=== PATIENT | female | born 1950 | race Caucasian/White ===

== ENCOUNTER 2023-10-16 12:35 | Outpatient (RCR) | payer MEDICARE, OTHER, SELFPAY | END 2024-01-13 15:00 | disposition home or self-care (01) | LOC: HO.WCC 12:35 | PROVIDERS: PCP Internal Medicine; Referring Provider Internal Medicine; Visit Provider Surgery | DX: E10.621 Type 1 diabetes mellitus with foot ulcer (principal); L97.522 Non-pressure chronic ulcer of other part of left foot with fat layer exposed; E10.69 Type 1 diabetes mellitus with other specified complication; M86.472 Chronic osteomyelitis with draining sinus, left ankle and foot; E10.40 Type 1 diabetes mellitus with diabetic neuropathy, unspecified; L84 Corns and callosities; M20.42 Other hammer toe(s) (acquired), left foot; Z89.422 Acquired absence of other left toe(s) | CPT/HCPCS: 11042; 11043; 11044; 87070; 87073; 87205; 99212 ==

== ENCOUNTER 2023-12-13 15:27 | Outpatient (REF) | payer MEDICARE, OTHER, SELFPAY ==
--- NOTE | ~2023-12-13 | MR_ITS ---
EXAMINATION: MR FOOT WITHOUT AND WITH CONTRAST, LEFT CLINICAL INFORMATION: Nonhealing wound of left third toe, evaluate for osteomyelitis. COMPARISON: None available. TECHNIQUE: MRI of the left foot was performed before and after the intravenous administration of 10 mL Gadavist on a high-field scanner. FINDINGS: The exam is partially limited by image degrading motion artifact on multiple series. Third Digit: There is prominent plantarflexion at the PIP joint. Possible superficial defect/ulceration along the dorsal aspect of the joint extending over 7 mm craniocaudal and 8 mm transverse. There is abnormal decreased T1, increased T2 signal in the subcutaneous soft tissues surrounding the joint with concomitant enhancement compatible with cellulitis. There is is abnormal decreased T1, increased T2 signal with concomitant enhancement crossing the joint involving at least the proximal half of the middle phalanx in the distal half of the proximal phalanx. There also appears to be irregularity and possible attenuation related to erosive change of the distal aspect of the proximal phalanx. The margins of the proximal portion of the middle phalanx is not well-defined due to the artifact. There is a joint effusion. The distal phalanx is likely intact. At the third MTP joint there is prominent dorsiflexion. A probable dorsal subluxation of the proximal phalanx. No definite effusion. Marrow signal normal. There is attenuation of the overlying subcutaneous soft tissues without a clear ulceration. There is low T1/low T2 signal compatible with fibrotic change. The third tarsometatarsal joint is intact. ADDITIONAL FINDINGS: There is [id number] osteoarthritis of the first, second, fourth and fifth tarsometatarsal joints manifested by cartilage loss and/or heterogeneity and subchondral cystic change. There is also arthrosis of the naviculocuneiform joints manifested by subchondral cystic change and edema. There is fluid signal throughout the dorsal subcutaneous soft tissues without enhancement compatible with edema. There is an oval-shaped mass noted along the plantar aspect of the foot overlying the proximal first metatarsal. This appears within or overlying the distal end of the plantar fascia. This measures 10 mm transverse, 7 mm dorsal to plantar, and 16 mm proximal to distal. MUSCLES/TENDONS: Unremarkable. MR/MR foot LT wo/w con IMPRESSION: 1. Abnormality of the third digit with an appearance most compatible with septic arthritis of the PIP joint and osteomyelitis of the middle and proximal phalanges. 2. Additional abnormality of the third MTP joint compatible with dorsiflexion and subluxation. 3. Osteoarthritis of the midfoot. 4. Soft tissue abnormality along the plantar aspect of the foot overlying the proximal first metatarsal. This could reflect a plantar fibroma or other soft tissue mass. 5. Generalized edema in the dorsal subcutaneous soft tissues.
[2023-12-13] MEDS: gadobutroL 10 ML VIAL IVPUSH (16:40)
== END 2023-12-13 15:28 | disposition home or self-care (01) ==
LOC: HO.MRI 15:27
PROVIDERS: PCP Internal Medicine; Visit Provider Physician Assistant
DX: E11.622 Type 2 diabetes mellitus with other skin ulcer (principal); L97.316 Non-pressure chronic ulcer of right ankle with bone involvement without evidence of necrosis; E11.65 Type 2 diabetes mellitus with hyperglycemia
CPT/HCPCS: 73720; A9585

== ENCOUNTER 2024-01-01 13:29 | Outpatient (AMB) | payer MEDICARE, OTHER, SELFPAY ==
--- NOTE | 2024-01-01 14:14 | MHC.OFFVIS ---
Intake Vital Signs 01/01/24 14:21 Height 5 ft 9 in Weight 240 lb BMI 35.4 Pulse 74 Pulse Source Pulse Oximeter Pulse Oximetry (%) 98 Intake Visit Reasons: reff wound care toe wound Allergies latex Allergy (Unknown, Verified 01/01/24 14:33) Unknown penicillin G Allergy (Unknown, Verified 01/01/24 14:22) Unknown HPI reff wound care toe wound HPI Details She is her for evaluation left third toe osteomyelitis. She has toe burning on walking and next day looked poorly. She had 10 years ago left second toe infection after blister and toe was removed and healed well. She has DM and says no vascular disease. She has seen Wound Clinic. She has no fever or chills. [facility] Medical History (Updated 01/05/24 @ 22:24 by Dalila Larsen MD) Osteomyelitis Rheumatoid arthritis Diabetes mellitus Asthma Surgical History H/O total hysterectomy H/O colectomy H/O gastric bypass Review of Systems [facility] [place] Details[place] toe discomfort left third Physical Exam Vital Signs: Last Vital Signs Pulse 74 01/01/24 14:21 Pulse Ox 98 01/01/24 14:21 BMI result Body Mass Index 35.4 Const Other: General: cooperative Orientation/consciousness: patient oriented x3 HEENT Head: Yes normal to inspection Mouth: Normal oral and palatal mucosa present Eyes General: appearance normal, both eyes and all related structures Pupils: Equal, round and reactive pupils present Resp Effort & Inspection: normal respiratory effort Cardio Rate: regular rate Rhythm: regular rhythm GI Palpation (GI): Soft to palpation and nontender General: Yes no CVA tenderness Back/Spine/Pelvis Back: no CVA tenderness Skin General skin exam: no rashes or lesions noted Neuro General: patient oriented x3 Cranial nerves: Yes CN's II-XII intact bilaterally and Yes Equal, round and reactive pupils present Extrem Other: toe mild swelling ,no cellulitis neuropathy Psych Appearance: grossly normal Assessment & Plan Assessment & Plan (1) Osteomyelitis: Code(s): M86.9 - Osteomyelitis, unspecified Plan: She has no necrosis area. She has likely chronic infection toe possibly even back to time other toe was infected. Do not think custodial IV antibiotics would add much in semichronic at least toe infection (at least September) and no ulcer of size indicating antibiotics would help healing. Would recommend no IV antibiotics at this time and follow Podiatry (maybe selective bone removal third toe since bothering patient). Coding Level of Care Code New Pt Level 4 (99874) Diagnoses Osteomyelitis M86.9
[2024-01-01 14:21] VITALS: PULSE 74; O2SAT 98; BMI 35.4
== END 2024-01-01 14:49 | disposition home or self-care (01) ==
LOC: HO.HID 13:29
PROVIDERS: PCP Internal Medicine; Visit Provider Internal Medicine
DX: M86.9 Osteomyelitis, unspecified (principal)
CPT/HCPCS: 99204

== ENCOUNTER → 2024-01-01 13:29 | Outpatient (BNVA) | payer MEDICARE, OTHER, SELFPAY | PROVIDERS: PCP Internal Medicine; Visit Provider Internal Medicine | DX: M86.9 Osteomyelitis, unspecified (principal) | CPT/HCPCS: 99202 ==

== ENCOUNTER 2024-12-31 10:40 | Outpatient (AMB) | payer MEDICARE, OTHER, SELFPAY ==
--- NOTE | 2024-12-31 10:55 | MHC.PC.OV ---
Vital Signs 12/31/24 11:10 Height 5 ft 9 in Weight 246 lb BMI 36.3 BP 98/80 Blood Pressure Location Rt brachial Position Sitting Respiration 14 Pulse 90 Pulse Source Pulse Oximeter Pulse Oximetry (%) 98 Oxygen Delivery Method Room Air Intake Visit Reasons: Est. Care dm-Asthma Intake Note: New patient visit Tool Technician Required: No Allergies latex Allergy (Unknown, Verified 12/31/24 10:55) Unknown penicillin G Allergy (Unknown, Verified 12/31/24 10:55) Unknown Medication List - Last Reconciled 12/31/24 by Nancy Thomas PA-C aspirin 81 mg PO DAILY cholecalciferol (vitamin D3) 25 mcg PO DAILY krill oil mg PO levothyroxine 112 mcg PO DAILY lisinopril 2.5 mg PO DAILY mecobalamin (vitamin B12) 1,000 mcg PO DAILY methotrexate (PF) 20 mg subcut QWEEK vitamin E mixed units PO Tobacco use date assessed: 12/31/24 Fall risk assessment: 1 Fall in past year Last assessed Fall Risk: 12/31/24 Dental Screening Dental Screen Date: 12/31/24 Did you have a dental visit in the last 12 months?: Yes Did you have a dental problem in the last 6 months where you did not have access to dental care?: No Was dental information given to patient?: Patient has dentist HPI Est. Care dm-Asthma HPI Details Pt is a 74 y/o female who presents today to establish care.. She has a hx of type 1 dm, pump controlled, RA, hypothyroid, vit d def, asthma. She is transferring practices because her PCP is now in [facility]. Endo: has a hx of t1dm. She is managed by Jovan marino. Her last A1c was 5.8. -recent left foot infection and is s/p 4th toe amputation 3 weeks ago. She has already lost toes 2-4 toes. Currently on keflex. -Last eye exam follows with retina specialist q 6 months Hypothyroid-on levothyroxine 112 mcg daily. States that this is always a managed by her PCP. Rheum: Dr. Lr. She is managed with methotrexate. Pulm: has a hx of asthma. Uses albuterol prn. She is on breo for maintenance. She denies needing any refills today. States that her asthma flares up seasonally but has overall been well-controlled. GI: s/p right coloectomy approximately 15 years ago. She intestinal torsion. Mammo: UTD- contreras Pap: s/p total hysterectomy bone density: UTD- follows with endo at [facility] colonoscopy: refuses [facility] Medical History (Updated 12/31/24 @ 11:45 by Nancy Thomas PA-C) Osteomyelitis Rheumatoid arthritis Diabetes mellitus Asthma Surgical History H/O total hysterectomy H/O colectomy H/O gastric bypass Family History (Updated 12/31/24 @ 11:19 by Betsy Martinez CMA) Mother High cholesterol Father Cardiovascular disease Other Thyroid disorder Social History (Updated 12/31/24 @ 11:17 by Betsy Martinez CMA) Housing: House Alcohol intake: current Comment: One glass of wine Patient Tobacco Use Status: Never used Tobacco e-Cigarette/Vaping Use: Never Used Second Hand Smoke Exposure: No service: No Current occupational status: retired Cognitive needs: No Hearing needs: Yes (hearing aids) Vision needs: Yes (glasses) Questionnaire PHQ-9 Over the last 2 weeks, how often have you been bothered by any of the following problems? 1. Little interest or pleasure in doing things: not at all 2. Feeling down, depressed, or hopeless: not at all 3. Trouble falling or staying asleep, or sleeping too much: not at all 4. Feeling tired or having little energy: not at all 5. Poor appetite or overeating: not at all 6. Feeling bad about yourself - or that you are a failure or have let yourself or your family down: not at all 7. Trouble concentrating on things, such as reading the newspaper or watching television: not at all 8. Moving or speaking so slowly that other people could have noticed. Or the opposite - being so fidgety or restless that you have been moving around a lot more than usual: not at all 9. Thoughts that you would be better off or of hurting yourself in some way: not at all Total score: 0 Depression Screening Interpretation: Negative Depression Screening Done: Yes 52964 - PHQ-9 Billing: Yes Source: Developed by Drs. Christopher Palacios, Juana Melton, Louis Moralez and colleagues, with an educational kena from [employer]. Thrive Questionnaire Date Thrive assessed: 12/31/24 I am a: Patient What is your living situation today?: I have a steady place to live Within the past 12 months, did the food you bought not last and you didn't have the money to get more?: Never true Within the past 12 months, did you worry whether your food would run out before you got money to buy more?: Never true Do you have trouble paying for medicines?: No Do you have trouble getting transportation to medical appointments?: No Do you have trouble paying your heating and electricity bill?: No Do you have trouble taking care of your child, family member or friend?: No Do you have trouble with day-to-day activities such as bathing, preparing meals, shopping, managing finances, etc.?: No Are you currently unemployed and looking for a job?: No Are you interested in more education?: No Please select the resources that you would like help with: None Currently or been in a relationship where the following occur: No concerns reported THRIVE Score: 0 AUDIT C Alcohol Use Questionnaire (AUDIT-C) 1. How often do you have a drink containing alcohol?: Monthly or less 2. How many drinks containing alcohol do you have on a typical day when you are drinking?: 1 or 2 3. How often do you have six or more drinks on one occasion?: Never Total Score: 1 Score Reviewed/Action Taken: Yes ZAINAB-7 AMB Questionnaire ZAINAB-7 Date ZAINAB - 7 assessed: 12/31/24 Feeling nervous, anxious, or on edge: 0 = Not at all Not being able to stop or control worryin = Not at all Worrying too much about different things: 0 = Not at all Trouble relaxin = Not at all Being so restless that it is hard to sit still: 0 = Not at all Becoming easily annoyed or irritable: 0 = Not at all Feeling afraid as if something awful might happen: 0 = Not at all Total ZAINAB-7 score (0-4 normal; 5-9 mild; 10-14 moderate; 15-21 severe): 0 Source: Developed by Drs. Christopher Palacios, Louis Saldaña and colleagues, with an educational kena from [employer] ZAINAB-7 Assessment Billing ZAINAB-7 Assessment Tool: ZAINAB-7 Assessment 61438 Physical exam (Primary Care) Vital Signs: Last Vital Signs Pulse 90 12/31/24 11:10 Resp 14 12/31/24 11:10 BP 98/80 12/31/24 11:10 Pulse Ox 98 12/31/24 11:10 Oxygen Delivery Method Room Air 12/31/24 11:10 BMI result Body Mass Index 36.3 Tobacco/Smoking Status: Tobacco use Status Tobacco use date assessed 12/31/24 12/31/24 11:20 Patient Tobacco Use Status Never used Tobacco 12/31/24 11:20 e-Cigarette/Vaping Use Never Used 12/31/24 11:20 PHQ-9: PHQ-9 Score PHQ-9: Total score 0 12/31/24 11:28 Depression Screening Interpretation: Negative Thrive Assessment: Date of Thrive Assessment Date Thrive assessed 12/31/24 12/31/24 11:20 Currently or been in a relationship where the following occur: No concerns reported Const Orientation/consciousness: patient oriented x3 HENMT Ears: hearing grossly normal bilaterally Neck Thyroid: Thyroid normal Lymphatic: no lymphadenopathy noted Resp Auscultation: clear to auscultation bilaterally Cardio Rate: regular rate Rhythm: regular rhythm Heart sounds: S1 normal heart sound present and S2 normal heart sound present GI Inspection: Yes normal to inspection Palpation (GI): Soft to palpation and Other GI palpation findings present (nontender, no cva tenderness) Auscultation: normoactive bowel sounds Rectal Exam - Female: deferred Skin General skin exam: no rashes or lesions noted Neuro General: patient oriented x3, gait normal and no focal motor deficits Coding Level of Care Code New Pt Level 4 (69540) Complex EM visit Add On G2211 Diagnoses Asthma J45.909 Rheumatoid arthritis M06.9 Hypothyroid E03.9 Diabetes mellitus type 1, with complication, on residential insulin pump E10.8; Z96.41 Dyslipidemia E78.5 Additional Codes ZAINAB-7 Assessment Billing - ZAINAB-7 Assessment Tool: ZAINAB-7 Assessment 07749 ([id number]) PHQ-9 - 32529 - PHQ-9 Billing: Yes ([id number]) Assessment & Plan Assessment & Plan (1) Asthma: Code(s): J45.909 - Unspecified asthma, uncomplicated Category: Medical Plan: Uncomplicated. Continue with current regimen (2) Rheumatoid arthritis: Code(s): M06.9 - Rheumatoid arthritis, unspecified Category: Medical Plan: Being managed by Rheumatology. On methotrexate but currently on hold due to recent left toe amputation and antibiotic use (3) Hypothyroid: Code(s): E03.9 - Hypothyroidism, unspecified Category: Medical Plan: TSH ordered (4) Diabetes mellitus type 1, with complication, on residential insulin pump: Code(s): E10.8 - Type 1 diabetes mellitus with unspecified complications; Z96.41 - Presence of insulin pump (external) (internal) Category: Medical Plan: Following up with [facility]. Currently well managed. Going to talk with them about starting Mounjaro to see if that will help her with weight loss. (5) Dyslipidemia: Code(s): E78.5 - Hyperlipidemia, unspecified Category: Medical Plan: Lipids ordered. We will monitor. Orders: Orders Complete Blood Count Auto Diff Today E03.9 - Hypothyroidism, unspecified, E10.8 - Type 1 diabetes mellitus with unspecified complications, E78.5 - Hyperlipidemia, unspecified, J45.909 - Unspecified asthma, uncomplicated, M06.9 - Rheumatoid arthritis, unspecified, Z96.41 - Presence of insulin pump (external) (internal) Comprehensive Met. Panel Today E03.9 - Hypothyroidism, unspecified, E10.8 - Type 1 diabetes mellitus with unspecified complications, E78.5 - Hyperlipidemia, unspecified, J45.909 - Unspecified asthma, uncomplicated, M06.9 - Rheumatoid arthritis, unspecified, Z96.41 - Presence of insulin pump (external) (internal) TSH reflex Free T4 Today E03.9 - Hypothyroidism, unspecified, E10.8 - Type 1 diabetes mellitus with unspecified complications, E78.5 - Hyperlipidemia, unspecified, J45.909 - Unspecified asthma, uncomplicated, M06.9 - Rheumatoid arthritis, unspecified, Z96.41 - Presence of insulin pump (external) (internal) Microalbumin, Random (w Creat) Today E03.9 - Hypothyroidism, unspecified, E10.8 - Type 1 diabetes mellitus with unspecified complications, E78.5 - Hyperlipidemia, unspecified, J45.909 - Unspecified asthma, uncomplicated, M06.9 - Rheumatoid arthritis, unspecified, Z96.41 - Presence of insulin pump (external) (internal) Medications: New levothyroxine 112 mcg PO DAILY 90 tabs 2RF
[2024-12-31 11:10] VITALS: BP 98/80; PULSE 90; RESP 14; O2SAT 98; BMI 36.3
== END 2024-12-31 11:58 | disposition home or self-care (01) ==
LOC: HO.HMCFM 10:40
PROVIDERS: PCP Physician Assistant; Visit Provider Physician Assistant
DX: J45.909 Unspecified asthma, uncomplicated (principal); M06.9 Rheumatoid arthritis, unspecified; E03.9 Hypothyroidism, unspecified; E10.8 Type 1 diabetes mellitus with unspecified complications; Z96.41 Presence of insulin pump (external) (internal); E78.5 Hyperlipidemia, unspecified

== ENCOUNTER → 2024-12-31 10:40 | Outpatient (BNVA) | payer MEDICARE, OTHER, SELFPAY | PROVIDERS: PCP Physician Assistant; Visit Provider Physician Assistant | DX: J45.909 Unspecified asthma, uncomplicated (principal); M06.9 Rheumatoid arthritis, unspecified; E03.9 Hypothyroidism, unspecified; E78.5 Hyperlipidemia, unspecified; E10.8 Type 1 diabetes mellitus with unspecified complications; Z96.41 Presence of insulin pump (external) (internal) | CPT/HCPCS: 96127; 99202 ==

== ENCOUNTER 2025-07-14 12:28 | Outpatient (AMB) | payer MEDICARE, OTHER, SELFPAY ==
--- OUTSIDE RECORDS SUMMARY | 2022-01-04 09:23 | XMS_ITS | Encounter Summary ---
Author Organization [facility] Address [address] [place] [address] Phone Care Team Providers Care Sound Technician Supervisor Name Role Phone Julieth Quiroz Unavailable [phone] Justin Stephens MD Unavailable [email or web address] Mariza Helm MD Unavailable [phone] Latanya Blackman MD Primary Care Provider Encounter Details Date Type Department Care Team (Late st Contact Info) Description 01/04/2022 9:23 AM EDT Hospital Encounter [facility] [address] [place] [id number] Carlos Chavez PA [address] [place] [id number] [email or web address] Social History Tobacco Use Types Packs/Day Years Used Date Smoking Tobacco: Never Passive Smoke Exposure: Never Smokeless Tobacco: Never Alcohol Use Standard Drinks/Week Comments Yes 1 (1 standard drink = 0.6 oz pur e alcohol) 1 or 2 times a year Education Answer Date Recorded Are you interested in more education? Not on lori e 01/25/2023 Are you concerned about learning? Not on file 01/25/2023 No 01/25/2023 No 01/25/2023 Food Answer Date Recorded Within the past 6 months we worried whether our food would run out before we got money to buy more. Never True 08/13/2024 Within the past 6 months the food we bought just didn't last and we didn't have enough money to get more. Never True Residential Stability Answer Date Recor ded What is your housing situation today? I have nabor murillo 08/13/2024 How many times have you move d in the past 12 months? Zero (I did not move) 08/13/2024 Paying for Meds Answer Date Recorded Do you have trouble paying for medicines? No 08/13/2024 Paying Utility Bills Answer Date Record ed Do you have trouble paying your heating or elect ricity bill? No 08/13/2024 Transportation Answer Date Recorded Has the lack of transportati on kept you from medical appointments or from getting medications? No 08/13/2024 Digital Access Answer Date Recorded Yes 08/13/2024 Yes 08/13/2024 Do you have reliable internet access at home? No 08/13/2024 Do you have a device (e.g., phone, tablet, computer) with a working camera? Yes 08/13/2024 Intimate Partner Violence Answer Date R ecorded Are you denied basic needs s uch as food, clothing, or medical care? No 12/08/2024 In the past 12 months have y ou been in a relationship with a person who hurts, threatens, or tries to control you? No 12/08/2024 Are you denied basic needs s uch as food, clothing, or medical care? No 12/08/2024 In the past 12 months have y ou been in a relationship with a person who hurts, threatens, or tries to control you? No 12/08/2024 Comments No Sex and Gender Information Value Date Recorded Sex Assigned at Female 10/07/2023 4:10 AM EST Legal Sex Female 9:59 PM EDT Gender Identity Female 10/07/2023 4:10 AM EST Sexual Orientation Straight 12/08/2024 3: 48 AM EDT documented as of this encounter Functional Status * Calculated C-SSRS Risk Score (Lifetime/Recent) Answer Date of Assessment Author No Risk Indicated 12/08/2024 3:33 AM EDT Kathy Gannon RN * [place] Suicide Severity Rating Scale (Screener/Recent Self-Report) Question Answer Date of Assessment Author 1. Wish to be (Past 1 Month) No 025 3:33 AM EDT Kathy Gannon RN 2. Non-Specific Active Suici keven Thoughts (Past 1 Month) No 12/08/2024 3:33 AM EDT Cristo Gannon RN 6. Suicidal Behavior (Lifetime) No 3:33 AM EDT Kathy Gannon RN documented as of this encounter Plan of Treatment Upcoming Encounters Date Type Department Care Team (Late st Contact Info) Description 07/19/2025 1:15 PM EDT Appointment [facility] [address] [place] [address] Julieth Quiroz PA [address] [place] [address] [email or web address] Acquisition 08/16/2025 10:20 AM EST Office Visit [facility] [address] [place] [address] [place] [address] Mariza Helm MD [address] [place] [address], [address] [place] [id number] 09/08/2025 9:30 AM EST Office Visit [facility] [address] [place] [address] [place] [address] Portia Kiser MD [address] [place] [address], [address] [place] [address] 11/16/2025 11:00 AM EST Nutrition [facility] [address] [place] [address] [place] [address] Scarlet Soares LDN [address] [place] [address], [address] [place] [id number] documented as of this encounter Procedures Procedure Name Priority Date/Time Associated Diagnosis Comments XR CHEST PA AND LATERAL 2 VIEWS Urgent/patient waiting 01/04/2022 9:30 AM EDT Acute bronchitis, unspecified organism documented in this encounter Results * XR CHEST PA AND LATERAL 2 VIEWS (01/04/2022 9:30 AM EDT) Anatomical Region Laterality Modality Chest Computed Radiogr aphy 01/04/2022 10:0 6 AM EDT Impressions 01/04/2022 10:11 AM EDT No acute cardiopulmonary process. Narrative 01/04/2022 10:11 AM EDT XR CHEST PA AND LATERAL 2 VIEWS COMPARISON: 10/26/19 chest radiographs. FINDINGS: Devices/Tubes/Lines: None. Lungs: No focal consolidation or pulmonary edema. Pleura: No pleural effusion or pneumothorax. Heart/Mediastinum: Normal heart and mediastinum. Bones/Soft Tissues: Mild degenerative changes of the thoracic spine. Procedure Note Zulay Mccarthy MD - 01/04/2022 XR CHEST PA AND LATERAL 2 VIEWS COMPARISON: 10/26/19 chest radiographs. FINDINGS: Devices/Tubes/Lines: None. Lungs: No focal consolidation or pulmonary edema. Pleura: No pleural effusion or pneumothorax. Heart/Mediastinum: Normal heart and mediastinum. Bones/Soft Tissues: Mild degenerative changes of the thoracic spine. IMPRESSION: No acute cardiopulmonary process. Carlos GARCIA IMG XR CHEST Final Resul t documented in this encounter Visit Diagnoses Not on filedocumented in this encounter Additional Health Concerns Infection Onset Date Last Indicated Resolved Time CoV-Risk 01/04/2022 01/04/2022 01/15/2022 1:2 1 AM EDT CoV-Risk 12/27/2023 12/27/2023 01/07/2024 1:22 AM EDT documented as of this encounter Care Teams Sound Technician Supervisor Relationship Specialty Start Date End Date Latanya Blackman MD [address] [place] [address] [email or web address] PCP - General Internal Medicine 08/15/20 01/05/25 Julieth Quiroz PA [address] [place] [address] [email or web address] Acquisition Historical LMR Provider 07/15/1706/01 Justin Stephens MD [email or web address] Historical LMR Provider 07/15/17 Mariza Helm MD [address] [place] [address], [address] [place] [id number] [email or web address] Historical LMR Provider 07/15/17 documented as of this encounter Additional Source Comments The information contained in this document represents components of the legal health record. It is not the complete legal health record.[facility]
--- NOTE | 2025-07-14 12:49 | MHC.PC.OV ---
Vital Signs 07/14/25 12:52 Pulse Oximetry (%) 98 Oxygen Delivery Method Room Air Intake Visit Reasons: med review Intake Note: Medication follow up Cement Finisher Apprentice Required: No Allergies latex Allergy (Unknown, Verified 07/14/25 12:49) Unknown penicillin G Allergy (Unknown, Verified 07/14/25 12:49) Unknown Medication List - Last Reconciled 07/14/25 by Nancy Thomas PA-C ascorbic acid (vitamin C) 250 mg PO DAILY aspirin 81 mg PO DAILY blood sugar diagnostic (OneTouch Ultra Test) cephalexin 500 mg PO QID cholecalciferol (vitamin D3) 25 mcg PO DAILY denosumab 60 mg subcut [id number] ergocalciferol (vitamin D2) 1,250 mcg PO QWEEK fluticasone furoate-vilanterol 200-25 mcg/dose 1 inh inhalation DAILY glucagon 3 mg/actuation (Baqsimi) mg intranasal insulin aspart U-100 (Novolog U-100 Insulin aspart) 1 - 40 units subcut DAILY krill oil mg PO leucovorin calcium 5 mg PO DAILY levothyroxine 112 mcg PO DAILY lisinopril 5 mg PO DAILY mecobalamin (vitamin B12) 1,000 mcg PO DAILY methotrexate (PF) 20 mg subcut QWEEK montelukast (Singulair) 10 mg PO BEDTIME montelukast 10 mg PO DAILY multivitamin 1 tab PO DAILY omeprazole 20 mg PO DAILY tramadol 50 mg PO Q6H PRN vitamin E mixed units PO Tobacco use date assessed: 07/14/25 Dental Screening Dental Screen Date: 12/31/24 HPI med review HPI Details Pt is a 74 y/o female who presents today to establish care.. She has a hx of type 1 dm, pump controlled, RA, hypothyroid, vit d def, asthma. She is transferring practices because [facility] Endo: has a hx of t1dm. She is managed by Diane marino. Her last A1c was 6. -foot healed from osteomyelitis. states the two remaining toes are intact. -Last eye exam follows with retina specialist q 6 months Hypothyroid-on levothyroxine 112 mcg daily. States that this is always a managed by her PCP. Rheum: Dr. Lr. She is managed with methotrexate. Pulm: has a hx of asthma. Uses albuterol prn. She is on breo for maintenance. She denies needing any refills today. States that her asthma flares up seasonally but has overall been well-controlled. GI: s/p right coloectomy approximately 15 years ago. She intestinal torsion. Pysch: does not sleep and does not want any medication for it. Mammo: UTD- [facility], needs more imaging on recent 06/29/25 scan- booked 10.20 Pap: s/p total hysterectomy bone density: UTD- follows with endo at [facility] colonoscopy: refuses [facility] Medical History (Updated 12/31/24 @ 11:45 by Nancy Thomas PA-C) Osteomyelitis Rheumatoid arthritis Diabetes mellitus Asthma Surgical History H/O total hysterectomy H/O colectomy H/O gastric bypass Family History (Updated 12/31/24 @ 11:19 by Betsy Martinez CMA) Mother High cholesterol Father Cardiovascular disease Other Thyroid disorder Social History (Updated 12/31/24 @ 11:17 by Betsy Martinez CMA) Housing: House Alcohol intake: current Comment: One glass of wine Patient Tobacco Use Status: Never used Tobacco e-Cigarette/Vaping Use: Never Used Second Hand Smoke Exposure: No service: No Current occupational status: retired Cognitive needs: No Hearing needs: Yes (hearing aids) Vision needs: Yes (glasses) Questionnaire Thrive Questionnaire Date Thrive assessed: 12/31/24 I am a: Patient What is your living situation today?: I have a steady place to live Within the past 12 months, did the food you bought not last and you didn't have the money to get more?: Never true Within the past 12 months, did you worry whether your food would run out before you got money to buy more?: Never true Do you have trouble paying for medicines?: No Do you have trouble getting transportation to medical appointments?: No Do you have trouble paying your heating and electricity bill?: No Do you have trouble taking care of your child, family member or friend?: No Do you have trouble with day-to-day activities such as bathing, preparing meals, shopping, managing finances, etc.?: No Are you currently unemployed and looking for a job?: No Are you interested in more education?: No Please select the resources that you would like help with: None Currently or been in a relationship where the following occur: No concerns reported THRIVE Score: 0 ZAINAB-7 AMB Questionnaire ZAINAB-7 Date ZAINAB - 7 assessed: 12/31/24 Source: Developed by Drs. Christopher Palacios, Juana Melton, Louis Moralez and colleagues, with an educational kena from [employer]. Physical exam (Primary Care) Vital Signs: Last Vital Signs Pulse Ox 98 07/14/25 12:52 Oxygen Delivery Method Room Air 07/14/25 12:52 Tobacco/Smoking Status: Tobacco use Status Tobacco use date assessed 07/14/25 07/14/25 12:55 Patient Tobacco Use Status Never used Tobacco 07/14/25 12:55 e-Cigarette/Vaping Use Never Used 07/14/25 12:55 Thrive Assessment: Date of Thrive Assessment Date Thrive assessed 12/31/24 07/14/25 12:55 Currently or been in a relationship where the following occur: No concerns reported Const Orientation/consciousness: patient oriented x3 HENMT Ears: hearing grossly normal bilaterally Neck Thyroid: Thyroid normal Lymphatic: no lymphadenopathy noted Resp Auscultation: clear to auscultation bilaterally Cardio Rate: regular rate Rhythm: regular rhythm Heart sounds: S1 normal heart sound present and S2 normal heart sound present GI Inspection: Yes normal to inspection Palpation (GI): Soft to palpation and Other GI palpation findings present (nontender, no cva tenderness) Auscultation: normoactive bowel sounds Rectal Exam - Female: deferred Skin General skin exam: no rashes or lesions noted Neuro General: patient oriented x3, gait normal and no focal motor deficits Coding Level of Care Code Est Pt Level 4 (39757) Complex EM visit Add On G2211 Diagnoses Diabetes mellitus type 1, with complication, on scale technician insulin pump E10.8; Z96.41 Hypothyroid E03.9 Rheumatoid arthritis M06.9 Asthma J45.909 Assessment & Plan Assessment & Plan (1) Diabetes mellitus type 1, with complication, on scale technician insulin pump: Code(s): E10.8 - Type 1 diabetes mellitus with unspecified complications; Z96.41 - Presence of insulin pump (external) (internal) Category: Medical Plan: very well managed by diane (2) Hypothyroid: Code(s): E03.9 - Hypothyroidism, unspecified Category: Medical Plan: Currently well-controlled. Continue current regimen. We will monitor (3) Rheumatoid arthritis: Code(s): M06.9 - Rheumatoid arthritis, unspecified Category: Medical Plan: Overall uses Tylenol Arthritis strength and rarely takes a tramadol if absolutely needed. Managed by Rheumatology (4) Asthma: Code(s): J45.909 - Unspecified asthma, uncomplicated Category: Medical Plan: Refilled inhalers today Medications: New montelukast (Singulair) 10 mg PO BEDTIME 90 tabs 3RF montelukast (Singulair) 10 mg PO BEDTIME 90 tabs 3RF omeprazole 20 mg PO DAILY 90 caps 3RF lisinopril 2.5 mg PO DAILY albuterol sulfate 90 mcg/actuation (Ventolin HFA) 2 puffs inhalation Q6H PRN 8.5 grams 5RF shortness of breath or wheezing Breo Ellipta 200-25 mcg/dose (fluticasone furoate-vilanterol) 1 inh inhalation DAILY 60 ea 5RF NS Refilled levothyroxine 112 mcg PO DAILY 90 tabs 2RF
[2025-07-14 12:52] VITALS: O2SAT 98
--- OUTSIDE RECORDS SUMMARY | 2025-07-14 15:43 | XMS_ITS | Encounter Summary ---
Author Organization [facility] Address [address] [place] [address] Phone Care Team Providers Care Implementation Services Analyst Name Role Phone Julieth Quiroz Unavailable [phone] Justin Stephens MD Unavailable [email or web address] Mariza Helm MD Unavailable [phone] Latanya Blackman MD Primary Care Provider Nancy Thomas Primary Care Provider [phone] Encounter Details Date Type Department Care Team (Latest Contact Info) Description 07/09/2022 Transcribe Orders Virtual Department [address] [place] [address] Julieth Quiroz PA [address] [place] [address] [email or web address] Breast screening (Primary Dx) Social History Tobacco Use Types Packs/Day Years Used Date Smoking Tobacco: Never Smokeless Tobacco: Never Alcohol Use Standard Drinks/Week Comments Yes 1 (1 standard drink = 0.6 oz pur e alcohol) 1 or 2 times a year Comments No Sex and Gender Information Value Date Recorded Sex Assigned at Female 10/07/2023 4:10 AM EST Legal Sex Female 9:59 PM EDT Gender Identity Female 10/07/2023 4:10 AM EST Sexual Orientation Straight 12/08/2024 3: 48 AM EDT documented as of this encounter Plan of Treatment Upcoming Encounters Date Type Department Care Team (Late st Contact Info) Description 07/19/2025 1:15 PM EDT Appointment [facility] [address] [place] [address] Julieth Quiroz PA [address] [place] [address] [email or web address] 08/16/2025 10:20 AM EST Office Visit [facility] [address] [place] [address] [place] [address] Mariza Helm MD [address] [place] [address], 1[address] [place] [address] 09/08/2025 9:30 AM EST Office Visit [facility] [address] [place] [address] [place] [address] Portia Kiser MD [address] [place] [address], [address] [place] [address] 11/16/2025 11:00 AM EST Nutrition [facility] [address] [place] [address] Scarlet Soares LDN [address] [place] [address], [address] [place] [address] documented as of this encounter Results * BI MAMMOGRAM SCREENING WITH TOMOSYNTHESIS WITH CAD (BILATERAL) (07/27/2022 12:34 PM EDT) Anatomical Region Laterality Modality Breast Left, Breast Right, Breast Bilateral Bila teral Mammography 07/31/2022 2:03 PM EDT Impressions 07/31/2022 2:09 PM EDT No mammographic signs of malignancy. Annual screening is recommended. BI-RADS CATEGORY: 2 - Benign finding. DENSITY: There are scattered fibroglandular densities. Narrative 07/31/2022 2:09 PM EDT Bilateral mammography is performed in conjunction with computed aided detection. 3-D tomography along with 2-D C view imaging was also performed. Comparison made to previous dated as far back as 10/19/2003 and as recent as 10/31/2020. No suspicious masses, areas of architectural distortion or suspicious microcalcifications. A few diffuse bilateral calcifications are stable. Procedure Note Torsten Reilly MD - 07/31/2022 Bilateral mammography is performed in conjunction with computed aideddetection. 3-D tomography along with 2-D C view imaging was alsoperformed. Comparison made to previous dated as far back as 10/19/2003 andas recent as 10/31/2020. No suspicious masses, areas of architectural distortion or suspiciousmicrocalcifications. A few diffuse bilateral calcifications are stable. IMPRESSION: No mammographic signs of malignancy. Annual screening is recommended. BI-RADS CATEGORY: 2 - Benign finding. DENSITY: There are scattered fibroglandular densities. Julieth GARCIA IMG MG EXAMS Final Result documented in this encounter Visit Diagnoses Diagnosis Breast screening- Primary Breast screening, unspecified Breast screening Breast screening, unspecified documented in this encounter Additional Health Concerns Infection Onset Date Last Indicated Resolved Time CoV-Risk 12/27/2023 12/27/2023 01/07/2024 1:22 AM EDT documented as of this encounter Care Teams Implementation Services Analyst Relationship Specialty Start Date End Date Latanya Blackman MD [address] [place] [address] PCP - General Internal Medicine 08/15/20 01/05/25 Nancy Thomas PA [address] [place] [address] PCP - General Physician Supervisor Reclamation 01/06/25 Julieth Quiroz PA [address] [facility] [place] [address] [email or web address] Historical LMR Provider 07/15/1706/01 Justin Stephens MD [email or web address] Historical LMR Provider 07/15/17 Mariza Helm MD [address] [place] [address], 1[address] [place] [address] [email or web address] Historical LMR Provider 07/15/17 documented as of this encounter Additional Source Comments The information contained in this document represents components of the legal health record. It is not the complete legal health record.[facility]
--- OUTSIDE RECORDS SUMMARY | 2025-07-14 15:43 | XMS_ITS | Encounter Summary ---
Author Organization [facility] Address [address] [place] [address] Phone Care Team Providers Care Sanitation Director Name Role Phone Julieth Quiroz Unavailable [phone] Justin Stephens MD Unavailable [email or web address] Mariza Helm MD Unavailable [phone] Latanya Blackman MD Primary Care Provider Nancy Thomas Primary Care Provider [phone] Encounter Details Date Type Department Care Team (Late st Contact Info) Description 08/14/2024 Procedure Pass OR Admitting Dept - Virtual Department [address] [place] [address] Social History Tobacco Use Types Packs/Day Years [...] as food, clothing, or medical care? No 08/13/2024 In the past 12 months have y ou been in a relationship with a person who hurts, threatens, or tries to control you? No 08/13/2024 Are you denied basic needs s uch as food, clothing, or medical care? No 08/13/2024 In the past 12 months have y ou been in a relationship with a person who hurts, threatens, or tries to control you? No 08/13/2024 Comments No Sex and Gender Information Value Date Recorded Sex Assigned at Female 10/07/2023 4:10 AM EST Legal Sex Female 9:59 PM EDT Gender Identity Female 10/07/2023 4:10 AM EST Sexual Orientation Straight 12/08/2024 3: 48 AM EDT documented as of this encounter Plan of Treatment Upcoming Encounters Date Type Department Care Team (Late st Contact Info) Description 07/19/2025 1:15 PM EDT Appointment [address] [address] Julieth Quiroz PA [address] [place] [place] [address] [email or web address] 08/16/2025 10:20 AM EST Office Visit [facility] [address] [place] [address] Mariza Helm MD [address] [facility], [address] [place] [address] 09/08/2025 9:30 AM EST Office Visit [facility] [address] [place] [address] Portia Kiser MD [address], [address] [place] [address] 11/16/2025 11:00 AM EST Nutrition [facility] [address] [place] [address] [place] [address] Scarlet Soares LDN [address] [place] [address], [address] [place] [address] documented as of this encounter Visit Diagnoses Not on filedocumented in this encounter Care Teams Sanitation Director Relationship Specialty Start Date End Date Latanya Blackman MD [address] [place] [address] PCP - General Internal Medicine 08/15/20 01/05/25 Nancy Thomas PA [address] [place] [address] PCP - General Physician Cookie Mixer Helper 01/06/25 Julieth Quiroz PA [address] [place] [address] [email or web address] Historical LMR Provider 07/15/1706/01 Justin Stephens MD [email or web address] Historical LMR Provider 07/15/17 Mariza Helm MD [address] [place] [address], [address] [place] [address] [email or web address] Historical LMR Provider 07/15/17 documented as of this encounter Additional Source Comments The information contained in this document represents components of the legal health record. It is not the complete legal health record.[facility]
--- OUTSIDE RECORDS SUMMARY | 2025-07-14 15:43 | XMS_ITS | Encounter Summary ---
Author Organization [facility] Address [address] [place] [address] Phone Care Team Providers Care Terminal Gauger Supervisor Name Role Phone Julieth Quiroz Unavailable [phone] Justin Stephens MD Unavailable [email or web address] Mariza Helm MD Unavailable [phone] Latanya Blackman MD Primary Care Provider [phone] Nancy Thomas Primary Care Provider [phone] Encounter Details Date Type Department Care Team (Late st Contact Info) Description 07/09/2022 Procedure Pass [address] [address] Social History Tobacco Use Types Packs/Day Years [...] Info) Description 07/19/2025 1:15 PM EDT Appointment [address] [address] Julieth Quiroz PA [address] [place] [address] [email or web address] 08/16/2025 10:20 AM EST Office Visit [facility] [address] [place] [address] Mariza Helm MD [address] [place] [address], [address] [place] [address] 09/08/2025 9:30 AM EST Office Visit [facility] [address] [place] [address] Portia Kiser MD [address] [place] [address], [address] [place] [address] 11/16/2025 11:00 AM EST Nutrition [facility] [address] [place] [address] Scarlet Soares LDN [address] [place] [address], [address] [place] [address] documented as of this encounter Visit Diagnoses Not on filedocumented in this encounter Additional Health Concerns Infection Onset Date Last Indicated Resolved Time CoV-Risk 12/27/2023 12/27/2023 01/07/2024 1:22 AM EDT documented as of this encounter Care Teams Terminal Gauger Supervisor Relationship Specialty Start Date End Date Latanya Blackman MD [address] [place] [address] PCP - General Internal Medicine 08/15/20 01/05/25 Nancy Thomas PA [address] [place] [address] PCP - General Physician Manager Lighting 01/06/25 Julieth Quiroz PA [address] [place] [address] Historical LMR Provider 07/15/1706/01 Justin Stephens MD [email or web address] Historical LMR Provider 07/15/17 Mariza Helm MD [address] [place] [address], [address] [place] [address] [email or web address] Historical LMR Provider 07/15/17 documented as of this encounter Additional Source Comments The information contained in this document represents components of the legal health record. It is not the complete legal health record.[facility]
--- OUTSIDE RECORDS SUMMARY | 2025-07-14 15:43 | XMS_ITS | Encounter Summary ---
Author Organization [facility] Address [address] [place] [address] Phone Care Team Providers Care Felt Strip Finisher Name Role Phone Julieth Quiroz Unavailable [phone] Justin Stephens MD Unavailable [email or web address] Mariza Helm MD Unavailable [phone] Latanya Blackman MD Primary Care Provider Nancy Thomas Primary Care Provider [phone] Encounter Details Date Type Department Care Team (Late st Contact Info) Description 08/13/2024 Procedure Pass [facility], [address] [address] Social History Tobacco Use Types Packs/Day Years [...] your housing situation today? I have nabor mruillo 08/13/2024 How many times have you move [...] Date of Assessment Author No Risk Indicated 08/13/2024 9:21 AM Judy Norwood RN * [place] Suicide Severity Rating Scale (Screener/Recent Self-Report) Question Answer Date of Assessment Author 1. Wish to be (Past 1 Month) No 024 9:21 AM EST Rashid, Judy, RN 2. Non-Specific Active Suici keven Thoughts (Past 1 Month) No 08/13/2024 9:21 AM Ron Norwood RN 6. Suicidal Behavior (Lifetime) No 9:21 AM Judy Norwood RN documented as of this encounter Plan of Treatment Upcoming Encounters Date Type Department Care Team (Late st Contact Info) Description 07/19/2025 1:15 PM EDT Appointment [facility] [address] [place] [address] [place] [address] [email or web address] 08/16/2025 10:20 AM EST Office Visit [facility] [address] [place] [address] Mariza Helm MD [address] [place] [address], [address] [place] [address] 09/08/2025 9:30 AM EST Office Visit [facility] Rheumatology [address] [place] [address] Portia Kiser MD [address] [place] [address], [address] [place] [address] 11/16/2025 11:00 AM EST Nutrition [facility] [address] [place] [address] Scarlet Soares LDN [address] [place] [address], [address] [place] [address] documented as of this encounter Visit Diagnoses Not on filedocumented in this encounter Care Teams Felt Strip Finisher Relationship Specialty Start Date End Date Latanya Blackman MD [address] [place] [address] PCP - General Internal Medicine 08/15/20 01/05/25 Nancy Thomas PA [address] [place] [address] PCP - General Physician Marketing Traffic Coordinator 01/06/25 Julieth Quiroz PA [address] [place] [address] [email or web address] Historical LMR Provider 07/15/1706/01 Justin Stephens MD [email or web address] Historical LMR Provider 07/15/17 Mariza Helm MD [address] [place] [address], [address] [place] [address] [email or web address] Historical LMR Provider 07/15/17 documented as of this encounter Additional Source Comments The information contained in this document represents components of the legal health record. It is not the complete legal health record.[facility]
--- OUTSIDE RECORDS SUMMARY | 2025-07-14 15:43 | XMS_ITS | Encounter Summary ---
Author Organization [facility] Address [address] [facility] [address] [place] [address] Phone Care Team Providers Care Cat Operator Name Role Phone Julieth Quiroz Unavailable [phone] Justin Stephens MD Unavailable [email or web address] Mariza Helm MD Unavailable [phone] Latanya Blackman MD Primary Care Provider Nancy Thomas Primary Care Provider [phone] Encounter Details Date Type Department Care Team (Late st Contact Info) Description 08/12/2024 Ancillary Orders [facility], X-Ray - [address] [address] Julieth Quiroz PA [address] [place] [address] [email or web address] Nodule of finger of left hand (Primary Dx) Social History Tobacco Use Types [...] your housing situation today? I have nabor sing 08/13/2024 How many times have you move [...] 08/13/2024 9:21 AM Judy [place] RN * [place] Suicide Severity Rating Scale (Screener/Recent Self-Report) Question Answer Date of Assessment Author 1. Wish to be (Past 1 Month) No 024 9:21 AM Judy Norwood RN 2. Non-Specific Active Suici keven Thoughts (Past 1 Month) No 08/13/2024 9:21 AM Ron [place] RN 6. Suicidal Behavior (Lifetime) No 9:21 AM Judy [place] RN documented as of this encounter Plan of Treatment Upcoming Encounters Date Type Department Care Team (Late st Contact Info) Description 07/19/2025 1:15 PM EDT Appointment [address] [address] Julieth Quiroz PA [address] [place] [address] [email or web address] 08/16/2025 10:20 AM EST Office Visit [facility] [address] [place] [address] [place] [address] Mariza Helm MD [address] [place] [address] 09/08/2025 9:30 AM EST Office Visit [facility] Rheumatology [address] [place] [address] [place] [address] Portia Kiser MD [address] [place] [address], [address] [place] [address] 11/16/2025 11:00 AM EST Nutrition [facility] [address] [place] [address] [place] [address] Scarlet Soares LDN [address] [place] [address], [address] [place] [address] documented as of this encounter Results * XR HAND 3 OR MORE VIEWS (LEFT) (08/12/2024 9:20 AM EST) Anatomical Region Laterality Modality Hand Left Computed Radiogr aphy 08/12/2024 3:07 PM EST Impressions 08/12/2024 3:08 PM EST No visualized acute fracture or dislocation within the fifth finger or elsewhere within the left hand. There is a BB marker placed adjacent to the mid fifth metacarpal without visualized acute fracture or other soft tissue abnormality. 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 There may be mild marginal erosive change involving several MCP and PIP joints, correlate with rheumatologic history. Narrative 08/12/2024 3:08 PM EST XR HAND 3 OR MORE VIEWS (LEFT) Referring clinician's provided indication for this examination in Epic: Pain; 5th finger COMPARISON: XR HAND 3 OR MORE VIEWS (LEFT) 2022- Procedure Note Jesus Manuel Strong MD - 08/12/2024 XR HAND 3 OR MORE VIEWS (LEFT) Referring clinician's provided indication for this examination in Epic:Pain; 5th finger COMPARISON: XR HAND 3 OR MORE VIEWS (LEFT) IMPRESSION: No visualized acute fracture or dislocation within the fifth finger orelsewhere within the left hand. There is a BB marker placed adjacent tothe mid fifth metacarpal without visualized acute fracture or other softtissue abnormality. Moderately severe osteoarthritis throughout the lefthand and wrist with joint space narrowing involving most joints of allfingers and joint space narrowing within the wrist particularly theradiocarpal joint. There may be mild marginal erosive change involvingseveral MCP and PIP joints, correlate with rheumatologic history. Julieth GARCIA IMG XR UPPER EXTREMITY Final Re sult documented in this encounter Visit Diagnoses Diagnosis Nodule of finger of left hand- Primary Nodule of finger of left hand documented in this encounter Care Teams Cat Operator Relationship Specialty Start Date End Date Latanya Blackman MD [address] [place] [address] [email or web address] PCP - General Internal Medicine 08/15/20 01/05/25 Nancy Thomas PA [address] [place] [address] PCP - General Physician Straightener And Aligner 01/06/25 Julieth Quiroz PA 15 [place] [address] [email or web address] Historical LMR Provider 07/15/1706/01 Justin Stephens MD [email or web address] Historical LMR Provider 07/15/17 Mariza Helm MD 22 [facility], [address] [place] [address] [email or web address] Historical LMR Provider 07/15/17 documented as of this encounter Additional Source Comments The information contained in this document represents components of the legal health record. It is not the complete legal health record.[facility]
--- OUTSIDE RECORDS SUMMARY | 2025-07-14 15:44 | XMS_ITS | Encounter Summary ---
Author Organization [facility] Address [address] [facility] [address] [place] [address] Phone Care Team Providers Care Health Spa Manager Name Role Phone Julieth Quiroz Unavailable [phone] Justin Stephens MD Unavailable [email or web address] Mariza Helm MD Unavailable [phone] Latanya Blackman MD Primary Care Provider [phone] Nancy Thomas Primary Care Provider [phone] Encounter Details Date Type Department Care Team (Late st Contact Info) Description 06/12/2022 Transcribe Orders [facility] [address] [place] [address] Julieth Quiroz PA [address] [place] [address] [email or web address] Social History Tobacco Use Types Packs/Day Years [...] Info) Description 07/19/2025 1:15 PM EDT Appointment [facility] [address] [place] [address] Julieth Quiroz PA [address] [place] [address] [email or web address] 08/16/2025 10:20 AM EST Office Visit [facility] [address] [place] [address] Mariza Helm MD [address] [place] [address], 1[address] [place] [address] 09/08/2025 9:30 AM EST Office Visit [facility] Rheumatology [address] [place] [address] Portia Kiser MD [address] [place] [address], [address] [place] [address] 11/16/2025 11:00 AM EST Nutrition [facility] [address] [place] [address] Scarlet Soares LDN [address] [place] [address], [address] [place] [address] documented as of this encounter Visit Diagnoses Not on filedocumented in this encounter Additional Health Concerns Infection Onset Date Last Indicated Resolved Time CoV-Risk 12/27/2023 12/27/2023 01/07/2024 1:22 AM EDT documented as of this encounter Care Teams Health Spa Manager Relationship Specialty Start Date End Date Latanya Blackman MD 15 [place] [address] PCP - General Internal Medicine 08/15/20 01/05/25 Nancy Thomas PA [address] [place] [address] PCP - General Physician Shoe Worker 01/06/25 Julieth Quiroz PA 15 [facility] [email or web address] [place] [address] [email or web address] Historical LMR Provider 07/15/1706/01 Justin Stephens MD [email or web address] Historical LMR Provider 07/15/17 Mariza Helm MD 22 [facility], [address] [place] [address] [email or web address] Historical LMR Provider 07/15/17 documented as of this encounter Additional Source Comments The information contained in this document represents components of the legal health record. It is not the complete legal health record.[facility]
--- OUTSIDE RECORDS SUMMARY | 2025-07-14 15:44 | XMS_ITS | Encounter Summary ---
Author Organization [facility] Address [address] [facility] [address] [place] [address] Phone Care Team Providers Care Television Operator Name Role Phone Julieth Quiroz Unavailable [phone] Scarlet Rhoades LINE INSTALLATION SUPERVISOR Unavailable Unavailable Justin Stephens MD Unavailable [email or web address] Shana Borges MD Unavailable [address] LINE INSTALLATION SUPERVISOR Unavailable Roselyn Crespo MD Unavailable [phone] Mariza Helm MD Unavailable [phone] Faisal Solomon MD Unavailable Latanya Blackman MD Primary Care Provider [phone] Latanya Blackman MD Primary Care Provider [phone] Nancy Thomas Primary Care Provider [phone] Encounter Details Date Type Department Care Team (Late st Contact Info) Description 04/08/2019 Procedure Pass [address] [place] [address] Social History Tobacco Use Types Packs/Day Years [...] AM EDT documented as of this encounter Last Filed Vital Signs Vital Sign Reading Time Taken Comments Blood Pressure - - Pulse - - Temperature - - Respiratory Rate - - Oxygen Saturation - - Inhaled Oxygen Concentration - - Weight 113.4 kg (250 lb) 04/11/2019 8:11 AM EDT Height 175.3 cm (5' 9 ) 04/11/2019 8:11 AM EDT Body Mass Index 36.92 04/11/2019 8:11 AM EDT documented in this encounter Plan of Treatment Upcoming Encounters Date Type Department Care Team (Late st Contact Info) Description 07/19/2025 1:15 PM EDT Appointment [address] [address] Julieth Quiroz PA [address] [place] [address] [email or web address] 08/16/2025 10:20 AM EST Office Visit [facility] [address] [place] [address] [place] [address] Mariza Helm MD [address] [place] [address], 1[address] [place] [address] 09/08/2025 9:30 AM EST Office Visit [facility] Rheumatology [address] [place] [address] [place] [address] Portia Kiser MD [address] [place] [address], [address] [place] [address] 11/16/2025 11:00 AM EST Nutrition [facility] [address] [place] [address] [place] [address] Scarlet Soares LDN [address] [place] [address], 1[address] [place] [address] [email or web address] documented as of this encounter Visit Diagnoses Not on filedocumented in this encounter Additional Health Concerns Infection Onset Date Last Indicated Resolved Time MRSA Comment:Import to add expiration date of 12/16/2021 per Infection Control as part of historical infection status reconciliation 10/03/2010 10/03/2010 12/17/19 1:36 AM EDT CoV-Risk 01/04/2022 01/04/2022 01/15/2022 1:21 AM EDT CoV-Risk 12/27/2023 12/27/2023 01/07/2024 1:22 AM EDT documented as of this encounter Care Teams Television Operator Relationship Specialty Start Date End Date Latanya Blackman MD 15 [place] [address] [email or web address] PCP - General Internal Medicine 08/15/17 08/14/20 Latanya Blackman MD [address] [place] [address] [email or web address] PCP - General Internal Medicine 08/15/20 01/05/25 Nancy Thomas PA [address] [place] [address] PCP - General Physician Professional System Administrator 01/06/25 Julieth Quiroz PA [address] [place] [address] [email or web address] Historical LMR Provider 07/15/1706/01 Scarlet Rhoades NP [address] [place] [address] Historical LMR Provider 07/15/1710/07 Justin Stephens MD [email or web address] Historical LMR Provider 07/15/17 Shana Borges MD [address] [place] [address] Historical LMR Provider 07/15/[address] NP 22 [place] [address] Historical LMR Provider 07/15/17 Roselyn Crespo MD [address] [address] [email or web address] Historical LMR Provider 07/15/17 Mariza Helm MD [address] [place] [address] Historical LMR Provider 07/15/17 Faisal Solomon MD [address] [place] [id number] Historical LMR Provider 07/15/17 2 documented as of this encounter Additional Source Comments The information contained in this document represents components of the legal health record. It is not the complete legal health record.[facility]
--- OUTSIDE RECORDS SUMMARY | 2025-07-14 15:44 | XMS_ITS | Encounter Summary ---
Author Organization [facility] Address [address] [facility] [address] [place] [address] Phone Care Team Providers Care Tub Mender Name Role Phone Justin Stephens MD Unavailable [email or web address] Mariza Helm MD Unavailable [phone] Nancy Thomas Primary Care Provider [phone] Encounter Details Date Type Department Care Team (Late st Contact Info) Description 07/01/2025 Ancillary Orders [facility], [address] [address] Julieth Quiroz PA [address] [place] [address] [email or web address] Abnormal mammogram (Primary Dx) Social History Tobacco Use Types [...] Info) Description 07/19/2025 1:15 PM EDT Appointment [address] [address] Julieth Quiroz PA [address] [place] [id number] [email or web address] 08/16/2025 10:20 AM EST Office Visit [facility] [address] [place] [address] Mariza Helm MD 22 [facility], [address] [place] [address] 09/08/2025 9:30 AM EST Office Visit [facility] Rheumatology [address] [place] [address] Portia Kiser MD [address] [facility], [address] [place] [address] 11/16/2025 11:00 AM EST Nutrition [facility] [address] [place] [address] Scarlet Soares LDN [address] [facility], [address] [place] [address] [email or web address] Scheduled Orders Name Type Priority Associated Diagnoses Orde r Schedule US Axilla - Breast Imaging (Right) Imaging Routine Abnormal mammogram Expected: 07/01/2025, Expires: 07/01/2026 documented as of this encounter Visit Diagnoses Diagnosis Abnormal mammogram- Primary Abnormal mammogram, unspecified documented in this encounter Care Teams Tub Mender Relationship Specialty Start Date End Date Nancy Thomas PA [address] [place] [address] PCP - General Physician Cloth Trimmer Hand 01/06/25 Justin Stephens MD [email or web address] Historical LMR Provider 07/15/17 Mariza Helm MD 22 [facility], [address] [place] [address] [email or web address] Historical LMR Provider 07/15/17 documented as of this encounter Additional Source Comments The information contained in this document represents components of the legal health record. It is not the complete legal health record.[facility]
--- OUTSIDE RECORDS SUMMARY | 2025-07-14 15:44 | XMS_ITS | Clinical Summary ---
Author Organization [facility] Address [address] [place] [address] Phone Care Team Providers Care Paper Wrapping Machine Operator Name Role Phone Justin Stephens MD Unavailable [email or web address] Mariza Helm MD Unavailable [phone] Nancy Thomas Primary Care Provider [phone] Allergies Active Allergy Reactions Criticality Noted Date Comments Belladonna Alkaloids Unknown 08/09/2017 Latex Rash Low 05/21/2019 Trouble breathing Penicillins Unknown 08/09/2017 Pt was 11 yrs old Tolerated cefazolin test dose [facility] 08/17 Simvastatin Unknown 08/09/2017 Pain head to toe, crippling pain Tetracyclines Hives 08/09/2017 Medications aspirin 81 MG EC tablet Take 81 mg by mouth daily. Active KRILL OIL ORAL Take by mouth daily. Active omeprazole (PRILOSEC) 20 MG capsule 1 cap daily Active infusion set for insulin pump ISet 13mm silouette Activ e cyanocobalamin, vitamin B-12, 1,000 mcg/mL Kit Inject as directed every 30 (thirty) days. Use as directed Active denosumab (PROLIA) 60 mg/mL Syrg subcutaneous syringe Inject 1 mL (60 mg total) under the skin every 6 (six) months. Please deliver to md office 1 Syringe 1 019 Active albuterol 90 mcg/actuation inhaler Inhale 2 puffs into the lungs every 6 (six) hours as needed for wheezing. Active ONETOUCH ULTRA TEST Strp stripsIndication s:Type 1 diabetes mellitus with diabetic neuropathy,Insul in pump in place 1 each by Miscellaneous route 4 (four) times a day before meals and nightly. 400 strip 3 021 Active montelukast (SINGULAIR) 10 mg tablet Take 10 mg by mouth daily. Active syringe with needle (BD TUBERCULIN SYRINGE) 1 mL 27 x 1/2 SyrgIndications: Insulin pump in place,Encounter for methotrexate monitoring,Rheum atoid arthritis involving multiple sites with positive rheumatoid factor 1 ML 27 X 1/2 DIRECTED WEEKLY 50 each 1 021 Active fluticasone furoate-vilanter oL (BREO ELLIPTA) 200-25 mcg/dose inhaler Inhale 1 puff into the lungs daily. Active multivitamin/iro n/folic acid (CENTRUM WOMEN ORAL) Take by mouth daily. Active ascorbic acid (VITAMIN C ORAL) Take 250 mg by mouth daily. Active leucovorin (WELLCOVORIN) 5 mg tabletIndication s:Rheumatoid arthritis involving multiple sites with positive rheumatoid factor,Encounter for methotrexate monitoring,Insul in pump in place TAKE 1 TABLET BY MOUTH EVERY 24 HOURS AFTER MTX 12 tablet 5 024 Active GVOKE HYPOPEN 2-PACK 1 mg/0.2 mL subcutaneous auto-injectorInd ications:Type 1 diabetes mellitus with diabetic neuropathy,Insul in pump in place Inject 0.2 mL (1 mg total) under the skin as needed (in case of severe hypoglycemia requiring assistance or assocated with LOC). E11.40 Z96.41 0.4 mL 4 024 Active ergocalciferol (DRISDOL) 50,000 unit capsuleIndicatio ns:Rheumatoid arthritis involving multiple sites with positive rheumatoid factor,Age-relat ed osteoporosis without current pathological fracture,Vitamin D deficiency TAKE ONE CAPSULE BY MOUTH ONE TIME PER WEEK 12 capsule 1 024 Active methotrexate sodium, PF, 25 mg/mL injectionIndicat ions:Rheumatoid arthritis involving multiple sites with positive rheumatoid factor,Encounter for monitoring denosumab therapy INJECT 0.6MLS (15 MG) SUBCUTANESOUSLY ONCE EVERY WEEK 4 mL 2 024 Active levothyroxine (SYNTHROID, LEVOTHROID) 112 MCG tabletIndication s:Acquired hypothyroidism Take 1 tablet (112 mcg total) by mouth every morning. 6 days a week 90 tablet 1 025 Active acetaminophen (TYLENOL) 325 mg tablet TAKE 3 TABLETS BY MOUTH EVERY 6 HOURS NEEDED FOR MODERATE PAIN 025 Active cefadroxil (DURICEF) 1 gram tablet Take 1 tablet by mouth 2 (two) times a day. 025 Active cholecalciferol (VITAMIN D3) 25 MCG (1,000 unit) tablet Take 1,000 Units by mouth daily. 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 90 tablet 1 025 2024 Discontinued Active Problems Problem Noted Date Diagnosed Date Diabetic foot ulcer 12/08/2024 S/P amputation of lesser toe, left 11/17/2024 History of penicillin allergy 08/14/2024 Assessment & Plan (08/16/2024 11:24 AM EST): The patient reports penicillin allergy as a child when she was hospitalized for pneumonia, and has not taken it since Plan as above She should also be counseled to have penicillin testing with an web press operator apprentice. Assessment & Plan (08/15/2024 10:55 AM EST): The patient reports penicillin allergy as a child. This certainly possible and likely that she would tolerate cephalosporins. We should consider a test dose of a cephalosporin if that becomes an appropriate antibiotic for her to use. She should also be counseled to have penicillin testing with an web press operator apprentice. Assessment & Plan (08/14/2024 1:45 PM EST): The patient reports penicillin allergy as a child. This certainly possible and likely that she would tolerate cephalosporins. We should consider a test dose of a cephalosporin if that becomes an appropriate antibiotic for her to use. She should also be counseled to have penicillin testing with an web press operator apprentice. I will see the patient over the weekend No associated orders from this encounter found during lookback period of 72 hours. Osteomyelitis of toe of left foot 08/13/2024 Assessment & Plan (12/10/2024 2:13 PM EDT): S/p ray amputation of 3rd toe and metatarsal head. Cultures from OR growing MSSA only. Await path re whether osteo present at margins, but Dr Crespo thought remaining metatarsal bone was healthy-appearing. D/c current abts, rx cefazolin. Case discussed in detail with patient and Dr Isaias Eduardo to see tomw Assessment & Plan (12/10/2024 2:58 PM EDT): Osteomyelitis now involving the third toe, third metatarsal head and question of the fourth metatarsal head which could be postsurgical change. started on broad- spectrum antibiotics prior to OR. She has a penicillin allergy but does tolerate cephalosporins. She is doing well. The wound culture from the fourth toe is growing Staph aureus, last time MSSA. this is from the fourth toe. Awaiting tissue cultures right now to determine margins but surgery believes clinically no osteo. Changed to cefazolin for now. Planning oral abx based on path, hopeful to determine tomorrow. Discussed extensively with ID. Assessment & Plan (12/09/2024 1:34 PM EDT): Osteomyelitis now involving the third toe, third metatarsal head and question of the fourth metatarsal head which could be postsurgical change. The patient was started on broad-spectrum antibiotics pending surgery. She has a penicillin allergy but does tolerate cephalosporins. She is doing well. The wound culture from the fourth toe is growing Staph aureus. During her last surgery would be MSSA. This is from the fourth toe. On the Gram stain from the third toe culture and tissue culture and smear there are no white blood cells or organisms seen. Will need to touch base with ID when results are available. Assessment & Plan (12/08/2024 2:14 PM EDT): Obvious swelling and redness of the left third toe, with probable osteomyelitis in the toe. Abnormalities are also present in the third and fourth metatarsal heads which could be either osteomyelitis or postoperative changes. IV vancomycin is a reasonable treatment at this time pending further information. Levofloxacin and metronidazole are likely broader than she needs, but I would not object to continuing them for 1 to 2 days pending further information . There is a plan to take her to the OR this afternoon for a transmetatarsal amputation. Hopefully intraoperative cultures will be taken. On her previous trip to the OR, MSSA was found, and she tolerated cefazolin treatment. Assessment & Plan (12/08/2024 12:11 PM EDT): Osteomyelitis now involving the third toe, third metatarsal head and question of the fourth metatarsal head which could be postsurgical change. The patient will be started on broad-spectrum antibiotics pending surgery. She has a penicillin allergy but does tolerate cephalosporins. Last admission she tolerated Levaquin and vancomycin. Will add Flagyl to that regimen. She is NPO. Dr. Crespo is aware and plans to take her to the operating room later today for likely transmetatarsal amputation. Assessment & Plan (08/18/2024 5:46 PM EST): -Left 4th toe osteomyelitis -MRI foot osteomyelitis 4th toe and septic arthritis 4th pip Also 3rd metatarsal head change - can't r/o osteomyelitis - Dr. Baron 08/14 4th toe amputation - f/u OR culture - MSSA -blood cx NGTD -mrsa screen positive -crp improving - discussed with surgery, felt the acute infected bone was removed and that more proximal 3rd toe changes are chronic, per my review of pathology, negative margin - surgery recommending 7 days antibiotics after surgery for soft tissue infection - reports on dressing change surrounding erythema resolved - will confirm plan with ID - messaged today - she tolerated cefazolin test dose but then had severe itching hours later, no rash - 08/18 continued cefazolin with close monitoring, she says she has tolerated keflex in the past - cont oxycodone for pain control in addition to acetaminophen Assessment & Plan (08/17/2024 5:21 PM EST): -Left 4th toe osteomyelitis -MRI foot osteomyelitis 4th toe and septic arthritis 4th pip Also 3rd metatarsal head change - can't r/o osteomyelitis - Dr. Baron 08/14 4th toe amputation - f/u OR culture - MSSA -blood cx NGTD -mrsa screen positive -crp improving - discussed with surgery, felt the acute infected bone was removed and that more proximal 3rd toe changes are chronic, pathology pending - surgery recommending 7 days antibiotics after surgery for soft tissue infection - reports on dressing change surrounding erythema resolved - will confirm plan with ID - tolerated cefazolin test dose - cont oxycodone for pain control in addition to acetaminophen Assessment & Plan (08/16/2024 4:23 PM EST): -Left 4th toe osteomyelitis -MRI foot osteomyelitis 4th toe and septic arthritis 4th pip Also 3rd metatarsal head change - can't r/o osteomyelitis - Dr. Baron 08/14 4th toe amputation - f/u OR culture - staph aureus awaiting sensitivities -cont on IV vanco and levaquin given pcn allergy ID following - may need cephalosporin test dose - ID following -blood cx NGTD -mrsa screen positive -crp improving - cont oxycodone for pain control in addition to acetaminophen Assessment & Plan (08/16/2024 11:24 AM EST): Tissue spec growing Staph aureus, lab working on distinguishing MSSA from MRSA. Vancomycin and Levaquin is reasonable for the moment. If MSSA, would plan for test dose of cefazolin then, if tolerated, change rx to IV cefazolin and stop vanco /levaquin. Dr Bliss to see Saturday. Will need to look at foot and see status of cellulits. Assessment & Plan (08/15/2024 4:43 PM EST): -Left 4th toe osteomyelitis -MRI foot osteomyelitis 4th toe and septic arthritis 4th pip Also 3rd metatarsal head change - can't r/o osteomyelitis - Dr. Baron 08/14 4th toe amputation - f/u OR culture - no growth so far -cont on IV vanco and levaquin given pcn allergy ID following - may need cephalosporin test dose - ID following -blood cx NGTD -mrsa screen positive -crp improving - cont oxycodone and morphine for pain control in addition to acetaminophen Assessment & Plan (08/15/2024 10:55 AM EST): Await culture data from OR. So far few WBC and NGSF. Vancomycin and Levaquin is reasonable for the moment. May need cephalosporin test dose on Saturday or , depending on what we find on cultures and choice of oral abt Assessment & Plan (08/14/2024 5:47 PM EST): -Left 4th toe osteomyelitis -MRI foot osteomyelitis 4th toe and septic arthritis 4th pip Also 3rd metatarsal head change - can't r/o osteomyelitis - Dr. Baron 08/14 4th toe amputation - f/u OR culture -cont on IV vanco and levaquin given pcn allergy ID following - may need cephalosporin test dose -blood cx NGTD -mrsa screen positive -Trend inflammatory markers - added oxycodone and morphine for pain control in addition to acetaminophen Assessment & Plan (08/14/2024 1:45 PM EST): The patient is having an amputation by Dr. Guido as we speak. We will see how wide the amputation will be. Will want to be sure that the margins are clean and no osteomyelitis was left behind. If that is true she will need only a relatively short course of antibiotics to treat the soft tissue infection. If there are areas of osteomyelitis left behind we would need to discuss a repeat procedure or consider prolonged antibiotics. Vancomycin and Levaquin is reasonable for the moment. I have asked Dr. Guido to take some cultures from the deep tissues. She does have a positive MRSA screen No associated orders from this encounter found during lookback period of 72 hours. Assessment & Plan (08/13/2024 8:58 PM EST): Physical exam and x-ray findings concerning for left fourth toe osteomyelitis. MRI has been performed and interpretation is pending. Patient will ultimately require amputation of the left fourth toe. Pending MRI interpretation we will determine if additional/further amputation is necessary. Appreciate internal medicine's care of the patient and agree with continuing antibiotics and awaiting culture data. Dr. Guido will evaluate the patient tomorrow. She should remain n.p.o. over night for plans for or tomorrow. The diagnosis and plan were discussed with the patiet. Assessment & Plan (08/13/2024 5:04 PM EST): -Left 4th toe is swollen with an open wound, xray shows osteomyelitis -Follow up MRI foot -Follow up surgery consult -Empirically NPO after midnight for possible amputation -Started on IV vanco and levaquin given pcn allergy -Follow up blood cx -Follow up mrsa screen -Trend inflammatory markers Class 2 obesity 02/05/2024 Assessment & Plan (07/31/2024 1:36 PM EDT): BMI 34-35 over past 6 months Latanya continues to put effort into healthy eating and staying active, she is concentrating more on strength training, she is unable to walk comfortably due to foot issues She has been trying to focus on efforts that will help with weight loss, we discussed adding in light intensity aerobic exercise such as stationary bike/recumbent bike We discussed GLP1ra therapy in light of Latanya's past bariatric surgery, potential side effects, she will think about this Assessment & Plan (05/07/2024 11:40 AM EDT): Continue diligent portion control. Limit concentrated sugars, saturated fats and calories in the diet. Keep well-hydrated. If unable to achieve expected goal consider formal dietary/nutritional support. Assessment & Plan (02/08/2024 10:00 PM EDT): Congratulations on 2 pounds weight loss from 238 in September 2023 down to 236 today. Continue diligent portion control. Limit concentrated sugars, saturated fats and calories in the diet. Keep well-hydrated. If unable to achieve expected goal consider formal dietary/nutritional support. Skin ulcer of toe of left foot with fat layer ex posed 10/11/2023 Assessment & Plan (10/14/2023 12:02 PM EST): Continue antibiotics exactly as prescribed in addition to changing dressings twice daily and follow-up with [facility] as scheduled early next week. I reminded her to call our office and schedule postponed Prolia injection as soon as wound is healed with the nurse. Medial epicondylitis of left elbow 03/21/2023 Assessment & Plan (05/07/2024 11:10 AM EDT): Avoid repetitive arm pulling, pushing, heavy lifting especially on outstretched arms. Use warm packs for 10-15 minutes followed by topical Arnica versus Biofreeze versus Voltaren gel. Examples of appropriate exercises with pictures and detailed instructions printed for home use today. Use medial elbow pad for extended activities. If symptoms do not improve or progress despite above measures may need to consider formal PT versus local steroid injection. Assessment & Plan (03/21/2023 3:04 PM EDT): Avoid repetitive arm pulling, pushing, heavy lifting especially on outstretched arms. Use warm packs for 10-15 minutes followed by topical Arnica versus Biofreeze versus Voltaren gel. Examples of appropriate exercises with pictures and detailed instructions printed for home use today. Use medial elbow pad for extended activities. If symptoms do not improve or progress despite above measures may need to consider formal PT versus local steroid injection. Onychomycosis 12/28/2022 Rheumatoid arthritis involvi ng multiple sites with positive rheumatoid factor 01/31/2022 Assessment & Plan (12/10/2024 9:31 AM EDT): methotrexate 15 mg on Sundays. She has leukovorin rx. Assessment & Plan (12/09/2024 1:34 PM EDT): Latanya has been taking her methotrexate 15 mg on Sundays. I will have to question her about her leucovorin rescue which is marked is not taking for clarification. Assessment & Plan (12/08/2024 12:11 PM EDT): Latanya has been taking her methotrexate 15 mg on Sundays. I will have to question her about her leucovorin rescue which is marked is not taking for clarification. Assessment & Plan (08/18/2024 5:46 PM EST): -Methotrexate on hold while treating infection Assessment & Plan (08/17/2024 5:21 PM EST): -Methotrexate on hold while treating infection Assessment & Plan (08/16/2024 4:23 PM EST): -Methotrexate on hold while treating infection Assessment & Plan (08/15/2024 4:43 PM EST): -Methotrexate on hold while treating infection Assessment & Plan (08/14/2024 5:47 PM EST): -Methotrexate on hold while treating infection Assessment & Plan (08/13/2024 5:04 PM EST): -Methotrexate on hold while treating infection Assessment & Plan (08/10/2024 12:16 PM EST): Clinically and laboratory barahona appears stable-carefully continue weekly subcutaneous methotrexate 15 mg every Saturday along with leucovorin 5 mg within 24 hours of weekly methotrexate injection. Joint protection, energy conservation. Avoid falls, injuries, overuse. Gentle, regular ROM, stretching and muscle strengthening exercises preceded by warm pack application. Get monitoring labs prior to next visit in 4 months-standing orders in the medical center. Call if problems or questions. Assessment & Plan (05/07/2024 11:10 AM EDT): Clinically and laboratory barahona appears stable-carefully continue weekly subcutaneous methotrexate 15 mg every Saturday along with leucovorin 5 mg within 24 hours of weekly methotrexate injection. Joint protection, energy conservation. Avoid falls, injuries, overuse. Gentle, regular ROM, stretching and muscle strengthening exercises preceded by warm pack application. Get monitoring labs today and prior to next visit in 3 months-standing orders in the medical center. Call if problems or questions. Assessment & Plan (02/08/2024 9:57 PM EDT): Clinically and laboratory barahona appears stable-carefully continue weekly subcutaneous methotrexate 15 mg every Saturday along with leucovorin 5 mg within 24 hours of weekly methotrexate injection. Joint protection, energy conservation. Avoid falls, injuries, overuse. Gentle, regular ROM, stretching and muscle strengthening exercises preceded by warm pack application. Get monitoring labs today and prior to next visit in 3 months-standing orders in the medical center. Call if problems or questions. Assessment & Plan (10/14/2023 11:59 AM EST): Hold weekly methotrexate until L 3rd toe infection healed. Then carefully continue weekly subcutaneous methotrexate 15 mg every Saturday along with leucovorin 5 mg within 24 hours of weekly methotrexate injection. Joint protection, energy conservation. Avoid falls, injuries, overuse. Gentle, regular ROM, stretching and muscle strengthening exercises preceded by warm pack application. Get monitoring labs today and prior to next visit in 2 months-standing orders in the medical center. Call if problems or questions. Assessment & Plan (03/21/2023 3:05 PM EDT): Carefully continue current weekly subcutaneous methotrexate 15 mg every Saturday along with leucovorin 5 mg within 24 hours of weekly methotrexate injection. Joint protection, energy conservation. Avoid falls, injuries, overuse. Gentle, regular ROM, stretching and muscle strengthening exercises preceded by warm pack application. Get monitoring labs today and prior to next visit in 5 months-standing orders in the medical center. Call if problems or questions. Assessment & Plan (05/11/2022 10:40 AM EDT): Carefully continue current weekly subcutaneous methotrexate 15 mg every Saturday along with leucovorin 5 mg within 24 hours of weekly methotrexate injection. Joint protection, energy conservation. Avoid falls, injuries, overuse. Gentle, regular ROM, stretching and muscle strengthening exercises preceded by warm pack application. Get monitoring labs prior to next visit in 3 months-standing orders in the medical center. Call if problems or questions. Assessment & Plan (02/13/2022 9:53 PM EDT): Carefully continue current weekly subcutaneous methotrexate 15 mg every Saturday along with leucovorin 5 mg within 24 hours of weekly methotrexate injection. Joint protection, energy conservation. Avoid falls, injuries, overuse. Gentle, regular ROM, stretching and muscle strengthening exercises preceded by warm pack application. Get monitoring labs prior to next visit in 3 months-standing orders in the medical center. Call if problems or questions. 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 Principles of sleep hygiene reviewed and strongly encouraged. Listen to relaxation tapes nightly and every time she wakes up. Alternatively she may listen to CALM or Sleep with me naseem from [employer] Class 1 obesity 01/31/2022 Assessment & Plan (01/24/2024 1:16 PM EDT): BMI 34-35 over past 6 months Latanya continues to put effort into healthy eating and staying active She has been trying to focus on efforts that will help with weight loss Encouraged to continue her efforts Assessment & Plan (10/14/2023 12:01 PM EST): Continue diligent portion control. Limit concentrated sugars, saturated fats and calories in the diet. Keep well-hydrated. If unable to achieve expected goal consider formal dietary/nutritional support. Assessment & Plan (03/21/2023 2:01 PM EDT): Continue diligent portion control. Limit concentrated sugars, saturated fats and calories in the diet. Keep well-hydrated. If unable to achieve expected goal consider formal dietary/nutritional support. Assessment & Plan (05/29/2022 11:14 AM EDT): Continue diligent portion control. Limit concentrated sugars, saturated fats and calories in the diet. Keep well-hydrated. If unable to achieve expected goal consider formal dietary/nutritional support. Assessment & Plan (01/31/2022 4:12 PM EDT): Portion control. Limit concentrated sugars, saturated fats and calories in the diet. Keep well-hydrated. If unable to achieve expected goal consider formal dietary/nutritional support. Tendinitis of left rotator cuff 01/31/2022 Assessment & Plan (02/13/2022 9:54 PM EDT): Use warm pack versus warm shower prior to gentle, regular exercise routine- examples of exercises with pictures and detailed instructions printed for home use. Avoid heavy lifting, repetitive pulling or pushing with shoulders. If not better or worse may need to consider formal PT and local steroid injection. Advice given about COVID-19 virus infection 12/2021 Assessment & Plan (02/13/2022 9:58 PM EDT): I reviewed with Latanya need for getting COVID-19 Pfizer booster vaccine dose by 02/15/2022. In case she would contract COVID-19 infection I educated her to call within the first 24-48 hours and request treatment with oral Paxlovid or monoclonal antibody infusion if not able to tolerate oral treatment. Bilateral hearing loss 09/14/2021 Assessment & Plan (10/01/2021 12:46 PM EST): Since she reports for performance of her hearing aids of 3 years I have advised her to consider checkup with senior cobol developer and ENT to consider upgrade Vitamin D deficiency 09/14/2021 Assessment & Plan (08/10/2024 12:15 PM EST): Continue proper supplementation as prescribed to keep serum level within optimal range: 40-45 ng/ml. Assessment & Plan (02/05/2024 12:05 PM EDT): Continue proper supplementation as prescribed to keep serum level within optimal range: 40-45 ng/ml. Assessment & Plan (10/14/2023 12:00 PM EST): Continue proper supplementation as prescribed to keep serum level within optimal range: 40-45 ng/ml. Assessment & Plan (07/21/2023 4:08 PM EDT): Most recent vit D level reviewed, this is in good range Continues on vit D supplementation Assessment & Plan (03/21/2023 3:07 PM EDT): Continue proper supplementation as prescribed to keep serum level within optimal range: 40-45 ng/ml. Assessment & Plan (05/11/2022 10:47 AM EDT): Continue proper supplementation as prescribed to keep 0 level within optimal range: 40-45 ng/ml. Assessment & Plan (01/31/2022 4:14 PM EDT): Continue proper supplementation as prescribed to keep 0 level within optimal range: 40-45 ng/ml. Assessment & Plan (10/01/2021 12:40 PM EST): Continue proper supplementation as prescribed to keep 0 level within optimal range: 40-45 ng/ml. Aspirin long-term use 09/14/2021 Assessment & Plan (08/10/2024 11:44 AM EST): Avoid falls, injuries and cuts. Monitor for excessive bruising and bleeding. Assessment & Plan (05/07/2024 11:13 AM EDT): Avoid falls, injuries and cuts. Monitor for excessive bruising and bleeding. Assessment & Plan (02/05/2024 12:05 PM EDT): Avoid falls, injuries and cuts. Monitor for excessive bruising and bleeding. Assessment & Plan (10/14/2023 12:00 PM EST): Avoid falls, injuries and cuts. Monitor for excessive bruising and bleeding. Assessment & Plan (05/11/2022 10:46 AM EDT): Avoid falls, injuries and cuts. Monitor for excessive bruising and bleeding. Assessment & Plan (01/31/2022 4:11 PM EDT): Avoid falls, injuries and cuts. Monitor for excessive bruising and bleeding. Assessment & Plan (10/01/2021 12:49 PM EST): Avoid falls, injuries and cuts. Monitor for excessive bruising and bleeding. Encounter for methotrexate monitoring 09/14/2021 Assessment & Plan (08/10/2024 11:42 AM EST): Continue weekly subcutaneous injections as prescribed. Monitor for mucosal ulcerations, breathing difficulty, chest pain, coughing, abdominal pain, diarrhea, skin rashes etc. Return for monitoring labs at least every 3 months. Hold methotrexate whenever running fever, feeling sick or taking antibiotics. Complete entire course of antibiotic and wait at least 48 hours after the last dose of antibiotic before restarting its usual weekly schedule. Refrain from drinking alcohol while taking methotrexate. Inform any new JOSE GALE DIGITAL ACCOUNT DIRECTOR about chronic immunosuppression with methotrexate particularly in emergency situations. Assessment & Plan (05/07/2024 11:13 AM EDT): Continue weekly subcutaneous injections as prescribed. Monitor for mucosal ulcerations, breathing difficulty, chest pain, coughing, abdominal pain, diarrhea, skin rashes etc. Return for monitoring labs at least every 3 months. Hold methotrexate whenever running fever, feeling sick or taking antibiotics. Complete entire course of antibiotic and wait at least 48 hours after the last dose of antibiotic before restarting its usual weekly schedule. Refrain from drinking alcohol while taking methotrexate. Inform any new JOSE GALE DIGITAL ACCOUNT DIRECTOR about chronic immunosuppression with methotrexate particularly in emergency situations. Assessment & Plan (02/05/2024 12:05 PM EDT): Continue weekly subcutaneous injections as prescribed. Monitor for mucosal ulcerations, breathing difficulty, chest pain, coughing, abdominal pain, diarrhea, skin rashes etc. Return for monitoring labs at least every 3 months. Hold methotrexate whenever running fever, feeling sick or taking antibiotics. Complete entire course of antibiotic and wait at least 48 hours after the last dose of antibiotic before restarting its usual weekly schedule. Refrain from drinking alcohol while taking methotrexate. Inform any new JOSE GALE DIGITAL ACCOUNT DIRECTOR about chronic immunosuppression with methotrexate particularly in emergency situations. Assessment & Plan (03/21/2023 3:08 PM EDT): Continue weekly subcutaneous injections as prescribed. Monitor for mucosal ulcerations, breathing difficulty, chest pain, coughing, abdominal pain, diarrhea, skin rashes etc. Return for monitoring labs at least every 3 months. Hold methotrexate whenever running fever, feeling sick or taking antibiotics. Complete entire course of antibiotic and wait at least 48 hours after the last dose of antibiotic before restarting its usual weekly schedule. Refrain from drinking alcohol while taking methotrexate. Inform any new JOSE GALE DIGITAL ACCOUNT DIRECTOR about chronic immunosuppression with methotrexate particularly in emergency situations. Assessment & Plan (05/29/2022 11:18 AM EDT): Continue weekly subcutaneous injections as prescribed. Monitor for mucosal ulcerations, breathing difficulty, chest pain, coughing, abdominal pain, diarrhea, skin rashes etc. Return for monitoring labs at least every 3 months. Hold methotrexate whenever running fever, feeling sick or taking antibiotics. Complete entire course of antibiotic and wait at least 48 hours after the last dose of antibiotic before restarting its usual weekly schedule. Refrain from drinking alcohol while taking methotrexate. Inform any new JOSE GALE, DIGITAL ACCOUNT DIRECTOR about chronic immunosuppression with methotrexate particularly in emergency situations. Assessment & Plan (01/31/2022 4:13 PM EDT): Continue weekly subcutaneous injections as prescribed. Return for monitoring labs at least every 3 months. Hold methotrexate whenever running fever, feeling sick or taking antibiotics. Complete entire course of antibiotic and wait at least 48 hours after the last dose of antibiotic before restarting its usual weekly schedule. Refrain from drinking alcohol while taking methotrexate. Inform any new JOSE GALE, DIGITAL ACCOUNT DIRECTOR about chronic immunosuppression with methotrexate particularly in emergency situations. Assessment & Plan (10/01/2021 12:50 PM EST): Continue weekly subcutaneous injections as prescribed. Return for monitoring labs at least every 3 months. Hold methotrexate whenever running fever, feeling sick or taking antibiotics. Complete entire course of antibiotic and wait at least 48 hours after the last dose of antibiotic before restarting its usual weekly schedule. Refrain from drinking alcohol while taking methotrexate. Inform any new JOSE GALE, DIGITAL ACCOUNT DIRECTOR about chronic immunosuppression with methotrexate particularly in emergency situations. Encounter for monitoring denosumab therapy 09/14 Assessment & Plan (08/10/2024 11:43 AM EST): I reminded Latanya need for monitoring lab work within 30 days of each subcutaneous Prolia administration-standing orders in the medical center. She is encouraged to keep well-hydrated especially within the 48 hours from every 6 months subcutaneous Prolia administration. Assessment & Plan (05/07/2024 11:13 AM EDT): I reminded Latanya need for monitoring lab work within 30 days of each subcutaneous Prolia administration-standing orders in the medical center. She is encouraged to keep well-hydrated especially within the 48 hours from every 6 months subcutaneous Prolia administration. Assessment & Plan (02/05/2024 12:06 PM EDT): I reminded Latanya need for monitoring lab work within 30 days of each subcutaneous Prolia administration-standing orders in the medical center. She is encouraged to keep well-hydrated especially within the 48 hours from every 6 months subcutaneous Prolia administration. Assessment & Plan (03/21/2023 2:01 PM EDT): I reminded Latanya need for monitoring lab work within 30 days of each subcutaneous Prolia administration-standing orders in the medical center. She is encouraged to keep well-hydrated especially within the 48 hours from every 6 months subcutaneous Prolia administration. Assessment & Plan (05/11/2022 10:46 AM EDT): I reminded Latanya need for monitoring lab work within 30 days of each subcutaneous Prolia administration-standing orders in the medical center. She is encouraged to keep well-hydrated especially within the 48 hours from every 6 months subcutaneous Prolia administration. Assessment & Plan (01/31/2022 4:13 PM EDT): I reminded Latanya need for monitoring lab work within 30 days of each subcutaneous Prolia administration-standing orders in the medical center. She is encouraged to keep well-hydrated especially within the 48 hours from every 6 months subcutaneous Prolia administration. Assessment & Plan (10/01/2021 12:51 PM EST): I reminded Latanya need for monitoring lab work within 30 days of each subcutaneous Prolia administration-standing orders in the medical center. She is encouraged to keep well-hydrated especially within the 48 hours from every 6 months subcutaneous Prolia administration. Age-related osteoporosis wit hout current pathological fracture 11/14/2020 Assessment & Plan (08/10/2024 12:09 PM EST): She had interval BMD on 11/08/2023 at [facility] that revealed: An interval increase in bone mineral density of 5% in the lumbar spine and 3.8% in the left forearm with decrease in density of 5.5% in the right total hip relative to previous study from 09/26/2020. She continues proper calcium vitamin D supplementation, daily weightbearing exercises, fall and fracture prevention strategies in addition to every 6 months subcutaneous Prolia-next dose due on 08/10/2024 Procedure: After an informed oral consent, under sterile conditions I have injected 60 mg Prolia subcutaneously into Left arm uneventfully. Details of post-procedure care were explained to the patient in the office and given in writing. PATIENT SUPPLIED Provider: Portia Kiser MD Patient: Latanya Arthur : 1950 Date: 08/10/2024 Assessment & Plan (05/07/2024 11:40 AM EDT): She had interval BMD on 11/08/2023 at [facility] that revealed: An interval increase in bone mineral density of 5% in the lumbar spine and 3.8% in the left forearm with decrease in density of 5.5% in the right total hip relative to previous study from 09/26/2020. She continues proper calcium vitamin D supplementation, daily weightbearing exercises, fall and fracture prevention strategies in addition to every 6 months subcutaneous Prolia-next dose due on 08/10/2024 Assessment & Plan (02/05/2024 12:05 PM EDT): Most recent bone density from September 26, 2020 revealed ongoing left forearm osteoporosis with mild interval decrease comparing to study from 2018 therefore she is getting subcutaneous Prolia injection every 6 months afterwards in addition to proper calcium and vitamin D supplementation, daily weightbearing exercises and fall and fracture prevention strategies. She is scheduled for interval BMD on 11/08/2023. She is due for every 6 months subcutaneous Prolia today but it has to be postponed until L 3rd toe infection is healed. I have instructed her to call the office and request appointment with the nurse as soon as L 3rd toe infection is healed. Documentation to prescribe Prolia for postmenopausal osteoporosis at high risk for fracture should include but is not limited to the following: Are supplemental Calcium & Vitamin D prescribed?: (Required) Y Patient's Age and Sex: 73 F Menopausal Status: postmenopausal Is there documentation supporting the diagnosis of Osteoporosis?: Y Previous treatment of Osteoporosis: N Agents used: Outcomes: Adverse reactions (if any): History of previous fracture(s): N Type of fracture: Cause: Time since occurrence: Risk factors for future fracture, including preventive measures: severe GERD REQUIREING DAILY OMEPRAZOLE Injected 60 mg Prolia s.c into Left arm OFFICE SUPPLY Assessment & Plan (10/14/2023 12:07 PM EST): Most recent bone density from September 26, 2020 revealed ongoing left forearm osteoporosis with mild interval decrease comparing to study from 2018 therefore she is getting subcutaneous Prolia injection every 6 months afterwards in addition to proper calcium and vitamin D supplementation, daily weightbearing exercises and fall and fracture prevention strategies. She is scheduled for interval BMD on 11/08/2023. She is due for every 6 months subcutaneous Prolia today but it has to be postponed until L 3rd toe infection is healed. I have instructed her to call the office and request appointment with the nurse as soon as L 3rd toe infection is healed. Assessment & Plan (03/21/2023 3:07 PM EDT): Most recent bone density from September 26, 2020 revealed ongoing left forearm osteoporosis with mild interval decrease comparing to study from 2018 therefore she is getting subcutaneous Prolia injection every 6 months afterwards in addition to proper calcium and vitamin D supplementation, daily weightbearing exercises and fall and fracture prevention strategies. She is due for every 6 months subcutaneous Prolia on 04/05/2023. Assessment & Plan (05/29/2022 11:17 AM EDT): Most recent bone density from September 26, 2020 revealed ongoing left forearm osteoporosis with mild interval decrease comparing to study from 2018 therefore she is getting subcutaneous Prolia injection today and every 6 months afterwards in addition to proper calcium and vitamin D supplementation, daily weightbearing exercises and fall and fracture prevention strategies. She is due for every 6 months subcutaneous Prolia after 09/28/2022 Assessment & Plan (02/13/2022 9:50 PM EDT): Most recent bone density from September 26, 2020 revealed ongoing left forearm osteoporosis with mild interval decrease comparing to study from 2018 therefore she is getting subcutaneous Prolia injection today and every 6 months afterwards in addition to proper calcium and vitamin D supplementation, daily weightbearing exercises and fall and fracture prevention strategies. She is due for every 6 months subcutaneous Prolia after 03/15/2022 Assessment & Plan (10/01/2021 12:45 PM EST): Most recent bone density from September 26, 2020 revealed ongoing left forearm osteoporosis with mild interval decrease comparing to study from 2018 therefore she is getting subcutaneous Prolia injection today and every 6 months afterwards in addition to proper calcium and vitamin D supplementation, daily weightbearing exercises and fall and fracture prevention strategies. Procedure: After an informed oral consent, under sterile conditions I have injected 60 mg Prolia subcutaneously into her left arm uneventfully. OFFICE SUPPLY Assessment & Plan (06/07/2021 4:53 PM EDT): Recent bone densitometry reviewed. As patient is on methotrexate has rheumatoid arthritis and it is an increased risk for fall and fracture, we will restart her Prolia giving the first injection with her next rheumatology appointment in August. Results for orders placed or performed during the hospital encounter of 09/26/20 (from the past 38802 hour(s)) DXA Monitoring Narrative COMPARISON: 08/01/2018. BONE DENSITY FINDINGS: History: This is a 69-year-old postmenopausal female. Evaluation of the lumbar spine, left forearm and hips was performed and felt to be technically adequate. Total bone mineral density in the L1-L4 vertebral bodies was calculated at 0.985 gm/cm2 with a T-score of -0.6 falling within the WHO classification of normal. Z-score of 1.4.6.2% increase in bone density which is statistically significant. Total bone mineral density in the right hip was calculated at 0.894 gm/cm2 with a T-score of -0.4 falling within the WHO classification of normal. Z-score of 1.0. Total bone mineral density in the left hip was calculated at 0.918 gm/cm2 with a T-score of -0.2 falling within the WHO classification of normal. Z-score of 1.2. 3.5% increase in bone density which is statistically significant. Total bone mineral density in the left forearm was calculated at 0.379 gm/cm2 with a T-score of -3.6 falling within the WHO classification of osteoporosis. Z-score of -1.7. 3.4 % decrease in bone density which is statistically significant. Impression 1.Normal lumbar spine and bilateral hip bone density with mild increase in bone density in the lumbar spine and left hip since 2018. 2.Continued left forearm osteoporosis with mild interval decrease in bone density. Results for orders placed or performed during the hospital encounter of 08/01/18 (from the past 65133 hour(s)) DXA Screening Narrative This is a 67-year-old postmenopausal patient with 1 inch of height loss reported.. Evaluation of the lumbar spine and both hips is obtained and appears appropriate. The lumbar spine from L1 through L4 discloses a total bone mineral density of 0.928 g/cm2 with a T-score of -1.1. This is in the osteopenia range. The right hip has a total bone mineral density of 0.894 g/cm2 with a T-score of -0.4 this is in the normal range. The left hip has a total bone mineral density of 0.887 g/cm2 for a T-score of - 0.4. This is in the normal range. The left forearm has a total bone mineral density of 0.392 g/cm2 for a T-score of -3.4. This is in the osteoporosis range. Impression Osteoporosis evident in the left forearm. S/S: Estrogen deficiency, bone density screening, height loss, osteoporosis POS - [id number] Assessment & Plan (11/14/2020 10:26 AM EST): Reviewed bone densitometry indicating worsening osteoporosis in the forearm. Stabilization in the hips. No change in the spine though falsely elevated due to osteophytosis. Full discussion today concerning risks and benefits of continued use of Prolia versus risk of hip fracture and [address] hip fracture[address] D[address] correct way to exercise daily with a low i.e. 2 to 5 pound hand weights to increase strength in the distal forearm. Fall and fracture prevention strategies and continuance of vitamin D3 every day. Next Prolia in January. Results for orders placed or performed during the hospital encounter of 09/26/20 (from the past 38033 hour(s)) DXA Monitoring Narrative COMPARISON: 08/01/2018. BONE DENSITY FINDINGS: History: This is a 69-year-old postmenopausal female. Evaluation of the lumbar spine, left forearm and hips was performed and felt to be technically adequate. Total bone mineral density in the L1-L4 vertebral bodies was calculated at 0.985 gm/cm2 with a T-score of -0.6 falling within the WHO classification of normal. Z-score of 1.4.6.2% increase in bone density which is statistically significant. Total bone mineral density in the right hip was calculated at 0.894 gm/cm2 with a T-score of -0.4 falling within the WHO classification of normal. Z-score of 1.0. Total bone mineral density in the left hip was calculated at 0.918 gm/cm2 with a T-score of -0.2 falling within the WHO classification of normal. Z-score of 1.2. 3.5% increase in bone density which is statistically significant. Total bone mineral density in the left forearm was calculated at 0.379 gm/cm2 with a T-score of -3.6 falling within the WHO classification of osteoporosis. Z-score of -1.7. 3.4 % decrease in bone density which is statistically significant. Impression 1.Normal lumbar spine and bilateral hip bone density with mild increase in bone density in the lumbar spine and left hip since 2018. 2.Continued left forearm osteoporosis with mild interval decrease in bone density. Results for orders placed or performed during the hospital encounter of 08/01/18 (from the past 74049 hour(s)) DXA Screening Narrative This is a 67-year-old postmenopausal patient with 1 inch of height loss reported.. Evaluation of the lumbar spine and both hips is obtained and appears appropriate. The lumbar spine from L1 through L4 discloses a total bone mineral density of 0.928 g/cm2 with a T-score of -1.1. This is in the osteopenia range. The right hip has a total bone mineral density of 0.894 g/cm2 with a T-score of -0.4 this is in the normal range. The left hip has a total bone mineral density of 0.887 g/cm2 for a T-score of - 0.4. This is in the normal range. The left forearm has a total bone mineral density of 0.392 g/cm2 for a T-score of -3.4. This is in the osteoporosis range. Impression Osteoporosis evident in the left forearm. S/S: Estrogen deficiency, bone density screening, height loss, osteoporosis POS - [id number] Metatarsal fracture, pathologic, right, sequela 01/07/2019 Assessment & Plan (06/07/2021 4:54 PM EDT): Another reason to continue pharmacologic intervention with Prolia for this patient who has low bone mass and a fracture and a history of severe GERD which is currently active and really contradicts her taking oral bisphosphonates because of the higher risk of potential esophageal erosions. Assessment & Plan (03/06/2021 4:42 PM EDT): Patient has severe osteoporosis with low bone mass on bone density and a metatarsal stress fracture. We will remeasure her 25 hydroxy vitamin D level though it has been therapeutic in the past. We discussed fall and fracture prevention strategies and she will receive another Prolia injection today. Results for orders placed or performed during the hospital encounter of 09/26/20 (from the past 80033 hour(s)) DXA Monitoring Narrative COMPARISON: 08/01/2018. BONE DENSITY FINDINGS: History: This is a 69-year-old postmenopausal female. Evaluation of the lumbar spine, left forearm and hips was performed and felt to be technically adequate. Total bone mineral density in the L1-L4 vertebral bodies was calculated at 0.985 gm/cm2 with a T-score of -0.6 falling within the WHO classification of normal. Z-score of 1.4.6.2% increase in bone density which is statistically significant. Total bone mineral density in the right hip was calculated at 0.894 gm/cm2 with a T-score of -0.4 falling within the WHO classification of normal. Z-score of 1.0. Total bone mineral density in the left hip was calculated at 0.918 gm/cm2 with a T-score of -0.2 falling within the WHO classification of normal. Z-score of 1.2. 3.5% increase in bone density which is statistically significant. Total bone mineral density in the left forearm was calculated at 0.379 gm/cm2 with a T-score of -3.6 falling within the WHO classification of osteoporosis. Z-score of -1.7. 3.4 % decrease in bone density which is statistically significant. Impression 1.Normal lumbar spine and bilateral hip bone density with mild increase in bone density in the lumbar spine and left hip since 2018. 2.Continued left forearm osteoporosis with mild interval decrease in bone density. Results for orders placed or performed during the hospital encounter of 08/01/18 (from the past 75718 hour(s)) DXA Screening Narrative This is a 67-year-old postmenopausal patient with 1 inch of height loss reported.. Evaluation of the lumbar spine and both hips is obtained and appears appropriate. The lumbar spine from L1 through L4 discloses a total bone mineral density of 0.928 g/cm2 with a T-score of -1.1. This is in the osteopenia range. The right hip has a total bone mineral density of 0.894 g/cm2 with a T-score of -0.4 this is in the normal range. The left hip has a total bone mineral density of 0.887 g/cm2 for a T-score of - 0.4. This is in the normal range. The left forearm has a total bone mineral density of 0.392 g/cm2 for a T-score of -3.4. This is in the osteoporosis range. Impression Osteoporosis evident in the left forearm. S/S: Estrogen deficiency, bone density screening, height loss, osteoporosis POS - [id number] Assessment & Plan (04/18/2020 11:17 AM EDT): With her osteopenia and metatarsal fractures and her ongoing inflammatory state, she will continue on vitamin D3 to maintain a therapeutic 25-hydroxy vitamin D level and she will continue on Prolia injections until we are able to do her bone density next year and assess its efficacy. She will have another Prolia injection on her next visit in July. All questions were answered. Fall and fracture prevention strategies were discussed. 28 minutes spent in [id number] conversation with this patient coordinating my care with out of her primary care physician. Going over all of her medications and answering all of her questions. Assessment & Plan (08/03/2019 5:58 PM EST): Slowly healing with the help of a bone stimulator which she will continue to use. 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 Reviewed Dr. Marquez's notes. Patient is having pain from the area of fracture. 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 Marquez's plans to treat this conservatively for now. We will hold up in the option of surgical fixation for now. She had her last Prolia injection in December and will have another one in mid June. Fall and fracture prevention strategies were discussed and she will remain on vitamin D3 at 1000 units daily which gives her a therapeutic 25 hydroxy vitamin D level. Assessment & Plan (01/07/2019 1:04 PM EDT): She will continue to be managed by orthopedic surgery. She has had an Unna boot. All and fracture prevention strategies discussed. S/P right colectomy 11/05/2018 GERD (gastroesophageal reflux disease) 9 Assessment & Plan (08/10/2024 12:18 PM EST): Avoid late, large, spicy meals. Keep headboard elevated at 45 angle for nighttime. Carefully continue omeprazole 20 mg daily Assessment & Plan (02/05/2024 11:53 AM EDT): Avoid late, large, spicy meals. Keep headboard elevated at 45 angle for nighttime. Assessment & Plan (10/01/2021 12:48 PM EST): Avoid late, large, spicy meals. Keep headboard elevated at 45 angle for nighttime. History of gastric bypass 10/15/2018 Assessment & Plan (11/10/2020 6:37 PM EST): Receiving Vit B12 injections monthly, no recent Vit B12 levels available for review on file Acute nasopharyngitis 07/14/2018 History of retinal hemorrhage 10/08/2017 Acquired hypothyroidism 08/09/2017 Assessment & Plan (02/05/2025 1:43 PM EDT): Most recent TSH reviewed, this was slightly above target, but fT4 is in target range Continues on LT4 therapy Clinically euthyroid Assessment & Plan (07/31/2024 1:34 PM EDT): Most recent TSH reviewed, this is slightly above target, but fT4 is in target range Continues on LT4 therapy Clinically euthyroid Assessment & Plan (01/24/2024 1:08 PM EDT): Most recent TSH from last August reviewed, this is in target range Continues on LT4 therapy Clinically euthyroid Assessment & Plan (07/21/2023 4:06 PM EDT): Most recent TSH reviewed, this is in target range Continues on LT4 therapy Clinically euthyroid Assessment & Plan (05/28/2022 3:38 PM EDT): Most recent TSH reviewed Continues on LT4 therapy Clinically euthyroid Assessment & Plan (11/09/2021 4:26 PM EST): Most recent TSH reviewed Continues on LT4 therapy Clinically euthyroid Assessment & Plan (05/08/2021 1:07 PM EDT): Most recent TSH reviewed Continues on LT4 therapy Clinically euthyroid Assessment & Plan (11/10/2020 3:45 PM EST): Most recent TSH reviewed Continues on LT4 therapy Clinically euthyroid Assessment & Plan (02/20/2018 12:37 PM EDT): Clinically euthyroid Has routine labs ordered and will get these done soon Assessment & Plan (11/15/2017 12:34 PM EST): Most recent TFTs reviewed from March 2017, normal TSH on current L-thyrox dose Remains clinically euthyroid Assessment & Plan (08/15/2017 1:01 PM EST): Clinically euthyroid Routine labs with TFTs reviewed from March 2017, TSH normal Status post bariatric surgery 08/09/2017 Assessment & Plan (10/01/2021 12:48 PM EST): She bought access to [facility] 8-week program followed by 6 monthly sessions to keep the weight loss at her optimum. 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 Her last vitamin D level which I reviewed with her was only 27. Since that time she has started 50,000 units of vitamin D weekly in addition to her vitamin D3 at 4000 units daily. Another vitamin D level will be done in [address] months[address] Insulin pump in place 08/09/2017 Overview (07/31/2024): Upgraded to [employer] 780G in 2023 Assessment & Plan (02/05/2025 1:49 PM EDT): We did not adjust insulin pump settings today, we did discuss adjusting the lower 9pm basal rate an hour or two earlier to reduce risk for lows overnight, Latanya is encouraged to give this a try to see if this is helpful to reduce need for evening snacks Tasneem continues to do well on mostly basal only delivery via insulin pump, she requires bolus insulin for some meals and manages this appropriately, she has had some variability and is also interested in weight loss both of which could be helped by GLP1ra therapy however she already struggles with a low appetite so this may not be the best therapy for her Latanya has not responded well to injected daily insulin therapy in the past, she continues to have an excellent response to insulin pump therapy Current insulin pump settings: Time Basal Rates? Time ICR Time ISF Time Target IOB 12am 0.50u/hr 12am 20 12am 78 12am 100mg/dl 4 hrs 3am 0.80 6am 0.90 9pm 0.625 Total: 18.55 Assessment & Plan (12/10/2024 9:31 AM EDT): follows with Dr. Helm.last seen in October. continue insulin pump Dexcom. Assessment & Plan (12/09/2024 1:34 PM EDT): Latanya follows with Dr. Helm. She was last seen in October. She should continue her insulin pump throughout the hospital stay. She has a Dexcom scanner that we can use for monitoring control. Assessment & Plan (12/08/2024 12:11 PM EDT): Latanya follows with Dr. Helm. She was last seen in October. She should continue her insulin pump throughout the hospital stay. She has a Dexcom scanner that we can use for monitoring control. Ideally this will remain intact during the operation later today. Assessment & Plan (08/10/2024 12:17 PM EST): Continue close monitoring as instructed by her cable maintainer and diabetic nurse educator. She has a scheduled follow-up on -11/03/2024. Assessment & Plan (07/31/2024 1:39 PM EDT): We adjusted insulin pump settings as noted below today, the modest basal rate adjustment should help stabilize afternoon/evening patterns Tasneem continues to do well on mostly basal only delivery via insulin pump, she requires bolus insulin for some meals and manages this appropriately, she has had much variability which could be helped by GLP1ra therapy which we discussed today Latanya has not responded well to injected daily insulin therapy in the past, she has had an excellent response to insulin pump therapy New insulin pump settings: Time Basal Rates? Time ICR Time ISF Time Target IOB 12am 0.50u/hr 12am 20 12am 78 12am 100mg/dl 4 hrs 3am 0.80 6am 0.90 9pm 0.725 Total: 19.75u/day Assessment & Plan (05/07/2024 11:30 AM EDT): Continue close monitoring as instructed by her cable maintainer and diabetic nurse educator. She has a scheduled follow-up on Saturday-05/11/2024. Assessment & Plan (02/05/2024 11:52 AM EDT): Continue close monitoring as instructed by her cable maintainer and diabetic nurse educator. Assessment & Plan (01/24/2024 1:11 PM EDT): We did not adjust insulin pump settings today Tasneem continues to do well on mostly basal only delivery via insulin pump, she requires bolus insulin for some meals and manages this appropriately, we discussed experimenting with dosing for common meals which produce elevated readings to assess what is needed for these Latanya has not responded well to injected daily insulin therapy in the past, she has had an excellent response to insulin pump therapy Current insulin pump setting Time Basal Rates? Time ICR Time ISF Time Target IOB 12am 0.625u/hr 12am 20 12am 78 12am 100mg/dl 4 hrs 3am 1.00 6am 1.05 9pm 0.725 Assessment & Plan (10/14/2023 11:59 AM EST): Continue close monitoring as instructed by her cable maintainer and diabetic nurse educator. Assessment & Plan (07/21/2023 4:12 PM EDT): No adjustments made to insulin pump settings today Tasneem continues to do well on basal only delivery via insulin pump, she has not responded well to injected daily primarily basal only insulin therapy in the past, Latanya tends only to bolus for very high carb items and based on her patterns she is encouraged to continue this Current insulin pump setting Time Basal Rates? Time ICR Time ISF Time Target IOB 12am 0.700 u/hr 12am 20 12am 78 12am 100mg/dl 4 hrs 6am 1.05 9pm 0.725 Assessment & Plan (12/17/2022 2:26 PM EDT): No adjustments made to her pump today. Tasneem is doing well on a lower basal rate from 12am to 6am. Latanya tends only to bolus for very high carb items such as cake which works well for her at this time. Current insulin pump setting Time Basal Rates? Time ICR Time ISF Time Target IOB 12am 0.700 u/hr 12am 20 12am 78 12am 100mg/dl 4 hrs 6am 1.05 9pm 0.725 Assessment & Plan (05/29/2022 11:13 AM EDT): Continue close monitoring as instructed by her cable maintainer and diabetic nurse educator. Assessment & Plan (05/28/2022 3:45 PM EDT): No adjustments made to her pump today. Decreased basal rate from 9pm to 6am last visit improved frequency of lows to <4% from 9%. Encouraged her to experiment further as needed if her low sugars were to increase in frequency or severity again. Latanya tends only to bolus for very high carb items such as cake which works well for her at this time. Current insulin pump setting Time Basal Rates? Time ICR Time ISF Time Target IOB 12am 0.725 u/hr 12am 20 12am 78 12am 100mg/dl 4 hrs 6am 1.05 9pm 0.725 Assessment & Plan (01/31/2022 4:13 PM EDT): Carefully continue close follow-up with treating cable maintainer-Dr. Mariza Helm as scheduled. Assessment & Plan (11/09/2021 4:26 PM EST): Current insulin pump setting Time Basal Rates? Time ICR Time ISF Time Target IOB 12am 0.775 u/hr 12am 20 12am 78 12am 100mg/dl 4 hrs 6am 1.05 9pp 0.775 No changes made to current insulin pump settings but Latanya is advised to consider reducing her 9pm and 12am basal rates to 0.725u/hr in order to reduce risk of lows and reduce CGM low alerts overnight We discussed the soon to be available Dexcom G7 Assessment & Plan (10/01/2021 12:40 PM EST): Carefully continue close follow-up with treating cable maintainer-Dr. Mariza Helm as scheduled. Assessment & Plan (05/08/2021 1:08 PM EDT): Current insulin pump setting Time Basal Rates? Time ICR Time ISF Time Target IOB 12am 0.775 u/hr 12am 20 12am 78 12am 100mg/dl 4 hrs 6a 1.05 9p 0.775 No changes made to current insulin pump settings We discussed tubeless, waterproof pump option, the Omnipod, given information on this Assessment & Plan (11/10/2020 3:44 PM EST): Current insulin pump setting Time Basal Rates? Time ICR Time ISF Time Target IOB 12am 0.775 u/hr 12am 20 12am 78 12am 100mg/dl 4 hrs 6a 1.05 9p 0.775 No changes made to current insulin pump settings Assessment & Plan (02/01/2020 10:58 AM EDT): We did not adjust insulin pump settings today Basal rate settings are keeping blood sugars in good control Not using bolus wizard for meals Assessment & Plan (07/31/2019 9:50 PM EDT): We did not adjust insulin pump settings today Basal rate settings are keeping blood sugars in good control Not using bolus wizard for meals Assessment & Plan (02/02/2019 9:27 AM EDT): Doing well on current insulin pump settings, we did not make any adjustments to these today Assessment & Plan (08/04/2018 1:11 PM EST): No changes made to basal rates Not using bolus wizard features or meal boluses Assessment & Plan (02/20/2018 12:40 PM EDT): No changes made to current insulin pump settings Assessment & Plan (11/15/2017 12:35 PM EST): No changes made in current insulin pump settings Mild intermittent asthma without complication Assessment & Plan (12/10/2024 9:31 AM EDT): no history of recent asthma exacerbations. only taking Singulair daily. She will use albuterol and Breo both as needed Assessment & Plan (12/09/2024 1:34 PM EDT): Latanya offers no history of recent asthma exacerbations. At this point she is only taking Singulair daily. She will use albuterol and Breo both as needed when she is feeling an exacerbation. Assessment & Plan (12/08/2024 12:11 PM EDT): Latanya offers no history of recent asthma exacerbations. At this point she is only taking Singulair daily. She will use albuterol and Breo both as needed when she is feeling an exacerbation. Assessment & Plan (08/18/2024 5:46 PM EST): -Currently no sob or wheezing -Continue prn albuterol -Breo ellipta nonformulary, switch to advair while hospitalized Assessment & Plan (08/17/2024 5:21 PM EST): -Currently no sob or wheezing -Continue prn albuterol -Breo ellipta nonformulary, switch to advair while hospitalized Assessment & Plan (08/16/2024 4:23 PM EST): -Currently no sob or wheezing -Continue prn albuterol -Breo ellipta nonformulary, switch to advair while hospitalized Assessment & Plan (08/15/2024 4:43 PM EST): -Currently no sob or wheezing -Continue prn albuterol -Breo ellipta nonformulary, switch to advair while hospitalized Assessment & Plan (08/14/2024 5:47 PM EST): -Currently no sob or wheezing -Continue prn albuterol -Breo ellipta nonformulary, switch to advair while hospitalized Assessment & Plan (08/13/2024 5:04 PM EST): -Currently no sob or wheezing -Continue prn albuterol -Breo ellipta nonformulary, switch to advair while hospitalized Assessment & Plan (01/07/2018 2:46 PM EDT): This has been stable on medication. She has had no intercurrent infections or flulike illnesses and did have a flu vaccine this year but did not have a pneumonia vaccine. Primary osteoarthritis of right foot 08/09/2017 Assessment & Plan (05/29/2022 11:16 AM EDT): She is a complex arthritis stemming from underlying rheumatoid arthritis that accelerated secondary to osteoarthritis with tarsonavicular joints, MTP joints complicated by calluses and hammertoes for which she requires custom made shoe wear and regular podiatry checkup due to diabetes related foot neuropathy. Assessment & Plan (06/03/2019 8:56 AM EDT): Patient has painful to arthritis of the right tarsonavicular and secondary osteoarthritis secondary to her rheumatoid disease along the lateral aspect of the right ankle joint. Restarting methotrexate at 15 mg weekly will resolve some of this pain as well obtaining appropriate custom-made shoe wear which I strongly recommended. Assessment & Plan (04/15/2018 4:51 PM EDT): Stable and mildly symptomatic forefoot and tarsonavicular osteoarthritis and she'll be treated with localized warmth as well as well fitting supportive shoes with good shock absorption. Assessment & Plan (10/08/2017 3:12 PM EST): She does have extensive secondary osteoarthritis of the right tarsonavicular and persistent synovitis of the right ankle. Well fitting supportive shoes with good shock absorption and plenty of room in the toe box to accommodate her osteophytes was recommended. Type 1 diabetes mellitus with diabetic neuropath y 08/09/2017 Overview (11/15/2017): DIABETES HISTORY Diagnosis - type 1 diabetes, dx age 39 Treatment - insulin pump therapy since 2006 Assessment & Plan (02/05/2025 1:52 PM EDT): We discussed consideration for a modest adjustment to evening basal rate setting as noted, this would address the lower readings that Latanya experiences overnight at times, she has done well with a lower overall basal rate during the day, Latanya continues on mostly basal infusion with mealtime bolus delivery for higher carb options, this has generally worked very well for her and her control remains excellent Recent health issues have posed some inconsistencies in glucose patterns mostly due to impact on activity, Latanya has managed this well Latanya benefits from diabetic shoes as she keeps active, this allows her to maintain foot comfort and provides appropriate support particularly now as she is post op from another toe amputation Latanya did not tolerate basal insulin by injection in the past and has had excellent and stable control on insulin pump therapy Using CGM consistently Stable DPN and retinopathy symptoms, up to date on routine foot and eye care; continues with foot issues which affect activity and may need foot surgery Encouraged to continue healthy lifestyle Encouraged to contact us with any concerns or question, she will return for follow up in 3 months Assessment & Plan (08/18/2024 5:46 PM EST): -Patient may continue to use her insulin pump -Monitor POCT and record in epic -recent hba1c 5.9 - blood glucose readings controlled Assessment & Plan (08/17/2024 5:21 PM EST): -Patient may continue to use her insulin pump -Monitor POCT and record in epic -recent hba1c 5.9 - blood glucose readings controlled Assessment & Plan (08/16/2024 4:23 PM EST): -Patient may continue to use her insulin pump -Monitor POCT and record in epic -recent hba1c 5.9 - blood glucose readings controlled Assessment & Plan (08/15/2024 4:43 PM EST): -Patient may continue to use her insulin pump -Monitor POCT and record in epic -recent hba1c 5.9 - blood glucose readings controlled Assessment & Plan (08/14/2024 5:47 PM EST): -Patient may continue to use her insulin pump -Monitor POCT and record in epic -recent hba1c 5.9 Assessment & Plan (08/13/2024 5:04 PM EST): -Patient may continue to use her insulin pump -Monitor POC -recent hba1c 5.9 Assessment & Plan (07/31/2024 2:16 PM EDT): We discussed an adjustment to insulin pump settings today, specifically lowering the daytime basal rate which should help reduce risk for hypoglycemia, Latanya continues on mostly basal infusion with mealtime bolus delivery for higher carb options, this has generally worked very well for her and her control remains excellent We discussed some considerations for higher carb meal dosing Recent stressor have posed some inconsistencies in glucose patterns, Latanya has managed this well Latanay benefits from diabetic shoes as she keeps active, this allows her to maintain foot comfort and provides appropriate support She did not tolerate basal insulin by injection in the past and has has excellent and stable control on insulin pump therapy Using CGM consistently Stable DPN and retinopathy symptoms, up to date on routine foot and eye care; continues with foot issues which affect activity and may need foot surgery Encouraged to continue healthy lifestyle Encouraged to contact us with any concerns or question, we will follow up in 3 months Assessment & Plan (01/24/2024 1:14 PM EDT): We did not adjust insulin pump settings today, Latanya continues on mostly basal infusion with mealtime bolus delivery for higher carb options, this has generally worked very well for her and her control remains excellent We discussed some considerations for higher carb meal dosing Recent challenges in health have posed some inconsistencies in glucose patterns, Latanya has managed this well Latanya benefits from diabetic shoes as she keeps active, this allows her to maintain foot comfort and provides appropriate support She did not tolerate basal insulin by injection in the past and has has excellent and stable control on insulin pump therapy Using CGM consistently Stable DPN and retinopathy symptoms, up to date on routine foot and eye care; recent close follow up of foot infection, now healed Encouraged to continue healthy lifestyle Encouraged to contact us with any concerns or question, we will follow up in 3 months Assessment & Plan (07/21/2023 7:15 PM EDT): We did not adjust insulin pump settings today, Latanya continues on mostly basal infusion with mealtime bolus delivery for higher carb options, this has generally worked very well for her and her control remains excellent Recent challenges in schedule and demands on her, there have been some inconsistencies in eating and this has led to occ elevations, Latanya manages this well Latanya benefits from diabetic shoes as she keeps active, this allows her to maintain foot comfort and provides appropriate support She did not tolerate basal insulin by injection in the past and has has excellent and stable control on insulin pump therapy Using CGM consistently Stable DPN and retinopathy symptoms, up to date on routine foot and eye care Encouraged to continue healthy lifestyle Encouraged to contact us with any concerns or question, we will follow up in 3 months Assessment & Plan (12/17/2022 2:23 PM EDT): We did not adjust insulin pump settings today, Latanya continues on basal infusion only. Her overall glycemic control remains excellent with average sugar of 120 and only 3% low. Her evening and nighttime PPGs are occasionally increased, although this is likely due to her recent travel to help her son in [place] with his illness. We discussed possible further reduction if her lows once again become more frequent She did not tolerate basal insulin by injection in the past and has has excellent and stable control on insulin pump therapy Using CGM consistently Stable DPN and retinopathy symptoms Encouraged to continue healthy lifestyle Encouraged to contact us with any concerns or question and follow up in 3 months. Assessment & Plan (05/28/2022 3:51 PM EDT): We did not adjust insulin pump settings today, Latanya continues on basal infusion only. Her frequency of low sugars has diminished from 9 to <4% following a modest reduction in her basal rate over night. We discussed possible further reduction if her lows once again become more frequent. She did not tolerate basal insulin by injection in the past and has has excellent and stable control on insulin pump therapy Using CGM consistently Stable DPN symptoms Encouraged to continue healthy lifestyle Assessment & Plan (11/09/2021 4:28 PM EST): We did not adjust insulin pump settings today, Latanya continues on basal infusion only, we did discuss likely benefits of reducing basal insulin delivery overnight which will likely raise glucose more comfortably into the normal range and reduce CGM low alerts, Mike will consider this but did not want to make these changes during our visit She did not tolerate basal insulin by injection in the past and has has excellent and stable control on insulin pump therapy Using CGM consistently Stable DPN symptoms Encouraged to continue healthy lifestyle Assessment & Plan (05/08/2021 1:10 PM EDT): We did not adjust insulin pump settings today, Latanya continues on basal infusion only She did not tolerate basal insulin in the past and has has excellent and stable control on insulin pump therapy We discussed pump therapy options, particularly in light of Latanya's water activities during the summer Stable DPN symptoms Encouraged to continue healthy lifestyle Assessment & Plan (11/10/2020 6:38 PM EST): Stable DPN symptoms Encouraged to continue healthy lifestyle Assessment & Plan (02/01/2020 11:00 AM EDT): Stable DPN symptoms, now more pain due to RA as a result of no access to weekly MTX Blood sugar control per report remains excellent Encouraged to continue healthy lifestyle Assessment & Plan (07/31/2019 9:52 PM EDT): Stable DPN symptoms Recent toe amputation due to management of thickened callous, followed by ID and continued follow up with rheumatology for RA Blood sugar control remains excellent Encouraged to continue healthy lifestyle Assessment & Plan (06/03/2019 8:57 AM EDT): Diabetic neuropathy causing tingling numbness and pain in both feet is another reason why she needs for custom-made shoes. Continued tight control of her diabetes and appropriate hygiene to prevent infection of both feet was discussed today. Assessment & Plan (02/02/2019 9:29 AM EDT): Overall glucose control is excellent Activity is affected by current foot issues Continues with healthy diet Running insulin pump on basal rate only, we did not adjust these today Assessment & Plan (08/04/2018 1:11 PM EST): Overall glucose control is excellent Running on the low end of normal and advised to monitor for any pattern of defensive eating which may be thwarting her efforts at weight loss We did not make any changes in basal rates Will return to meet with our educator staff in October and to see me in January Assessment & Plan (04/15/2018 4:51 PM EDT): Stable with pins and needles in her feet and hands not too troublesome and well-controlled on current medications. No signs of diabetic amyotrophy Assessment & Plan (02/20/2018 12:39 PM EDT): Very well controlled blood sugars Sporadic blood sugar monitoring but readings are very stable and consistent with A1c results We did not adjust insulin pump settings today Encouraged to continue current lifestyle and diabetes management efforts Assessment & Plan (01/07/2018 2:47 PM EDT): Diabetes has been stable on the insulin pump. She is bothered quite a bit by nighttime cramping. We discussed magnesium deficiency and a small magnesium supplements at bedtime as well as trying apple cider vinegar and or tonic water at bedtime. Assessment & Plan (11/15/2017 12:37 PM EST): Continues to have excellent control on basal predominant insulin delivery via insulin pump No changes made to pump settings today Will return in 3 months to meet with kevin jo Advised to call with any questions or concerns in the interim Assessment & Plan (08/15/2017 1:00 PM EST): Excellent control on current insulin pump settings Using basal insulin primarily, very little bolus wizard usage and none in past two weeks We did not make any adjustments in settings today Type 1 diabetes mellitus wit h stable proliferative retinopathy of both eyes 08/09/2017 Assessment & Plan (02/05/2025 1:54 PM EDT): Routine eye care is up to date Blood pressure is very well controlled historically, borderline today Blood sugar control remains very good Advised to try to get back to some regular activity, this will help support glucose patterns and also help weight management Assessment & Plan (07/31/2024 2:17 PM EDT): Routine eye care is up to date Blood pressure is very well controlled Blood sugar control remains very good though variability is high Assessment & Plan (01/24/2024 1:14 PM EDT): Routine eye care is up to date Blood pressure is very well controlled Blood sugar control remains excellent Assessment & Plan (07/21/2023 7:15 PM EDT): Routine eye care is up to date Blood pressure and blood sugar are very well controlled Blood sugar control remains excellent Assessment & Plan (12/17/2022 2:24 PM EDT): Routine eye care is up to date Blood pressure and blood sugar are very well controlled Assessment & Plan (05/28/2022 3:51 PM EDT): Routine eye care is up to date Blood pressure and blood sugar are very well controlled Assessment & Plan (11/09/2021 4:28 PM EST): Routine eye care is up to date Blood pressure and blood sugar are very well controlled Assessment & Plan (05/08/2021 1:09 PM EDT): Routine eye care is up to date Blood pressure and blood sugar are very well controlled Assessment & Plan (11/10/2020 6:38 PM EST): Routine eye care has been up to date Blood pressure and blood sugar are historically very well controlled Assessment & Plan (02/01/2020 10:59 AM EDT): Routine eye care has been up to date Blood pressure and blood sugar are historically very well controlled Assessment & Plan (07/31/2019 9:52 PM EDT): Routine eye care is up to date Blood pressure and blood sugar are very well controlled Assessment & Plan (02/02/2019 9:31 AM EDT): Routine eye care is up to date Blood pressure remains in good control Assessment & Plan (08/04/2018 1:09 PM EST): Routine eye care is up to date Blood pressure remains in good control Assessment & Plan (02/20/2018 12:39 PM EDT): Routine eye care is up to date Blood pressure control is excellent Assessment & Plan (11/15/2017 12:35 PM EST): Routine care up to date Recent increase in bleeding is being managed Blood pressure control is excellent Assessment & Plan (08/15/2017 1:03 PM EST): Consistent care with ophtho team including retinal specialist, 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 Limit concentrated sugars, saturated fats and calories in the diet. Keep well-hydrated. If unable to achieve expected goal consider formal dietary/nutritional support. Subacute osteomyelitis of left foot 04/23/2019 05/21/2019 Assessment & Plan (05/21/2019 11:02 AM EDT): Osteomyelitis of the left second toe is now cured by amputation. She does not use orthopedic shoes, though she is interested in getting them. I have also recommended that she look carefully at her feet every day, which she says she does do. She should come for care immediately if she sees any erythema or drainage. Not need to make any follow-up appointments with her now, but I am happy to see her in the future as needed Assessment & Plan (04/23/2019 5:41 PM EDT): Patient with documented osteomyelitis of the left second toe documented by bone scan and more recent MRI culture on 628 grew staph species sensitive to Cipro. Culture done on 628 grew staph species sensitive to Cipro. I agree that nonviable tissue needs to be debrided. It may be possible to cure her osteomyelitis with 6 to 12 weeks of high-dose oral antibiotic. Cipro has good penetration into bone, though because she is a very large woman we will increase the dose to 750 twice daily. Unfortunately in the middle of all this she had a normal CRP so we cannot follow inflammatory markers to know if and when she has better [facility] doctor also ordered hyperbaric oxygen, which apparently she cannot take because of history of retinal bleed I have referred her to Dr. Miranda for debridement and wound care. I will be away for 2 weeks and we will see her when I return. I will order monitoring lab work at her next visit. Insulin pump fitting or adjustment 11/25/2018 11/09/2021 Rheumatoid arthritis involvi ng right hand with positive rheumatoid factor 08/09/2017 02/14/20 22 Assessment & Plan (06/07/2021 4:53 PM EDT): She is doing well with methotrexate. She will continue on this and I refilled her today along with 5 mg of leucovorin taken 24 hours after the methotrexate. She was made aware of potential toxicities of methotrexate but she exhibits none and it has kept her rheumatoid arthritis in control. There are no extra-articular manifestations of disease. Request for new labs were ordered. Hospital Outpatient Visit on 03/31/2021 Component Date Value Ref Range Status VITAMIN B12 03/31/2021 502 232 - 1,245 pg/mL Final FOLIC ACID 03/31/2021 >20.0* 4.2 - 19.9 ng/mL Final TSH 03/31/2021 2.20 0.27 - 4.20 uIU/mL Final HDL 03/31/2021 98 mg/dL Final Comment: Interpretation <40 mg/dL: Low HDL cholesterol (major risk factor for CHD) Greater than or equal to 60 mg/dL: High HDL cholesterol ( negative risk factor for CHD) HDL - cholesterol is affected by a number of factors, e.g. smoking, excerise, hormones, sex and age. CHOLESTEROL 03/31/2021 183 0 - 240 mg/dL Final TRIGLYCERIDES 03/31/2021 20* 30 - 160 mg/dL Final LDL 03/31/2021 81 50 - 129 mg/dL Final Comment: LDL levels in terms of risk for coronary heart disease: <100 mg/dL: Optimal 100-129 mg/dL: Near or above optimal 130-159 mg/dL: Borderline high 160-189 mg/dL: High >190 mg/dL: Very High CARDIAC RISK RATIO 03/31/2021 1.9* 3.3 - 4.4 Final C REACTIVE PROTEIN 03/31/2021 <3.0 0.0 - 4.0 mg/L Final WBC 03/31/2021 6.31 4.00 - 11.00 K/uL Final RBC 03/31/2021 4.36 3.72 - 5.30 M/uL Final HGB 03/31/2021 12.0 11.4 - 15.9 g/dL Final HCT 03/31/2021 38.0 34.2 - 46.8 % Final PLT 03/31/2021 233 140 - 430 K/uL Final MCV 03/31/2021 87.2 78.0 - 97.0 fL Final MCH 03/31/2021 27.5 25.0 - 33.0 pg Final MCHC 03/31/2021 31.6* 32.0 - 36.0 g/dL Final RDW 03/31/2021 16.1* 11.0 - 16.0 % Final MPV 03/31/2021 13.0* 8.4 - 12.8 fl Final NRBC 03/31/2021 0.00 0 /100 WBCs Final ABSOLUTE NRBC 03/31/2021 0.00 0 K/uL Final DIFF METHOD 03/31/2021 Auto Final NEUTS 03/31/2021 40.7* 43.0 - 75.0 % Final LYMPHS 03/31/2021 37.4 18.2 - 47.4 % Final MONOS 03/31/2021 11.3* 4.00 - 11.00 % Final EOS 03/31/2021 9.0* 0.0 - 8.0 % Final BASOS 03/31/2021 1.4 0.0 - 2.0 % Final Granulocytes, immature (%) 03/31/2021 0.2 0.0 - 0.9 % Final ABSOLUTE NEUTS 03/31/2021 2.57 1.80 - 7.70 K/uL Final ABSOLUTE LYMPHS 03/31/2021 2.36 1.00 - 3.10 K/uL Final ABSOLUTE MONOS 03/31/2021 0.71 0.20 - 0.80 K/uL Final ABSOLUTE EOS 03/31/2021 0.57 0.00 - 0.80 K/uL Final ABSOLUTE BASOS 03/31/2021 0.09 0.00 - 0.09 K/uL Final Granulocytes, immature 03/31/2021 0.01 0.00 - 0.05 K/uL Final SODIUM 03/31/2021 141 133 - 146 mmol/L Final POTASSIUM 03/31/2021 4.5 3.3 - 5.1 mmol/L Final CHLORIDE 03/31/2021 105 96 - 108 mmol/L Final CO2 03/31/2021 28 21 - 35 mmol/L Final BUN 03/31/2021 16 6 - 19 mg/dL Final CREATININE 03/31/2021 0.70 0.5 - 1.5 mg/dL Final GLUCOSE 03/31/2021 59* 70 - 99 mg/dL Final ALBUMIN 03/31/2021 3.9 3.9 - 4.8 g/dL Final TOTAL PROTEIN 03/31/2021 6.7 6.5 - 8.0 g/dL Final CALCIUM 03/31/2021 9.3 8.4 - 10.3 mg/dL Final ALKALINE PHOSPHATASE 03/31/2021 52 39 - 117 U/L Final TOTAL BILIRUBIN 03/31/2021 0.6 0.0 - 1.2 mg/dL Final AST 03/31/2021 30 0 - 37 U/L Final ALT 03/31/2021 18 0 - 40 U/L Final GLOBULIN 03/31/2021 2.8 1 - 4.8 g/dL Final EGFR 03/31/2021 89 >59 mL/min/1.73m2 Final Estimated glomerular filtration rate calculated using the CKD-EPI equation. ANION GAP 03/31/2021 13 10 - 20 mmol/L Final Assessment & Plan (03/06/2021 4:42 PM EDT): Patient will receive a corticosteroid injection today into the right second MCP joint which is flaring. She will resume her methotrexate at 20 mg weekly parenterally. She will have lab work done today. There is no evidence of methotrexate induced toxicity. We did discuss the potential risk of long-term use of low-dose weekly methotrexate concerning her reduced immunity, potential of interstitial lung disease and hepatotoxicity. She accepts these risks. Nutrition on 02/13/2021 Component Date Value Ref Range Status HEMOGLOBIN A1C 02/13/2021 5.3 4.2 - 5.8 % Final Assessment & Plan (11/14/2020 10:25 AM EST): Severe seropositive polyarticular rheumatoid arthritis in a patient doing reasonably well on injectable methotrexate with leucovorin rescue. Long-term risks of methotrexate including interstitial lung disease, hepatotoxicity, bone thinning, and nausea as well as mucositis were discussed. She has had none of these side effects. No alcohol. Last labs were normal. Repeat liver function test today. Office Visit on 11/10/2020 Component Date Value Ref Range Status HEMOGLOBIN A1C 11/10/2020 5.6 4.2 - 5.8 % Final Hospital Outpatient Visit on 08/29/2020 Component Date Value Ref Range Status 25 OH VIT D (TOTAL) 08/29/2020 45 30 - 60 ng/mL Final C REACTIVE PROTEIN 08/29/2020 3.2 0.0 - 4.0 mg/L Final SODIUM 08/29/2020 140 133 - 146 mmol/L Final POTASSIUM 08/29/2020 4.4 3.3 - 5.1 mmol/L Final CHLORIDE 08/29/2020 105 96 - 108 mmol/L Final CO2 08/29/2020 26 21 - 35 mmol/L Final BUN 08/29/2020 17 6 - 19 mg/dL Final CREATININE 08/29/2020 0.70 0.5 - 1.5 mg/dL Final GLUCOSE 08/29/2020 101* 70 - 99 mg/dL Final ALBUMIN 08/29/2020 3.9 3.9 - 4.8 g/dL Final TOTAL PROTEIN 08/29/2020 6.6 6.5 - 8.0 g/dL Final CALCIUM 08/29/2020 9.0 8.4 - 10.3 mg/dL Final ALKALINE PHOSPHATASE 08/29/2020 56 39 - 117 U/L Final TOTAL BILIRUBIN 08/29/2020 0.4 0.0 - 1.2 mg/dL Final AST 08/29/2020 35 0 - 37 U/L Final ALT 08/29/2020 22 0 - 40 U/L Final GLOBULIN 08/29/2020 2.7 1 - 4.8 g/dL Final EGFR 08/29/2020 90 >59 mL/min/1.73m2 Final Estimated glomerular filtration rate calculated using the CKD-EPI equation. ANION GAP 08/29/2020 13 10 - 20 mmol/L Final WBC 08/29/2020 7.33 4.00 - 11.00 K/uL Final Note Reference Range updates to all CBC and Differential results. RBC 08/29/2020 4.19 3.72 - 5.30 M/uL Final HGB 08/29/2020 11.3* 11.4 - 15.9 g/dL Final Note updated Reference Ranges for all CBC and Differential results. HCT 08/29/2020 37.2 34.2 - 46.8 % Final PLT 08/29/2020 212 140 - 430 K/uL Final MCV 08/29/2020 88.8 78.0 - 97.0 fL Final MCH 08/29/2020 27.0 25.0 - 33.0 pg Final MCHC 08/29/2020 30.4* 32.0 - 36.0 g/dL Final RDW 08/29/2020 15.4 11.0 - 16.0 % Final MPV 08/29/2020 13.5* 8.4 - 12.8 fl Final NRBC 08/29/2020 0.00 0 /100 WBCs Final ABSOLUTE NRBC 08/29/2020 0.00 0 K/uL Final DIFF METHOD 08/29/2020 Auto Final NEUTS 08/29/2020 47.5 43.0 - 75.0 % Final LYMPHS 08/29/2020 33.6 18.2 - 47.4 % Final MONOS 08/29/2020 8.3 4.00 - 11.00 % Final EOS 08/29/2020 9.5* 0.0 - 8.0 % Final BASOS 08/29/2020 1.0 0.0 - 2.0 % Final Granulocytes, immature (%) 08/29/2020 0.1 0.0 - 0.9 % Final ABSOLUTE NEUTS 08/29/2020 3.48 1.80 - 7.70 K/uL Final ABSOLUTE LYMPHS 08/29/2020 2.46 1.00 - 3.10 K/uL Final ABSOLUTE MONOS 08/29/2020 0.61 0.20 - 0.80 K/uL Final ABSOLUTE EOS 08/29/2020 0.70 0.00 - 0.80 K/uL Final ABSOLUTE BASOS 08/29/2020 0.07 0.00 - 0.09 K/uL Final Granulocytes, immature 08/29/2020 0.01 0.00 - 0.05 K/uL Final TSH 08/29/2020 1.83 0.27 - 4.20 uIU/mL Final MAGNESIUM 08/29/2020 1.8 1.6 - 2.6 mg/dL Final Assessment & Plan (08/15/2020 9:13 AM EST): Severe, seropositive erosive polyarticular rheumatoid arthritis in a patient status post metatarsal fractures and osteomyelitis. We will obtain new x-rays of the right ankle and right foot and consider referral to Dr. Benedict. She will continue the [id number] ankle support and well fitting supportive shoes with good shock absorption and plenty of room in the toe box to accommodate her rheumatoid deformities. Oratory work is requested and previous lab work was reviewed. Nutrition on 08/08/2020 Component Date Value Ref Range Status HEMOGLOBIN A1C 08/08/2020 5.3 4.2 - 5.8 % Final Assessment & Plan (04/18/2020 11:16 AM EDT): Patient has polyarticular seropositive rheumatoid arthritis doing well on a combination of methotrexate injectable as well as 5 mg of leucovorin taken 24 hours after the methotrexate to reduce risk for mouth sores. Has worked out quite well for her. There are no extra-articular manifestations of disease. She has good compliance and tolerance of the medication. She had lab work done last month and I reviewed with her indicating normal electrolytes, BUN, creatinine, liver function test, CBC with differential. We will have these done again in July. Assessment & Plan (02/08/2020 10:30 AM EDT): She has not been able to get her prescription filled for the last 3 weeks but I refilled it today at 15 mg subcutaneously methotrexate per week and she is also on 5 mg of leucovorin 24 hours after the methotrexate injection. She will restart this. An order was sent to her house for repeat liver functions. We will call her with these results. No extra-articular manifestations of disease. 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 There were no extra-articular manifestations of disease. Her October 21, 2019 lab work was reviewed indicating an alkaline phosphatase of 48 with an AST of 24 and an ALT of 21. Her chest x-ray was reviewed and was clear. XR Chest [[id number]] 10/26/2019 (Final) Narrative EXAM: XR CHEST PA AND LATERAL 2 VIEWS HISTORY: XR CHEST WHEEZING R/O ASPIRATION PNEUMONIA TECHNIQUE: PA and lateral views chest. COMPARISON: 07/01/2014. FINDINGS: Lines/tubes: None. Cardiomediastinal and hilar silhouettes: Normal. Lungs: The lungs are clear. No acute pulmonary consolidation or pleural effusion. Impression No acute process. No pulmonary consolidation. POS - [id number] Signed by: Jeannine Ventura MD Assessment & Plan (08/03/2019 6:00 PM EST): Patient's polyarticular seropositive erosive rheumatoid arthritis will continue to be managed with methotrexate. She is seeing some effect now that she has restarted medication at 15 mg subcutaneously weekly followed by 5 mg of leucovorin 24 hours after the methotrexate injection. She has seen no side effect and I detect no toxicity. Previous lab work showed no elevation of liver transaminases and this will be repeated today. Nutrition on 05/05/2019 Component Date Value Ref Range Status HEMOGLOBIN A1C 05/05/2019 5.7 4.2 - 5.8 % Final HEMOGLOBIN A1C - EXTERNAL 05/05/2019 5.7 % Final POCT Worsening right thigh and groin pain with diminished internal rotation provoking the pain on exam is suggestive of pain from the right hip capsule which will be investigated by right hip x-ray today. I will get back to her by phone call. Assessment & Plan (06/03/2019 8:58 AM EDT): Patient's polyarticular seropositive erosive rheumatoid arthritis is more active. She needs to be back on her methotrexate. We went over risks and benefits of restarting her subcutaneous methotrexate and will restart at a slightly lower dose for 15 mg weekly and she will stay on 5 mg of leucovorin 24 hours after her methotrexate. Flu vaccine next month. Speak to primary care about status of Prevnar 13 and Pneumovax 23 pneumococcal vaccines. Aside from xerostomia no extra-articular manifestations of disease. Restarting methotrexate will depend on my evaluation of liver function test which was scheduled for today. Previous test from March were reviewed. Nutrition on 05/05/2019 Component Date Value Ref Range Status HEMOGLOBIN A1C 05/05/2019 5.7 4.2 - 5.8 % Final HEMOGLOBIN A1C - EXTERNAL 05/05/2019 5.7 % Final POCT Admission on 05/01/2019, Discharged on 05/01/2019 Component Date Value Ref Range Status WHOLE BLOOD GLUCOSE 05/01/2019 103* 70 - 99 mg/dL Final Assessment & Plan (04/08/2019 10:49 AM EDT): Severe polyarticular rheumatoid arthritis without extra articular manifestations of disease in patient with osteoporosis, insulin-dependent diabetes, hypothyroidism and now a foot infection. She will continue off methotrexate. 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 She is tolerating this well. She can use a occasion such as Culturelle or align for good bowel health while on antibiotics. I did review the bone scan indicating intense uptake in the left second digit. An MRI will be done to confirm or rule out osteomyelitis. Infectious disease consult is considered. Recent lab work was reviewed indicating a low white count of 7700 with a normal differential, hemoglobin 12, hematocrit 37, alkaline phosphatase 52, AST 19, ALT 15. Assessment & Plan (01/07/2019 1:02 PM EDT): Polyarticular seropositive rheumatoid arthritis. Extra articular manifestations of disease. She will continue on 15 mg of subcutaneously . methotrexate weekly. She has tolerated this well. Laboratory tests were reviewed last week indicating an alkaline phosphatase of 70 with an AST of 17 and ALT of 13 a BUN of 20 with a creatinine of 0.7. 10 you on 5 mg of leucovorin to be taken 24 hours after the methotrexate. I strongly suggested that she have the shingles vaccine. She has already had the Prevnar 13 pneumococcal vaccine 6 months ago so she is now a candidate for the next 23. He should get this immediately. Assessment & Plan (10/15/2018 12:49 PM EST): Polyarticular seropositive rheumatoid arthritis doing well on methotrexate. No extra articular manifestations of disease. No toxicity from methotrexate. Reviewed last lab work showing an alkaline phosphatase of 77 with an AST of 19 and an ALT of 16. This was in July. She will have them redrawn today along with a vitamin D level. She is taking 2000 units of vitamin D3 per day. Assessment & Plan (07/14/2018 6:14 PM EDT): Polyarticular seropositive erosive disease which is active but stable and without extra-articular manifestations in this patient with moderate obesity and insulin-dependent diabetes. She will continue methotrexate at this dose as she shows no toxicity. Talked about strategies for weight reduction and low inflammatory Mediterranean style diet which may help her inflammation and diabetes as well. Lab work was reviewed with her showing hemoglobin of 12.7 with a white count of 7500 with a normal differential and a hematocrit of 38.8 with an alkaline phosphatase of 66 and an AST of 17 with an ALT of 13. Her mammography done last month showed no masses or microcalcifications. She will restart methotrexate as her upper respiratory infection has proved significantly and there are no signs of active bacterial infection. Greater than 50% of this 28-minute visit was spent in [id number] conversation with the patient going over strategies to lose weight, proper nutrition, fall and fracture prevention strategies and risks of prolonged use of methotrexate. All of her questions were answered. Assessment & Plan (04/15/2018 4:51 PM EDT): Patient's polyarticular seropositive rheumatoid arthritis continues to show disease activity but is under reasonably good control on monotherapy with methotrexate which she tolerates well and there are no extra-articular manifestations of disease. I reviewed with her her last lab work showing a C-reactive protein at 1.9 with a hemoglobin of 12.7 and hematocrit 38.8 with a white count of 7500 with a normal differential and an ALT of 13 with an AST of 17 and an alkaline phosphatase of 66. Repeat CRP and liver function tests to be done today back to her by phone call. The meantime her dosage of methotrexate will remain unchanged. She understands the need for flu vaccine in June. We spoke about strategies for Mediterranean low inflammatory diet. Assessment & Plan (01/07/2018 2:46 PM EDT): Patient's rheumatoid arthritis is very active polyarticular seropositive and erosive but has stabilized on methotrexate injections now at 15 mg a week. I refilled her leucovorin today. She shows no signs of medication toxicity. She shows no extra-articular manifestations of disease. She had a negative mammogram in September showing no masses or microcalcifications and last week had lab work showing an alkaline phosphatase of 76 with an AST of 18, ALT 16, hemoglobin 12.7, hematocrit 39.3, white count 7300 with a normal differential, and a sedimentation rate of 19. Medications will continue unchanged. Assessment & Plan (10/08/2017 3:11 PM EST): Patient has polyarticular erosive seropositive rheumatoid arthritis well- controlled on 15 mg of methotrexate weekly. Since she has been on 5 mg of leucovorin weekly she has had no mucositis. She also has no extra-articular manifestations of disease. While she does have active disease it is under relatively good control. She shows no signs or symptoms of toxicity from medication. Encounters Date Type Department Care Team Description 07/10/2025 Refill [facility] [address] [place] [address] [place] [address] Mariza Helm MD Medication Refill 07/01/2025 Ancillary Orders [address] [address] Julieth Quiroz PA Abnormal mammogram (Primary Dx) 06/29/2025 10:21 AM EDT - 06/29/2025 11:59 PM EDT Hospital Encounter [address] [address] Julieth Quiroz PA Discharge Disposition: Home or Self Care 05/03/2025 11:00 AM EDT Nutrition [facility] [address] [place] [address] [place] [address] Mariza Helm MD Dawicki, Jessica Jeanne, LDN 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 (Primary Dx); Insulin pump in place 04/15/2025 Telephone [facility] [address] [place] [address] [place] [address] Portia Kiser MD Medication Refill 07/03/2024 Procedure Pass [address] [id number] from Last 3 Months Immunizations Immunization Administration Dates Next Due COVID-19 (Pre-07/22) Antonio Vaccine, [id number], PF 12/10/2020 [id number] FORMULATION 08/19/2009 INFLUENZA, SPLIT VIRUS, TRIVALENT PF 06/07/2020, 06/30/2017,07/12/2016 Influenza High-Dose Trivalen t Preservative Free IM 06/15/2019,06/05/2018 Influenza Quadrivalent Adjuv anted Preservative Free IM 06/16/2021 Influenza, Unspecified Formulation 06/08,07/26/2009,07/18/2007,07/20,08/09/1999 Pneumococcal polysaccharide [id number] 01/12/2019 Zoster recombinant 08/28/2019,06/15/2019 Family History Medical History Relation Comments Diabetes Daughter Cardiovascular disease Father Dementia Maternal Grandfather Alzheimer's disease Mother Cancer Paternal Grandfather Stroke Paternal Grandmother Diabetes Sister Breast cancer Neg Hx Relation Status Comments Daughter type 2 diabetes Father Maternal Grandfather Mother Paternal Grandfather prostate ca ncer Paternal Grandmother Sister type 2 diabetes Social History Tobacco Use Types Packs/Day Years Used Date Smoking Tobacco: Never Passive Smoke Exposure: Never Smokeless Tobacco: Never Tobacco Cessation:Counseling Given: Not Answered Alcohol Use Standard Drinks/Week Comments Yes 1 [...] Orientation Straight 12/08/2024 3: 48 AM EDT Last Filed Vital Signs Vital Sign Reading Time Taken Comments Blood Pressure 112/58 03/08/2025 9:36 AM EDT Pulse 84 02/05/2025 9:52 AM EDT Temperature 36.3 C (97.3 F) 01/06/2025 10:18 AM EDT Respiratory Rate 18 12/11/2024 3:07 PM EDT Oxygen Saturation 99% 02/05/2025 9:52 AM EDT Inhaled Oxygen Concentration - - Weight 103.4 kg (228 lb) 12/08/2024 3:32 AM EDT Height 175.3 cm (5' 9 ) 02/05/2025 9:52 AM EDT Body Mass Index 33.67 12/08/2024 3:32 AM EDT Plan of Treatment Upcoming Encounters Date Type Department Care Team (Late st Contact Info) Description 07/19/2025 1:15 PM EDT Appointment [facility] [address] [place] [address] Julieth Quiroz PA [address] [place] [address] [email or web address] 08/16/2025 10:20 AM EST Office Visit [facility] [address] [place] [address] [place] [address] Mariza Helm MD [address] [place] [address], 1st [place] [address] 09/08/2025 9:30 AM EST Office Visit [facility] [address] [place] [address] [place] [address] Portia Kiser MD [address] [place] [address], [address] [place] [address] 11/16/2025 11:00 AM EST Nutrition [facility] [address] [place] [address] [place] [address] Scarlet Soares LDN [address] [place] [address], [address] [place] [address] Health Maintenance Due Date Last Done Comments DEPRESSION SCREENING 1962 HEPATITIS C SCREENING 1970 COLOGUARD 1997 COLONOSCOPY 1997 COLORECTAL CANCER SCREENING 1997 FIT TEST 1997 FOBT 1997 SIGMOIDOSCOPY 1997 VIRTUAL COLONOSCOPY 1997 DIABETIC EYE EXAM 08/09/2017 PNEUMOCOCCAL VACCINES (50+ years) (2 of 2 - PCV) 01/13/2020 01/12/2019 LIPID PANEL 09/19/2024 09/19/2023, 06/02, 03/31/2021, Additional history exists INFLUENZA VACCINE (#1) 2025 , 05/25/2023, 06/24/2022, Additional history exists COVID-19 VACCINE ( season) 2025 03/19/2025, 07/04/2024, 08/05/2023, Additional history exists TSH LEVEL 07/27/2025 07/27/2024, 05/0 04/2024, 09/19/2023, Additional history exists BLOOD PRESSURE 09/07/2025 03/08/2025 HEMOGLOBIN A1C 11/03/2025 05/03/2025, 05/0 05/2025, 11/03/2024, Additional history exists CREATININE LEVEL 02/17/2026 02/17/2025, , 12/10/2024, Additional history exists POTASSIUM LEVEL 02/17/2026 02/17/2025, 11/28, 12/10/2024, Additional history exists MAMMOGRAM 06/29/2027 06/29/2025, 07/01, 10/31/2020, Additional history exists Adult Td,Tdap Booster 08/19/2033 08/19/2023 ZOSTER VACCINES Completed 08/28/2019, 06/15/2019 RSV VACCINE Completed 08/12/2023 OSTEOPOROSIS SCREENING INITIAL (ONE-TIME) Completed 11/08/2023, 09/26/2020, 08/01/2018 SMOKING STATUS SCREENING (Once After 26 Yrs) Completed 06/29/2025 HEPATITIS A VACCINES Aged Out No long er eligible based on patient's age to complete this topic HIB VACCINES Aged Out No longer eligi ble based on patient's age to complete this topic MENINGOCOCCAL VACCINES (ACWY) Aged Out No longer eligible based on patient's age to complete this topic MENINGOCOCCAL VACCINES (B) Aged Out N o longer eligible based on patient's age to complete this topic Medical Devices Not on file Procedures Procedure Name Priority Date/Time Associated Diagnosis Comments BI MAMMOGRAM SCREENING WITH TOMOSYNTHESIS WITH CAD (BILATERAL) Routine 06/29/2025 10:44 AM EDT Breast screening POCT HEMOGLOBIN A1C Routine 05/03/2025 1 1:31 AM EDT 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 Insulin pump in place COMPREHENSIVE METABOLIC PANEL Routine 02/17/2025 9:06 AM EDT Age-related osteoporosis without current pathological fracture TSH WITH REFLEX Routine 07/27/2024 10:42 AM EDT Acquired hypothyroidism BD DXA AXIAL (SPINE) WITH HIP Routine 11/08/2023 9:00 AM EST Encounter for monitoring denosumab therapy Age-related osteoporosis without current pathological fracture LIPID PANEL Routine 09/19/2023 9:39 AM EST Type 1 diabetes mellitus with diabetic neuropathy Hypothyroidism, unspecified type Hyperlipidemia, unspecified hyperlipidemia type from Last 3 Months or Most Recently Relevant to Health Maintenance Results * (ABNORMAL) BI MAMMOGRAM SCREENING WITH TOMOSYNTHESIS WITH CAD (BILATERAL) (06/29/2025 10:44 AM EDT) Anatomical Region Laterality Modality Breast Left, Breast Right, Breast Bilateral Bila teral Mammography 06/29/2025 5:36 PM EDT Impressions 06/29/2025 5:38 PM EDT 1. Prominent lymph node within the right axilla for which additional imaging with ultrasound is recommended.. 2. No mammographic evidence of malignancy in the left breast. BI-RADS 0 INCOMPLETE Needs additional imaging evaluation The patient will be notified of the results and recommendations. The mammography department will contact the patient to arrange for the additional imaging. Narrative 06/29/2025 5:38 PM EDT BI MAMMOGRAM SCREENING WITH TOMOSYNTHESIS WITH CAD (BILATERAL) Additional patient information: Screening. COMPARISON: Comparison is made with relevant prior imaging. Breast composition: The breasts are almost entirely fatty. FINDINGS: Right There is a prominent lymph node within the right axilla. There are no suspicious calcifications or other abnormalities. Left No abnormal masses, suspicious calcifications, or other significant findings are identified mammographically in the left breast. Procedure Note Marsha Serna MD - 06/29/2025 BI MAMMOGRAM SCREENING WITH TOMOSYNTHESIS WITH CAD (BILATERAL) Additional patient information: Screening. COMPARISON: Comparison is made with relevant prior imaging. Breast composition: The breasts are almost entirely fatty. FINDINGS: Right There is a prominent lymph node within the right axilla. There are nosuspicious calcifications or other abnormalities. Left No abnormal masses, suspicious calcifications, or other significantfindings are identified mammographically in the left breast. IMPRESSION: 1. Prominent lymph node within the right axilla for which additionalimaging with ultrasound is recommended.. 2. No mammographic evidence of malignancy in the left breast. BI-RADS 0 INCOMPLETE Needs additional imaging evaluation The patient will be notified of the results and recommendations. Themammography department will contact the patient to arrange for theadditional imaging. Julieth GARCIA IMG MG EXAMS Final Result * (ABNORMAL) POCT Hemoglobin A1c (05/03/2025 11:31 AM EDT) Hemoglobin A1c 5.6 4.2 - 5.6 % [facility] Other 05/03/2025 11:3 1 AM EDT Jacqueline Young CNP POINT OF CARE TEST ORDERABLES Final Result Performing Organization Address City/State/[facility] Co de Phone Number [facility] [address] [place] [address], [facility] * (ABNORMAL) Comprehensive metabolic panel (02/17/2025 9:06 AM EDT) SODIUM 140 133 - 146 mmol/L [facility] POTASSIUM 4.4 3.3 - 5.1 mmol/L [facility] CHLORIDE 104 96 - 108 mmol/L [facility] CO2 26 21 - 35 mmol/L [facility] BUN 28(H) 6 - 19 mg/dL [facility] CREATININE 0.60 0.5 - 1.5 mg/dL [facility] GLUCOSE 120(H) 70 - 99 mg/dL [facility] ALBUMIN 3.7(L) 3.9 - 4.8 g/dL [facility] TOTAL PROTEIN 6.9 6.5 - 8.0 g/dL [facility] CALCIUM 9.0 8.4 - 10.3 mg/dL [facility] ALKALINE PHOSPHATASE 73 39 - 117 U/L [facility] TOTAL BILIRUBIN 0.3 0.0 - 1.2 mg/dL [facility] AST 21 0 - 37 U/L [facility] ALT 15 0 - 40 U/L [facility] GLOBULIN 3.2 1 - 4.8 g/dL [facility] EGFR 95 >59 mL/min/1.7 3m2 [facility] Comment:Estimated glomerular filtration rate calculated using the CKD-EPI refit equation. ANION GAP 14 10 - 20 mmol/L [facility] Blood 02/17/2025 9:06 AM EDT 02/17/2025 9:08 AM EDT us Portia Kiser MD LAB BLOOD ORDERABLES Fin al Result [address] [address] * (ABNORMAL) TSH with reflex (07/27/2024 10:42 AM EDT) TSH 5.57(H) 0.27 - 4.20 uIU/mL [facility] Blood 07/27/2024 10:4 2 AM EDT 07/27/2024 11:42 AM EDT us Julieth GARCIA LAB BLOOD ORDERABLES Final Resu lt [address] [address] * BD DXA AXIAL (SPINE) WITH HIP (11/08/2023 9:00 AM EST) Anatomical Region Laterality Modality Bone Density Bone Density 11/12/2023 12:4 9 PM EST Impressions 11/12/2023 6:31 PM EST Osteoporosis based upon bone mineral density in the left forearm. There was an increase in bone mineral density of 5.0% in the lumbar spine and 3.8% in the left forearm. There was a decrease in bone mineral density of 5.5% in the right total hip relative to the previous study. ATTESTATION: I, Elver Taylor as teaching physician, have reviewed the images for this case and if necessary edited the report originally created by Akhil Barnett. Narrative 11/12/2023 6:31 PM EST BD DXA AXIAL (SPINE) WITH HIP INDICATION: Screening for osteoporosis. Currently on Denosumab COMPARISON: Previous study 09/26/2020 and baseline study 08/01/2018. Evaluation of the lumbar spine, right hip and left forearm are obtained and appears technically adequate. The lumbar spine from L1 through L4 discloses a total bone mineral density of 1.034 g/cm2 T-score: -0.1 Z-Score: 2.1 WHO Classification: Normal Change from previous study: 5.0% Change from baseline study: 11.5% The right hip (total) has a total bone mineral density of 0.845 g/cm2 T-score: -0.8 Z-Score: 0.8 WHO Classification: Normal Change from previous study: -5.5% Change from baseline study: -5.5% The right hip (neck) has a total bone mineral density of 0.726 g/cm2 T-score: -1.1 Z-Score: 0.7 WHO classification: Osteopenia The left forearm has a total bone mineral density of 0.393 g/cm2 T-score: -3.4 Z-score: -1.1 WHO classification: Osteoporosis Change from previous study: 3.8% Change from baseline study: 0.3% FRAX:10-Year Fracture Risk Major Osteoporotic Fracture: 8.5% Hip Fracture: 0.9% Procedure Note Elver Taylor MD - 11/12/2023 BD DXA AXIAL (SPINE) WITH HIP INDICATION: Screening for osteoporosis. Currently on Denosumab COMPARISON: Previous study 09/26/2020 and baseline study 08/01/2018. Evaluation of the lumbar spine, right hip and left forearm are obtainedand appears technically adequate. The lumbar spine from L1 through L4 discloses a total bone mineral densityof 1.034 g/cm2 T-score: -0.1 Z-Score: 2.1 WHO Classification: Normal Change from previous study: 5.0% Change from baseline study: 11.5% The right hip (total) has a total bone mineral density of 0.845 g/cm2 T-score: -0.8 Z-Score: 0.8 WHO Classification: Normal Change from previous study: -5.5% Change from baseline study: -5.5% The right hip (neck) has a total bone mineral density of 0.726 g/cm2 T-score: -1.1 Z-Score: 0.7 WHO classification: Osteopenia The left forearm has a total bone mineral density of 0.393 g/cm2 T-score: -3.4 Z-score: -1.1 WHO classification: Osteoporosis Change from previous study: 3.8% Change from baseline study: 0.3% FRAX:10-Year Fracture Risk Major Osteoporotic Fracture: 8.5% Hip Fracture: 0.9% IMPRESSION: Osteoporosis based upon bone mineral density in the left forearm. Therewas an increase in bone mineral density of 5.0% in the lumbar spine and3.8% in the left forearm. There was a decrease in bone mineral density of5.5% in the right total hip relative to the previous study. ATTESTATION: I, Elver Taylor as teaching physician, have reviewed theimages for this case and if necessary edited the report originally createdby Akhil Barnett. us Portia BERGERON BD BONE DENSITY DEXA Final Result * (ABNORMAL) Lipid panel (09/19/2023 9:39 AM EST) [facility] HDL 87 mg/dL [facility] Comment: Interpretation <40 mg/dL: Low HDL cholesterol (major risk factor for CHD) Greater than or equal to 60 mg/dL: High HDL cholesterol ( negative risk factor for CHD) HDL - cholesterol is affected by a number of factors, e.g. smoking, excerise, hormones, sex and age. CHOLESTEROL 177 0 - 240 mg/dL [facility] TRIGLYCERIDES 56 30 - 160 mg/dL [facility] LDL 79 50 - 129 mg/dL [facility] Comment: LDL levels in terms of risk for coronary heart disease: <100 mg/dL: Optimal 100-129 mg/dL: Near or above optimal 130-159 mg/dL: Borderline high 160-189 mg/dL: High >190 mg/dL: Very High CARDIAC RISK RATIO 2.0(L) 3.3 - 4.4 C [facility] Blood 09/19/2023 9:39 AM EST 09/19/2023 9:41 AM EST us Julieth GARCIA LAB BLOOD ORDERABLES Final Resu lt [facility] [address] [place] [address] from Last 3 Months or Most Recently Relevant to Health Maintenance Insurance [employer] HMO POS EPO MEDICARE PART A & [address] [place], [place] [id number] POS EPO [facility] A & B [facility] EPO MEDICARE PART A & B O POS EPO MEDICARE PART A & B [address] [place], [place] [id number] POS EPO MEDICARE PART A & B O POS EPO MEDICARE PART A & B [employer] HMO POS EPO MEDICARE PART A & B Advance Directives For more information, please contact: [phone] (9AM - 5PM 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 Building Construction Foreman Expl anation Healthcare Proxy 12/15/2024 2:29 PM * Full Code (Latest Code Status on File) Date Activated Date Inactivated Comments 12/08/2024 6:50 PM Question Answer Comments Code Status Confirmed With: Patient Code Status Communicated To: Inpatient Attending * Full Code Date Activated Date Inactivated Comments 08/13/2024 4:41 PM 12/08/2024 6:50 PM Question Answer Comments Code Status Confirmed With: Patient Care Teams Paper Wrapping Machine Operator Relationship Specialty Start Date End Date Nancy Thomas PA [address] [place] [address] PCP - General Physician Data Entry Supervisor 01/06/25 Justin Stephens MD [email or web address] Historical LMR Provider 07/15/17 Mariza Helm MD [address] [place] [address], [address] [place] [address] [email or web address] Historical LMR Provider 07/15/17 Additional Source Comments The information contained in this document represents components of the legal health record. It is not the complete legal health record.[facility]
--- OUTSIDE RECORDS SUMMARY | 2025-07-14 15:44 | XMS_ITS | Encounter Summary ---
Author Organization [facility] Address [address] [place] [address] Phone Care Team Providers Care Roofer Helper Name Role Phone Julieth Quiroz Unavailable [phone] Scarlet Rhoades [employer] Unavailable Unavailable Justin Stephens MD Unavailable [email or web address] Shana Borges MD Unavailable [address] [employer] Unavailable Roselyn Crespo MD Unavailable [phone] Mariza Helm MD Unavailable [phone] Faisal Solomon MD Unavailable Latanya Blackman MD Primary Care Provider Nancy Thomas Primary Care Provider [phone] Encounter Details Date Type Department Care Team (Late st Contact Info) Description 08/15/2020 Procedure Pass [address] [id number] Social History Tobacco Use Types Packs/Day Years [...] Info) Description 07/19/2025 1:15 PM EDT Appointment [facility] [address] [place] [address] Julieth Quiroz PA [address] [place] [address] [email or web address] 08/16/2025 10:20 AM EST Office Visit [facility] [address] [place] [address] Mariza Helm MD [address] [place] [address], 1st [place] [address] 09/08/2025 9:30 AM EST Office Visit [facility] Rheumatology [address] [place] [address] Portia Kiser MD [address] [place] [address], [address] [place] [address] 11/16/2025 11:00 AM EST Nutrition [facility] [address] [place] [address] [place] [address] Scarlet Soares LDN [address] [place] [address], 1[address] [place] [address] documented as of this encounter Visit Diagnoses Not on filedocumented in this encounter Additional Health Concerns Infection Onset Date Last Indicated Resolved Time MRSA Comment:Import to add expiration date of 12/16/2021 per Infection Control as part of historical infection status reconciliation 10/03/2010 10/03/2010 12/17/19 22 1:36 AM EDT CoV-Risk 01/04/2022 01/04/2022 01/15/2022 1:21 AM EDT CoV-Risk 12/27/2023 12/27/2023 01/07/2024 1:22 AM EDT documented as of this encounter Care Teams Roofer Helper Relationship Specialty Start Date End Date Latanya Blackman MD [address] [place] [address] PCP - General Internal Medicine 08/15/20 01/05/25 Nancy Thomas PA [address] [place] [address] PCP - General Physician Etiquette Teacher 01/06/25 Julieth Quiroz PA [address] [place] [address] [email or web address] Historical LMR Provider 07/15/1706/01 Scarlet Rhoades NP [address] [place] [address] Historical LMR Provider 07/15/1710/07 Justin Stephens MD [email or web address] Historical LMR Provider 07/15/17 Shana Borges MD [address] [place] [address] Historical LMR Provider 07/15/17 Kiersten Luna NP [address] [place] [address] Historical LMR Provider 07/15/17 Roselyn Crespo MD [address] [place] [address], [address] [place] [address] Historical LMR Provider 07/15/17 Mariza Helm MD [address] [facility] [place] [address] Historical LMR Provider 07/15/17 Faisal Solomon MD [address] [place] [id number] Historical LMR Provider 07/15/17 2 documented as of this encounter Additional Source Comments The information contained in this document represents components of the legal health record. It is not the complete legal health record.[facility]
--- OUTSIDE RECORDS SUMMARY | 2025-07-14 15:44 | XMS_ITS | Encounter Summary ---
Author Organization [facility] Address [address] [place] [address] Phone Care Team Providers Care Surgeon Chief Name Role Phone Justin Stephens MD Unavailable [email or web address] Mariza Helm MD Unavailable Nancy Thomas Primary Care Provider [phone] Reason for Visit * Reason Comments Medication Refill Encounter Details Date Type Department Care Team (Late st Contact Info) Description 07/10/2025 Refill [facility] [address] [place] [address] Mraiza Helm MD [address] [facility], 1st [place] [address] [email or web address] Medication Refill Social History Tobacco Use Types Packs/Day Years [...] AM EDT documented as of this encounter Progress Notes * Jany Zacarias MA - 07/13/2025 4:19 PM EDT Rx Care Gap Status - Instructions for Clinical Staff (prescriber discretion applies): > Mismatch review guide > No future appt: Please schedule if appropriate. Visit Info Last visit: 02/05/2025 Mariza Helm MD - Diabetes and Nutrition [facility] > Requested f/u: Not specified Upcoming visit: None ACTIONS TAKEN BY Jany Zacarias MA - Visit needed - Scheduled; sent msg to FD; and/or reminded pt. ACEi / ARBs / Diuretic Rx Protocol (on HTN Registry) - lisinopril Criteria met; renew for up to 12 months. Visit in the past 14 months: Yes Clinical criteria: - BP within last 6 months: 112/58 on 03/08/2025 - BMP within past year: Yes - Cr, GFR and K are normal: Yes Lab Results Component Value Date SODIUM 140 02/17/2025 POTASSIUM 4.4 02/17/2025 CHLORIDE 104 02/17/2025 CO2 26 02/17/2025 BUN 28 (H) 02/17/2025 CREATININE 0.60 02/17/2025 EGFR 95 02/17/2025 documented in this encounter Plan of Treatment Upcoming Encounters Date Type Department Care Team (Late st Contact Info) Description 07/19/2025 1:15 PM EDT Appointment [facility] [address] [place] [address] Julieth Quiroz PA [address] [place] [address] [email or web address] 08/16/2025 10:20 AM EST Office Visit [facility] [address] [place] [address] [place] [address] Mariza Helm MD [address] [place] [address], 1[address] [place] [address] 09/08/2025 9:30 AM EST Office Visit [facility] [address] [place] [address] [place] [address] Portia Kiser MD [address] [place] [address], [address] [place] [address] 11/16/2025 11:00 AM EST Nutrition [facility] [address] [place] [address] Scarlet Soares LDN [address] [facility], [address] [place] [address] documented as of this encounter Visit Diagnoses Diagnosis 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 documented in this encounter Care Teams Surgeon Chief Relationship Specialty Start Date End Date Nancy Thomas PA [address] [place] [address] PCP - General Physician Bean Snipper 01/06/25 Justin Stephens MD [email or web address] Historical LMR Provider 07/15/17 Mariza Helm MD [address] [address] [email or web address] Historical LMR Provider 07/15/17 documented as of this encounter Additional Source Comments The information contained in this document represents components of the legal health record. It is not the complete legal health record.[facility]
--- OUTSIDE RECORDS SUMMARY | 2025-07-14 15:44 | XMS_ITS | Encounter Summary ---
Author Organization [facility] Address [address] [place] [address] Phone Care Team Providers Care Nursing Secretary Name Role Phone Julieth Quiroz Unavailable [phone] Scarlet Rhoades CAD APPLICATION SUPPORT SPECIALIST Unavailable Unavailable Justin Stephens MD Unavailable [email or web address] Shana Borges MD Unavailable Kiersten [address] CAD APPLICATION SUPPORT SPECIALIST Unavailable [phone] Roselyn Crespo MD Unavailable Mariza Helm MD Unavailable [phone] Faisal Solomon MD Unavailable Latanya Blackman MD Primary Care Provider Latanya Blackman MD Primary Care Provider Nancy Thomas Primary Care Provider [phone] Encounter Details Date Type Department Care Team (Late st Contact Info) Description 04/17/2018 Ancillary Orders Virtual Department 30 [place] [address] Julieth Quiroz PA [address] [place] [address] [email or web address] Post-menopausal Social History Tobacco Use Types Packs/Day Years [...] Info) Description 07/19/2025 1:15 PM EDT Appointment [address] [address] Julieth Quiroz PA [address] [place] [address] 08/16/2025 10:20 AM EST Office Visit [facility] [address] [place] [address] Mariza Helm MD [address] [place] [address], [address] [place] [address] 09/08/2025 9:30 AM EST Office Visit [facility] [address] [place] [address] Portia Kiser MD [address] [place] [address], [address] [place] [address] 11/16/2025 11:00 AM EST Nutrition [facility] [address] [place] [address] [place] [address] Scarlet Soares LDN [address] [place] [address], [address] [place] [address] documented as of this encounter Results * BD DXA SPINE AND HIP WITH FOREARM (08/01/2018 2:01 PM EDT) Anatomical Region Laterality Modality Bone Density Bone Density 08/01/2018 3:15 PM EDT Impressions 08/01/2018 3:18 PM EDT Osteoporosis evident in the left forearm. S/S: Estrogen deficiency, bone density screening, height loss, osteoporosis POS - [id number] Narrative 08/01/2018 3:18 PM EDT This is a 67-year-old postmenopausal patient with [...] of 0.887 g/cm2 for a T-score of -0.4. This is in the normal range. The left forearm has a total bone mineral density of 0.392 g/cm2 for a T-score of -3.4. This is in the osteoporosis range. Procedure Note Severino Childs MD - 08/01/2018 This is a 67-year-old postmenopausal patient with 1 inch of height lossreported.. Evaluation of the lumbar spine and both hips is obtained and appearsappropriate. The lumbar spine from L1 through L4 discloses a total bone mineral densityof 0.928 g/cm2 with a T-score of -1.1. This is in the osteopenia range. The right hip has a total bone mineral density of 0.894 g/cm2 with aT-score of - 0.4 this is in the normal range. The left hip has a total bone mineral density of 0.887 g/cm2 for a T-scoreof - 0.4. This is in the normal range. The left forearm has a total bone mineral density of 0.392 g/cm2 for aT-score of -3.4. This is in the osteoporosis range. IMPRESSION: Osteoporosis evident in the left forearm. S/S: Estrogen deficiency, bone density screening, height loss,osteoporosis POS - [id number] Julieth GARCIA IMG BD BONE DENSITY DEXA Final Result documented in this encounter Visit Diagnoses Diagnosis Post-menopausal Asymptomatic postmenopausal status (age-related) (natural) Post-menopausal Asymptomatic postmenopausal status (age-related) (natural) documented in this encounter Additional Health Concerns Infection Onset Date Last Indicated Resolved Time MRSA Comment:Import to add expiration date of 12/16/2021 per Infection Control as part of historical infection status reconciliation 10/03/2010 10/03/2010 12/17/19 1:36 AM EDT CoV-Risk 01/04/2022 01/04/2022 01/15/2022 1:21 AM EDT CoV-Risk 12/27/2023 12/27/2023 01/07/2024 1:22 AM EDT documented as of this encounter Care Teams Nursing Secretary Relationship Specialty Start Date End Date Latanya Blackman MD [address] [place] [address] PCP - General Internal Medicine 08/15/17 08/14/20 Latanya Blackman MD [address] [place] [address] PCP - General Internal Medicine 08/15/20 01/05/25 Nancy Thomas PA [address] [place] [address] PCP - General Physician Drive Man 01/06/25 Julieth Quiroz PA 15 [place] [address] Historical LMR Provider 07/15/1706/01 Scarlet Rhoades NP [address] [place] [address] Historical LMR Provider 07/15/1710/07 Justin Stephens MD [email or web address] Historical LMR Provider 07/15/17 Shana Borges MD [address] [place] [address] Historical LMR Provider 07/15/[address] NP 22 [place] [address] Historical LMR Provider 07/15/17 Roselyn Crespo MD [address] [place] [address] [email or web address] Historical LMR Provider 07/15/17 Mariza Helm MD [address] [address] Historical LMR Provider 07/15/17 Faisal Solomon MD [address] [place] [phone] Historical LMR Provider 07/15/17 2 documented as of this encounter Additional Source Comments The information contained in this document represents components of the legal health record. It is not the complete legal health record.[facility]
--- OUTSIDE RECORDS SUMMARY | 2025-07-14 15:44 | XMS_ITS | Encounter Summary ---
Author Organization [facility] Address [address] [place] [address] Phone Care Team Providers Care Event Decorator And Designer Name Role Phone Julieth Quiroz Unavailable [phone] Scarlet Rhoades MARSHMALLOW MAKER Unavailable Unavailable Justin Stephens MD Unavailable [email or web address] Shana Borges MD Unavailable Kiersten [address] MARSHMALLOW MAKER Unavailable Roselyn Crespo MD Unavailable Mariza Helm MD Unavailable [phone] Faisal Solomon MD Unavailable Latanya Blackman MD Primary Care Provider Nancy Thomas Primary Care Provider [phone] Encounter Details Date Type Department Care Team (Late st Contact Info) Description 08/15/2020 Ancillary Orders Virtual Department 30 [place] [address] Latanya Blackman MD [address] [place] [address] [phone] [email or web address] Breast cancer screening by mammogram Social History Tobacco Use Types Packs/Day Years [...] Info) Description 07/19/2025 1:15 PM EDT Appointment [address] [address] Julieth Quiroz PA [address] [place] [address] [email or web address] 08/16/2025 10:20 AM EST Office Visit [facility] [address] [place] [address] [place] [address] Mariza Helm MD [address] [place] [address], [address] [place] [address] 09/08/2025 9:30 AM EST Office Visit [facility] Rhe[facility] [address] [place] [address] [place] [address] Portia Kiser MD [address] [place] [address], [address] [place] [address] 11/16/2025 11:00 AM EST Nutrition [facility] [address] [place] [address] [place] [address] Scarlet Soares LDN [address] [place] [address], [address] [place] [address] documented as of this encounter Results * BI MAMMOGRAM SCREENING WITH TOMOSYNTHESIS WITH CAD (BILATERAL) (10/31/2020 9:23 AM EST) Anatomical Region Laterality Modality Breast Left, Breast Right, Breast Bilateral Bila teral Mammography 10/31/2020 2:56 PM EST Impressions 10/31/2020 3:00 PM EST No mammographic signs of malignancy. Annual screening is recommended. BI-RADS CATEGORY: 2 - Benign finding. DENSITY: There are scattered fibroglandular densities. Narrative 10/31/2020 3:00 PM EST Bilateral mammography is performed in conjunction with computed aided detection. 3-D tomography along with 2-D C view imaging was also performed. Comparison made to previous dated as far back as 03/14/2015 and as recent as 10/27/2019. No suspicious masses, areas of architectural distortion or suspicious microcalcifications. Asymmetry in the posterior outer left breast has been present previously and is consistent with superimposed fibroglandular tissue. Procedure Note Torsten Reilly MD - 10/31/2020 Bilateral mammography is performed in conjunction with computed aideddetection. 3-D tomography along with 2-D C view imaging was alsoperformed. Comparison made to previous dated as far back as 03/14/2015 andas recent as 10/27/2019. No suspicious masses, areas of architectural distortion or suspiciousmicrocalcifications. Asymmetry in the posterior outer left breast has beenpresent previously and is consistent with superimposed fibroglandulartissue. IMPRESSION: No mammographic signs of malignancy. Annual screening is recommended. BI-RADS CATEGORY: 2 - Benign finding. DENSITY: There are scattered fibroglandular densities. Latanya Blackman MD IMG MG EXAMS Final Resul t documented in this encounter Visit Diagnoses Diagnosis Breast cancer screening by mammogram Breast cancer screening by mammogram documented in this encounter Additional Health Concerns Infection Onset Date Last Indicated Resolved Time MRSA Comment:Import to add expiration date of 12/16/2021 per Infection Control as part of historical infection status reconciliation 10/03/2010 10/03/2010 12/17/19 22 1:36 AM EDT CoV-Risk 01/04/2022 01/04/2022 01/15/2022 1:21 AM EDT CoV-Risk 12/27/2023 12/27/2023 01/07/2024 1:22 AM EDT documented as of this encounter Care Teams Event Decorator And Designer Relationship Specialty Start Date End Date Latanya Blackman MD [address] [place] [address] PCP - General Internal Medicine 08/15/20 01/05/25 Nancy Thomas PA 140 [place] [address] PCP - General Physician Ore Roaster 01/06/25 Julieth Quiroz PA 15 [place] [address] [email or web address] Historical LMR Provider 07/15/1706/01 Scarlet Rhoades NP [address] [place] [address] Historical LMR Provider 07/15/1710/07 Justin Stephens MD [email or web address] Historical LMR Provider 07/15/17 Shana Borges MD [address] [place] [address] Historical LMR Provider 07/15/17 Kiersten Luna NP 22 [place] [address] Historical LMR Provider 07/15/17 Roselyn Crespo MD [address] [place] [address], 2nd [place] [address] [email or web address] Historical LMR Provider 07/15/17 Mariza Helm MD 22 [facility], [address] [place] [address] Historical LMR Provider 07/15/17 Faisal Solomon MD [address] [place] [phone] Historical LMR Provider 07/15/17 2 documented as of this encounter Additional Source Comments The information contained in this document represents components of the legal health record. It is not the complete legal health record.[facility]
--- OUTSIDE RECORDS SUMMARY | 2025-07-14 15:44 | XMS_ITS | Encounter Summary ---
Author Organization [facility] Address [address] [place] [address] Phone Care Team Providers Care Back Strip Machine Operator Name Role Phone Julieth Quiroz Unavailable [phone] Justin Stephens MD Unavailable [email or web address] Mariza Helm MD Unavailable [phone] Latanya Blackman MD Primary Care Provider Nancy Thomas Primary Care Provider [phone] Encounter Details Date Type Department Care Team (Late st Contact Info) Description 12/08/2024 Procedure Pass [facility], [address] [address] Social History Tobacco Use Types Packs/Day Years [...] 3:33 AM EDT Kathy Gannon RN * Jeff Davis Suicide Severity Rating Scale (Screener/Recent Self-Report) Question Answer Date of Assessment Author 1. Wish to be (Past 1 Month) No 025 3:33 AM EDT Kathy Gannon RN 2. Non-Specific Active Suici keven Thoughts (Past 1 Month) No 12/08/2024 3:33 AM EDT Cristo Gannon, AILEEN 6. Suicidal Behavior (Lifetime) No 3:33 AM EDT Kathy Gannon RN documented as of this encounter Plan of Treatment Upcoming Encounters Date Type Department Care Team (Late st Contact Info) Description 07/19/2025 1:15 PM EDT Appointment [facility] [address] [place] [address] Julieth Quiroz PA 15 [place] [address] [email or web address] 08/16/2025 10:20 AM EST Office Visit [facility] [address] [place] [address] Mariza Helm MD [address] [place] [address], [address] [place] [address] 09/08/2025 9:30 AM EST Office Visit [facility] [address] [place] [address] Portia Kiser MD [address] [place] [address], [address] [place] [address] 11/16/2025 11:00 AM EST Nutrition [facility] [address] [place] [address] Scarlet Soares LDN [address] [place] [address], [address] [place] [address] documented as of this encounter Visit Diagnoses Not on filedocumented in this encounter Care Teams Back Strip Machine Operator Relationship Specialty Start Date End Date Latanya Blackman MD 15 [place] [address] [email or web address] PCP - General Internal Medicine 08/15/20 01/05/25 Nancy Thomas PA [address] [place] [address] PCP - General Physician Brim Molder 01/06/25 Julieth Quiroz PA [address] [place] [address] [email or web address] Historical LMR Provider 07/15/1706/01 Justin Stephens MD [email or web address] Historical LMR Provider 07/15/17 Mariza Helm MD [address] [place] [address], [address] [place] [address] [email or web address] Historical LMR Provider 07/15/17 documented as of this encounter Additional Source Comments The information contained in this document represents components of the legal health record. It is not the complete legal health record.[facility]
--- OUTSIDE RECORDS SUMMARY | 2025-07-14 15:44 | XMS_ITS | Encounter Summary ---
Author Organization [facility] Address [address] [place] [address] Phone Care Team Providers Care Grease Refiner Operator Name Role Phone Julieth Quiroz Unavailable [phone] Justin Stephens MD Unavailable [email or web address] Mariza Helm MD Unavailable [phone] Latanya Blackman MD Primary Care Provider [phone] Nancy Thomas Primary Care Provider [phone] Encounter Details Date Type Department Care Team (Late st Contact Info) Description 04/10/2023 Ancillary Orders [facility], X-Ray - [address] [address] Julieth Quiroz PA [address] [place] [address] [email or web address] Neck pain; Elbow pain, chronic, right Social History Tobacco Use Types Packs/Day Years [...] on file 01/25/2023 No 01/25/2023 No 01/25/2023 Digital Access Answer Date Recorded No 02/23/2023 No 02/23/2023 Reliable internet access at home? Not on file 02/23/2023 Device with a working camera? Not on file Comments No Sex and Gender Information Value [...] 1:15 PM EDT Appointment [facility] [address] [place] [address] Julieth Quiroz PA [address] [place] [address] 08/16/2025 10:20 AM EST Office Visit [facility] [address] [place] [address] Mariza Helm MD [address] [place] [address], [address] [place] [address] 09/08/2025 9:30 AM EST Office Visit [facility] [address] [place] [address] [place] [address] Portia Kiser MD [address] [place] [address], [address] [place] [address] 11/16/2025 11:00 AM EST Nutrition [facility] [address] [place] [address] [place] [address] Scarlet Soares LDN [address] [place] [address], 1[address] [place] [address] documented as of this encounter Results * XR ELBOW 3 OR MORE VIEWS (RIGHT) (04/10/2023 9:11 AM EDT) Anatomical Region Laterality Modality Elbow Right Computed Radiogr aphy 04/13/2023 2:27 PM EDT Impressions 04/13/2023 2:29 PM EDT Spurring along the medial and lateral epicondyles, may reflect epicondylitis. No acute osseous abnormality or significant degenerative change. Narrative 04/13/2023 2:29 PM EDT XR ELBOW 3 OR MORE VIEWS (RIGHT) COMPARISON: None FINDINGS: No acute fracture or dislocation. Osseous alignment within normal limits. Minimal spurring along the medial and lateral epicondyles. Procedure Note Anushka Oglesby MD - 04/13/2023 XR ELBOW 3 OR MORE VIEWS (RIGHT) COMPARISON: None FINDINGS: No acute fracture or dislocation. Osseous alignment within normal limits.Minimal spurring along the medial and lateral epicondyles. IMPRESSION: Spurring along the medial and lateral epicondyles, may reflectepicondylitis. No acute osseous abnormality or significant degenerative change. Julieth GARCIA IMG XR UPPER EXTREMITY Final Re sult * XR CERVICAL SPINE 4-5 VIEWS (04/10/2023 9:10 AM EDT) Anatomical Region Laterality Modality C-spine Computed Radiogr aphy 04/13/2023 2:25 PM EDT Impressions 04/13/2023 2:27 PM EDT No acute osseous abnormality or significant degenerative change. Narrative 04/13/2023 2:27 PM EDT XR CERVICAL SPINE 4-5 VIEWS COMPARISON: None FINDINGS: ALIGNMENT: No spondylolisthesis. Open-mouth view demonstrates normal alignment of the C1-C2 lateral masses. VERTEBRAE: Vertebral body heights preserved. DISCS: Disc heights preserved. FACETS: Facets normally aligned. Oblique neuroforaminal views demonstrate no significant osseous neuroforaminal stenosis. PARASPINAL SOFT TISSUES: Within normal limits. Procedure Note Anushka Oglesby MD - 04/13/2023 XR CERVICAL SPINE 4-5 VIEWS COMPARISON: None FINDINGS: ALIGNMENT: No spondylolisthesis. Open-mouth view demonstrates normalalignment of the C1-C2 lateral masses. VERTEBRAE: Vertebral body heights preserved. DISCS: Disc heights preserved. FACETS: Facets normally aligned. Oblique neuroforaminal views demonstrateno significant osseous neuroforaminal stenosis. PARASPINAL SOFT TISSUES: Within normal limits. IMPRESSION: No acute osseous abnormality or significant degenerative change. Julieth GARCIA IMG XR SPINE Final Result documented in this encounter Visit Diagnoses Diagnosis Neck pain Cervicalgia Elbow pain, chronic, right Elbow pain, chronic, right Neck pain Cervicalgia documented in this encounter Additional Health Concerns Infection Onset Date Last Indicated Resolved Time CoV-Risk 12/27/2023 12/27/2023 01/07/2024 1:22 AM EDT documented as of this encounter Care Teams Grease Refiner Operator Relationship Specialty Start Date End Date Latanya Blackman MD [address] [place] [email or web address] PCP - General Internal Medicine 08/15/20 01/05/25 Nancy Thomas PA [address] [place] [address] PCP - General Physician Business Excellence Leader 01/06/25 Julieth Quiroz PA [address] [place] [address] Historical LMR Provider 07/15/1706/01 Justin Stephens MD [email or web address] Historical LMR Provider 07/15/17 Mariza Helm MD [address] [place] [address], [address] [place] [address] [email or web address] Historical LMR Provider 07/15/17 documented as of this encounter Additional Source Comments The information contained in this document represents components of the legal health record. It is not the complete legal health record.[facility]
--- OUTSIDE RECORDS SUMMARY | 2025-07-14 15:44 | XMS_ITS | Encounter Summary ---
Author Organization [facility] Address [address] [place] [address] Phone Care Team Providers Care Montessori Toddler Teacher Name Role Phone Julieth Quiroz Unavailable [phone] Justin Stephens MD Unavailable [email or web address] Mariza Helm MD Unavailable [phone] Latanya Blackman MD Primary Care Provider Nancy Thomas Primary Care Provider [phone] Encounter Details Date Type Department Care Team (Late st Contact Info) Description 07/03/2024 Procedure Pass [facility], [address] [address] Social History Tobacco Use Types Packs/Day Years [...] Info) Description 07/19/2025 1:15 PM EDT Appointment [facility] [address] [place] [address] Julieth Quiroz PA 15 [place] [address] [email or web address] 08/16/2025 10:20 AM EST Office Visit [facility] [address] [place] [address] Mariza Helm MD [address] [place] [address], [address] [place] [address] 09/08/2025 9:30 AM EST Office Visit [facility] [address] [place] [address] Portia Kiser MD [address] [place] [address], [address] [place] [address] 11/16/2025 11:00 AM EST Nutrition [facility] [address] [place] [address] Scarlet Soares LDN [address] [place] [address], [address] [place] [address] documented as of this encounter Visit Diagnoses Not on filedocumented in this encounter Care Teams Montessori Toddler Teacher Relationship Specialty Start Date End Date Latanya Blackman MD [address] [place] [email or web address] PCP - General Internal Medicine 08/15/20 01/05/25 Nancy Thomas PA [address] [place] [address] PCP - General Physician Material Stockkeeper Yard 01/06/25 Julieth Quiroz PA [address] [place] [address] [email or web address] Historical LMR Provider 07/15/1706/01 Justin Stephens MD [email or web address] Historical LMR Provider 07/15/17 Mariza Helm MD [address] [place] [address], [address] [place] [address] [email or web address] Historical LMR Provider 07/15/17 documented as of this encounter Additional Source Comments The information contained in this document represents components of the legal health record. It is not the complete legal health record.[facility]
--- OUTSIDE RECORDS SUMMARY | 2025-07-14 15:44 | XMS_ITS | Encounter Summary ---
Author Organization [facility] Address [address] [facility] [address] [place] [address] Phone Care Team Providers Care Grid Caster Name Role Phone Julieth Quiroz Unavailable [phone] Scarlet Rhoades EQUIPMENT MAINTENANCE SUPERVISOR Unavailable Unavailable Justin Stephens MD Unavailable [email or web address] Shana Borges MD Unavailable Kiersten Way EQUIPMENT MAINTENANCE SUPERVISOR Unavailable Roselyn Crespo MD Unavailable Mariza Helm MD Unavailable [phone] Faisal Solomon MD Unavailable Latanya Blackman MD Primary Care Provider Latanya Blackman MD Primary Care Provider Nancy Thomas Primary Care Provider [phone] Encounter Details Date Type Department Care Team (Late st Contact Info) Description 10/11/2017 Ancillary Orders [facility] External Provider Virtual Department [address] [place] [address] Julieth Quiroz PA [address] [place] [address] [email or web address] Abnormal mammogram of right breast; Breast screening Social History Tobacco Use Types Packs/Day Years Used Date Smoking Tobacco: Never Smokeless Tobacco: Never Alcohol Use Standard Drinks/Week Comments Yes 1 (1 standard drink = 0.6 oz pur e alcohol) 1 or 2 times a year Comments Unknown Sex and Gender Information Value Date Recorded Sex Assigned at Female 10/07/2023 4:10 AM EST Legal Sex Female 9:59 PM EDT Gender Identity Female 10/07/2023 4:10 AM EST Sexual Orientation Straight 12/08/2024 3: 48 AM EDT documented as of this encounter Plan of Treatment Upcoming Encounters Date Type Department Care Team (Late st Contact Info) Description 07/19/2025 1:15 PM EDT Appointment [address] [address] Julieth Quiroz PA [address] [place] [address] 08/16/2025 10:20 AM EST Office Visit [facility] [address] [place] [address] [place] [address] Mariza Helm MD [address] [place] [address], [address] [place] [address] 09/08/2025 9:30 AM EST Office Visit [facility] Rhe[facility] [address] [place] [address] [place] [address] Portia Kiser MD [address] [place] [address], [address] [place] [address] 11/16/2025 11:00 AM EST Nutrition [facility] [address] [place] [address] [place] [address] Scarlet Soares LDN [address] [place] [address], [address] [place] [address] documented as of this encounter Results * BI MAMMOGRAM DIAGNOSTIC WITH TOMOSYNTHESIS WITH CAD (BILATERAL) (10/17/2017 2:56 PM EST) Anatomical Region Laterality Modality Breast Left, Breast Right, Breast Bilateral Bila teral Mammography 10/17/2017 3:07 PM EST Impressions 10/17/2017 3:19 PM EST No mammographic evidence of malignancy. In the absence of clinically significant findings a return to routine annual screening mammography would appear adequate for follow-up. Results of this examination were relayed to the patient by the technologist. BI-RADS CATEGORY: 1 - Negative. DENSITY: There are scattered fibroglandular densities. POS - [id number] Narrative 10/17/2017 3:19 PM EST Standard digital full-field 2-D C view and two-plane tomographic imaging was performed and compared with multiple prior studies, most recently 12212/13 and 04/08/2017, with utilization of computer-aided detection. The breasts are composed of scattered fibroglandular densities. The stromal markings are essentially unchanged in overall appearance and distribution. No dominant spiculated mass, suspicious clustered microcalcifications, or focal zone of pathologic skin thickening or retraction are noted to have arisen in the interim. Parenchymal pattern in the lateral right breast is overall stable. Procedure Note Norma Lozoya MD - 10/17/2017 Standard digital full-field 2-D C view and two-plane tomographic imagingwas performed and compared with multiple prior studies, most recently 95618/16 and 04/08/2017, with utilization of computer-aided detection. The breasts are composed of scattered fibroglandular densities. Thestromal markings are essentially unchanged in overall appearance anddistribution. No dominant spiculated mass, suspicious clusteredmicrocalcifications, or focal zone of pathologic skin thickening orretraction are noted to have arisen in the interim. Parenchymal pattern inthe lateral right breast is overall stable. IMPRESSION: No mammographic evidence of malignancy. In the absence of clinicallysignificant findings a return to routine annual screening mammographywould appear adequate for follow-up. Results of this examination were relayed to the patient by thetechnologist. BI-RADS CATEGORY: 1 - Negative. DENSITY: There are scattered fibroglandular densities. POS - [id number] Julieth GARCIA IMG MG EXAMS Final Result documented in this encounter Visit Diagnoses Diagnosis Abnormal mammogram of right breast Breast screening Breast screening, unspecified Abnormal mammogram of right breast Breast screening Breast screening, unspecified documented in [...] documented as of this encounter Care Teams Grid Caster Relationship Specialty Start Date End Date Latanya Blackman MD [address] [place] [address] PCP - General Internal Medicine 08/15/17 08/14/20 Latanya Blackman MD [address] [place] [address] PCP - General Internal Medicine 08/15/20 01/05/25 Nancy Thomas PA [address] [place] [address] PCP - General Physician Director Of Rehabilitation 01/06/25 Julieth Quiroz PA [address] [place] [address] Historical LMR Provider 07/15/1706/01 Scarlet Rhoades NP [address] [place] [address] Historical LMR Provider 07/15/1710/07 Justin Stephens MD [email or web address] Historical LMR Provider 07/15/17 Shana Borges MD [facility] [place] [address] Historical LMR Provider 07/15/[address] NP 22 [place] [address] Historical LMR Provider 07/15/17 Roselyn Crespo MD [address] [address] [email or web address] Historical LMR Provider 07/15/17 Mariza Helm MD [address] [address] Historical LMR Provider 07/15/17 Faisal Solomon MD [address] [place] [phone] Historical LMR Provider 07/15/17 2 documented as of this encounter Additional Source Comments The information contained in this document represents components of the legal health record. It is not the complete legal health record.[facility]
--- OUTSIDE RECORDS SUMMARY | 2025-07-14 15:44 | XMS_ITS | Encounter Summary ---
Author Organization [facility] Address [address] [facility] [address] [place] [address] Phone Care Team Providers Care Seo Strategist Name Role Phone Julieth Quiroz Unavailable [phone] Scarlet Rhoades APPLICATION SERVICES MANAGER Unavailable Unavailable Justin Stephens MD Unavailable [email or web address] Shana Borges MD Unavailable K[address] APPLICATION SERVICES MANAGER Unavailable Roselyn Crespo MD Unavailable [phone] Mariza Helm MD Unavailable [phone] Faisal Solomon MD Unavailable [phone] Latanya Blackman MD Primary Care Provider Latanya Blackman MD Primary Care Provider Nancy Tohmas Primary Care Provider [phone] Encounter Details Date Type Department Care Team (Late st Contact Info) Description 09/08/2019 Ancillary Orders [facility] Department [address] [place] [address] [phone] Latanya Blackman MD [address] [place] [address] [phone] [email or web address] Breast screening Social History Tobacco Use Types [...] Description 07/19/2025 1:15 PM EDT Appointment [address] [address] Julieth Quiroz PA [address] [place] [address] [email or web address] 08/16/2025 10:20 AM EST Office Visit [facility] [address] [place] [address] [place] [address] Mariza Helm MD [address] [place] [address], [address] [place] [address] 09/08/2025 9:30 AM EST Office Visit [facility] Rheumatology [address] [place] [address] Portia Kiser MD [address] [place] [address], [address] [place] [address] 11/16/2025 11:00 AM EST Nutrition [facility] [address] [place] [address] [place] [address] Scarlet Soares LDN [address] [place] [address], [address] [place] [address] documented as of this encounter Results * BI MAMMOGRAM SCREENING WITH TOMOSYNTHESIS WITH CAD (BILATERAL) (10/27/2019 10:58 AM EST) Anatomical Region Laterality Modality Breast Left, Breast Right, Breast Bilateral Bila teral Mammography 10/27/2019 1:57 PM EST Impressions 10/27/2019 1:58 PM EST RIGHT breast: No mammographic evidence of malignancy. LEFT breast: No mammographic evidence of malignancy. RECOMMENDED FOLLOWUP: Routine screening mammography is recommended, as clinically appropriate. The results will be sent by mail to the patient. BI-RADS CATEGORY: 1 - Negative. BREAST COMPOSITION: There are scattered fibroglandular densities. POS - [id number] Narrative 10/27/2019 1:58 PM EST EXAM: BI MAMMOGRAM SCREENING WITH TOMOSYNTHESIS WITH CAD (BILATERAL) HISTORY: Screening. * Annual Breast screening COMPARISON: Prior mammograms, most recent 10/22/2018 and dating back to 02/03/2013. TECHNIQUE: Digital breast tomosynthesis was performed in CC and MLO projections. Reconstructed 2-D C-views generated from the tomosynthesis images. Images interpreted in conjunction with R-2 Image Gas Engine Repairer computer-aided detection (CAD). FINDINGS: BREAST COMPOSITION: There are scattered areas of fibroglandular density. RIGHT breast: No suspicious masses, suspicious areas of architectural distortion or suspicious microcalcifications. LEFT breast: No suspicious masses, suspicious areas of architectural distortion or suspicious microcalcifications. Procedure Note Jeannine Ventura MD - 10/27/2019 EXAM: BI MAMMOGRAM SCREENING WITH TOMOSYNTHESIS WITH CAD (BILATERAL) HISTORY: Screening. * Annual Breast screening COMPARISON: Prior mammograms, most recent 10/22/2018 and dating back to02/03/2013. TECHNIQUE: Digital breast tomosynthesis was performed in CC and MLOprojections. Reconstructed 2-D C-views generated from the tomosynthesisimages. Images interpreted in conjunction with R-2 Image Checkercomputer-aided detection (CAD). FINDINGS: BREAST COMPOSITION: There are scattered areas of fibroglandular density. RIGHT breast: No suspicious masses, suspicious areas of architecturaldistortion or suspicious microcalcifications. LEFT breast: No suspicious masses, suspicious areas of architecturaldistortion or suspicious microcalcifications. IMPRESSION: RIGHT breast: No mammographic evidence of malignancy. LEFT breast: No mammographic evidence of malignancy. RECOMMENDED FOLLOWUP: Routine screening mammography is recommended, asclinically appropriate. The results will be sent by mail to the patient. BI-RADS CATEGORY: 1 - Negative. BREAST COMPOSITION: There are scattered fibroglandular densities. POS - [id number] Latanya Blackman MD IMG MG EXAMS Final Resul t documented in this encounter Visit Diagnoses Diagnosis Breast screening Breast screening, unspecified Breast screening Breast screening, [...] documented as of this encounter Care Teams Seo Strategist Relationship Specialty Start Date End Date Latanya Blackman MD [address] [place] [address] [email or web address] PCP - General Internal Medicine 08/15/17 08/14/20 Latanya Blackman MD [address] [place] [address] PCP - General Internal Medicine 08/15/20 01/05/25 Nancy Thomas PA 140 [place] [address] PCP - General Physician Scraper Tender 01/06/25 Julieth Quiroz PA [address] [place] [address] [place] [address] [email or web address] Historical LMR Provider 07/15/1706/01 Scarlet Rhoades APPLICATION SERVICES MANAGER [address] [place] [address] Historical LMR Provider 07/15/1710/07 Justin Stephens MD [email or web address] Historical LMR Provider 07/15/17 Shana Borges MD [address] [place] [address] Historical LMR Provider 07/15/[address] NP 22 [place] [address] Historical LMR Provider 07/15/17 Roselyn Crespo MD [address] [address] [email or web address] Historical LMR Provider 07/15/17 Mariza Helm MD [address] [address] Historical LMR Provider 07/15/17 Faisal Solomon MD [address] [place] [phone] Historical LMR Provider 07/15/17 2 documented as of this encounter Additional Source Comments The information contained in this document represents components of the legal health record. It is not the complete legal health record.[facility]
--- OUTSIDE RECORDS SUMMARY | 2025-07-14 15:44 | XMS_ITS | Encounter Summary ---
Author Organization [facility] Address [address] [facility] [address] [place] [address] Phone Care Team Providers Care Hat Block Maker Name Role Phone Julieth Quiroz Unavailable [phone] Justin Stephens MD Unavailable [email or web address] [email or web address] Mariza Helm MD Unavailable [phone] Latanya Blackman MD Primary Care Provider [phone] Nancy Thomas Primary Care Provider [phone] Encounter Details Date Type Department Care Team (Latest Contact Info) Description 07/03/2024 Transcribe Orders Virtual Department [address] [place] [address] Julieth Quiroz PA [address] [place] [address] [email or web address] Breast screening (Primary Dx) Social History Tobacco [...] Info) Description 07/19/2025 1:15 PM EDT Appointment [address] [address] Julieth Quiroz PA [address] [place] [address] [email or web address] 08/16/2025 10:20 AM EST Office Visit [facility] [address] [place] [address] [place] [address] Mariza Helm MD [address] [place] [address], [address] [place] [address] 09/08/2025 9:30 AM EST Office Visit [facility] Rheumat[facility] [address] [place] [address] Portia Kiser MD [address] [place] [address], [address] [place] [address] 11/16/2025 11:00 AM EST Nutrition [facility] [address] [place] [address] [place] [address] Scarlet Soares LDN [address] [place] [address], [address] [place] [address] documented as of this encounter Results * (ABNORMAL) BI MAMMOGRAM SCREENING WITH TOMOSYNTHESIS WITH CAD (BILATERAL) (06/29/2025 10:44 AM EDT) Anatomical Region Laterality Modality Breast Left, Breast Right, Breast Bilateral Bila teral Mammography 06/29/2025 5:3 6 PM EDT Impressions 06/29/2025 5:38 PM EDT [...] Breast screening, unspecified documented in this encounter Care Teams Hat Block Maker Relationship Specialty Start Date End Date Latanya Blackman MD 15 [place] [address] PCP - General Internal Medicine 08/15/20 01/05/25 Nancy Thomas PA 140 [place] [address] PCP - General Physician Courier Driver 01/06/25 Julieth Quiroz PA 15 [place] [address] Historical LMR Provider 07/15/1706/01 Justin Stephens MD [email or web address] Historical LMR Provider 07/15/17 Mariza Helm MD 22 [facility] [facility], [address] [place] [address] Historical LMR Provider 07/15/17 documented as of this encounter Additional Source Comments The information contained in this document represents components of the legal health record. It is not the complete legal health record.[facility]
--- OUTSIDE RECORDS SUMMARY | 2025-07-14 15:44 | XMS_ITS | Encounter Summary ---
Author Organization [facility] Address [address] [facility] [address] [place] [address] Phone Care Team Providers Care Stave Block Roller Name Role Phone Julieth Quiroz Unavailable [phone] Scarlet Rhoades BANQUET STEWARD Unavailable Unavailable Justin Stephens MD Unavailable [email or web address] Shana Borges MD Unavailable [address] BANQUET STEWARD Unavailable Roselyn Crespo MD Unavailable [phone] Mariza Helm MD Unavailable [phone] Faisal Solomon MD Unavailable Latanya Blackman MD Primary Care Provider Latanya Blackman MD Primary Care Provider Nancy Thomas Primary Care Provider [phone] Encounter Details Date Type Department Care Team (Late st Contact Info) Description 10/26/2019 Ancillary Orders [facility], X-Ray - [place] [address] [place] [address] Julieth Quiroz PA [address] [place] [address] Wheezing Social History Tobacco Use Types Packs/Day Years [...] Info) Description 07/19/2025 1:15 PM EDT Appointment [address] [address] Julieth Quiroz PA [address] [place] [address] 08/16/2025 10:20 AM EST Office Visit [facility] [address] [place] [address] Mariza Helm MD [address] [place] [address], [address] [place] [address] 09/08/2025 9:30 AM EST Office Visit [facility] [address] [place] [address] [place] [address] Portia Kiser MD [address] [place] [address], [address] [place] [address] 11/16/2025 11:00 AM EST Nutrition [facility] [address] [place] [address] [place] [address] Scarlet Soares LDN [address] [place] [address], [address] [place] [address] documented as of this encounter Results * XR CHEST PA AND LATERAL 2 VIEWS (10/26/2019 8:42 AM EST) Anatomical Region Laterality Modality Chest Radiographic Amanda ging 10/26/2019 9:00 AM EST Impressions 10/26/2019 9:01 AM EST No acute process. No pulmonary consolidation. POS - [id number] Narrative 10/26/2019 9:01 AM EST EXAM: XR CHEST PA AND LATERAL 2 VIEWS HISTORY: XR CHEST WHEEZING R/O ASPIRATION PNEUMONIA TECHNIQUE: PA and lateral views chest. COMPARISON: 07/01/2014. FINDINGS: Lines/tubes: None. Cardiomediastinal and hilar silhouettes: Normal. Lungs: The lungs are clear. No acute pulmonary consolidation or pleural effusion. Procedure Note Jeannine Ventura MD - 10/26/2019 EXAM: XR CHEST PA AND LATERAL 2 VIEWS HISTORY: XR CHEST WHEEZING R/O ASPIRATION PNEUMONIA TECHNIQUE: PA and lateral views chest. COMPARISON: 07/01/2014. FINDINGS: Lines/tubes: None. Cardiomediastinal and hilar silhouettes: Normal. Lungs: The lungs are clear. No acute pulmonary consolidation or pleuraleffusion. IMPRESSION: No acute process. No pulmonary consolidation. POS - [id number] Julieth Quiroz PA IMG XR CHEST Final Result documented in this encounter Visit Diagnoses Diagnosis Wheezing Wheezing documented in this encounter Additional Health Concerns Infection Onset Date Last Indicated Resolved Time MRSA Comment:Import to add expiration date of 12/16/2021 per Infection Control as part of historical infection status reconciliation 10/03/2010 10/03/2010 12/17/19 22 1:36 AM EDT CoV-Risk 01/04/2022 01/04/2022 01/15/2022 1:21 AM EDT CoV-Risk 12/27/2023 12/27/2023 01/07/2024 1:22 AM EDT documented as of this encounter Care Teams Stave Block Roller Relationship Specialty Start Date End Date Latanya Blackman MD 15 [place] [address] [email or web address] PCP - General Internal Medicine 08/15/17 08/14/20 Latanya Blackman MD 15 [place] [address] [email or web address] PCP - General Internal Medicine 08/15/20 01/05/25 Nancy Thomas PA [address] [place] [address] PCP - General Physician Internal Medicine Nurse 01/06/25 Julieth Quiroz PA [address] [place] [address] Historical LMR Provider 07/15/1706/01 Scarlet Rhoades NP [address] [place] [address] Historical LMR Provider 07/15/1710/07 Justin Stephens MD [email or web address] Historical LMR Provider 07/15/17 Shana Borges MD [address] [place] [address] Historical LMR Provider 07/15/17 Kiersten Luna NP [address] [place] [address] Historical LMR Provider 07/15/17 Roselyn Crespo MD [address] [place] [address], 2nd [place] [address] [email or web address] Historical LMR Provider 07/15/17 Mariza Helm MD [address] [address] [email or web address] Historical LMR Provider 07/15/17 Faisal Solomon MD [address] [place] [phone] Historical LMR Provider 07/15/17 2 documented as of this encounter Additional Source Comments The information contained in this document represents components of the legal health record. It is not the complete legal health record.[facility]
--- OUTSIDE RECORDS SUMMARY | 2025-07-14 15:44 | XMS_ITS | Encounter Summary ---
Author Organization [facility] Address [address] [facility] [place] [address] Phone Care Team Providers Care Energy Risk Management Analyst Name Role Phone Julieth Quiroz Unavailable [phone] Justin Stephens MD Unavailable [email or web address] Mariza Helm MD Unavailable [phone] Latanya Blackman MD Primary Care Provider Nancy Thomas Primary Care Provider [phone] Encounter Details Date Type Department Care Team (Late st Contact Info) Description 12/08/2024 Procedure Pass OR Admitting Dept - Virtual Department 30 [place] [address] Social History Tobacco Use Types Packs/Day Years [...] 3:33 AM EDT Kathy Gannon RN * [place] Suicide Severity Rating Scale (Screener/Recent Self-Report) Question [...] Info) Description 07/19/2025 1:15 PM EDT Appointment [facility] [address] [place] [address] Julieth Quiroz PA 15 [place] [address] .[employer] 08/16/2025 10:20 AM EST Office Visit [facility] [address] [place] [address] Mariza Helm MD [address] [place] [address], [address] [place] [address] 09/08/2025 9:30 AM EST Office Visit [facility] [address] [place] [address] Portia Kiser MD [address] [place] [address], [address] [place] [address] 11/16/2025 11:00 AM EST Nutrition [facility] [address] [place] [address] Scarlet Soares LDN [address] [place] [address], [address] [place] [address] documented as of this encounter Visit Diagnoses Not on filedocumented in this encounter Care Teams Energy Risk Management Analyst Relationship Specialty Start Date End Date Latanya Blackman MD [address] [place] [address] PCP - General Internal Medicine 08/15/20 01/05/25 Nancy Thomas PA [address] [place] [address] PCP - General Physician Drying Oven Attendant 01/06/25 Julieth Quiroz PA [address] [place] [address] Historical LMR Provider 07/15/1706/01 Justin Stephens MD [email or web address] Historical LMR Provider 07/15/17 Mariza Helm MD [address] [place] [address], [address] [place] [address] [email or web address] Historical LMR Provider 07/15/17 documented as of this encounter Additional Source Comments The information contained in this document represents components of the legal health record. It is not the complete legal health record.[facility]
--- OUTSIDE RECORDS SUMMARY | 2025-07-14 15:44 | XMS_ITS | Encounter Summary ---
Author Organization [facility] Address [address] [place] [address] Phone Care Team Providers Care Splicer Machine Operator Name Role Phone Julieth Quiroz Unavailable [phone] Scarlet Rhoades WOOD PATTERNMAKER APPRENTICE Unavailable Unavailable Justin Stephens MD Unavailable [email or web address] Shana Borges MD Unavailable Kiersten [address] WOOD PATTERNMAKER APPRENTICE Unavailable Roselyn Crespo MD Unavailable [phone] Mariza Helm MD Unavailable [phone] Faisal Solomon MD Unavailable Latanya Blackman MD Primary Care Provider [phone] Latanya Blackman MD Primary Care Provider [phone] Nancy Thomas Primary Care Provider [phone] Encounter Details Date Type Department Care Team (Late st Contact Info) Description 05/01/2019 Procedure Pass OR Admitting Dept - Virtual Department [address] [place] [address] Social History Tobacco Use Types Packs/Day Years [...] Info) Description 07/19/2025 1:15 PM EDT Appointment [facility] [address] [place] [address] Julieth Quiroz PA [address] [place] [address] [email or web address] 08/16/2025 10:20 AM EST Office Visit [facility] [address] [place] [address] [place] [address] Mariza Helm MD [address] [place] [address], [address] [place] [address] 09/08/2025 9:30 AM EST Office Visit [facility] [address] [place] [address] [place] [address] Portia Kiser MD [address] [place] [address], [address] [place] [address] 11/16/2025 11:00 AM EST Nutrition [facility] [address] [place] [address] [place] [address] Scarlet Soares LDN [address] [place] [address], 1st [place] [address] documented as of this encounter Visit Diagnoses [...] documented as of this encounter Care Teams Splicer Machine Operator Relationship Specialty Start Date End Date Latanya Blackman MD [address] [place] [address] [email or web address] PCP - General Internal Medicine 08/15/17 08/14/20 Latanya Blackman MD [address] [place] [address] PCP - General Internal Medicine 08/15/20 01/05/25 Nancy Thomas PA [address] [place] [address] PCP - General Physician Exhibit Designer 01/06/25 Julieth Quiroz PA [address] [place] [address] [email or web address] Historical LMR Provider 07/15/1706/01 Scarlet Rhoades WOOD PATTERNMAKER APPRENTICE [address] [place] [address] Historical LMR Provider 07/15/1710/07 Justin Stephens MD [email or web address] Historical LMR Provider 07/15/17 Shana Borges MD [address] [place] [address] Historical LMR Provider 07/15/[address] NP 22 [place] [address] Historical LMR Provider 07/15/17 Roselyn Crespo MD [address], [address] [place] [address] [email or web address] Historical LMR Provider 07/15/17 Mariza Helm MD [address] [facility], [address] [place] [address] [email or web address] Historical LMR Provider 07/15/17 Faisal Solomon MD [address] [place] [phone] Historical LMR Provider 07/15/17 2 documented as of this encounter Additional Source Comments The information contained in this document represents components of the legal health record. It is not the complete legal health record.[facility]
--- OUTSIDE RECORDS SUMMARY | 2025-07-14 15:44 | XMS_ITS | Encounter Summary ---
Author Organization [facility] Address [address] [place] [address] Phone Care Team Providers Care Accountant Budget Name Role Phone Julieth Quiroz Unavailable [phone] Scarlet Rhoades TRACER CLERK Unavailable Unavailable Justin Stephens MD Unavailable [email or web address] Shana Borges MD Unavailable Kiersten [address] TRACER CLERK Unavailable Roselyn Crespo MD Unavailable [phone] Mariza Helm MD Unavailable [phone] Faisal Solomon MD Unavailable [phone] Latanya Blackman MD Primary Care Provider Nancy Thomas Primary Care Provider [phone] Encounter Details Date Type Department Care Team (Latest Contact Info) Description 08/29/2020 Transcribe Orders [facility] Laboratory [address] [place] [id number] Julieth Quiroz PA [address] [place] [address] [email or web address] Leg cramps (Primary Dx); Hypothyroidism, unspecified type; Nausea Social History Tobacco Use Types Packs/Day Years [...] Info) Description 07/19/2025 1:15 PM EDT Appointment [address] [address] Julieth Quiroz PA [address] [place] [address] [email or web address] 08/16/2025 10:20 AM EST Office Visit [facility] [address] [place] [address] [place] [address] Mariza Helm MD [address] [place] [address], [address] [place] [address] 09/08/2025 9:30 AM EST Office Visit [facility] Rheumatology [address] [place] [address] Portia Kiser MD [address] [place] [address], [address] [place] [address] 11/16/2025 11:00 AM EST Nutrition [facility] [address] [place] [address] [place] [address] Scarlet Soares LDN [address] [place] [address], [address] [place] [address] documented as of this encounter Results * Magnesium (08/29/2020 7:57 AM EST) MAGNESIUM 1.8 1.6 - 2.6 mg/dL [facility] Blood 08/29/2020 7:57 AM EST 08/29/2020 8:14 AM EST us Julieth GARCIA LAB BLOOD ORDERABLES Final Resu lt [address] [address] documented in this encounter Visit Diagnoses Diagnosis Leg cramps- Primary Cramp of limb Hypothyroidism, unspecified type Nausea Nausea alone documented in this encounter Additional Health Concerns Infection Onset Date Last Indicated Resolved Time MRSA Comment:Import to add expiration date of 12/16/2021 per Infection Control as part of historical infection status reconciliation 10/03/2010 10/03/2010 12/17/19 1:36 AM EDT CoV-Risk 01/04/2022 01/04/2022 01/15/2022 1:21 AM EDT CoV-Risk 12/27/2023 12/27/2023 01/07/2024 1:22 AM EDT documented as of this encounter Care Teams Accountant Budget Relationship Specialty Start Date End Date Latanya Blackman MD [address] [place] [address] PCP - General Internal Medicine 08/15/20 01/05/25 Nancy Thomas PA [address] [place] [address] PCP - General Physician Auto Rebuilder 01/06/25 Julieth Quiroz PA [address] [place] [address] [email or web address] Historical LMR Provider 07/15/1706/01 Scarlet Rhoades NP [address] [place] [address] Historical LMR Provider 07/15/1710/07 Justin Stephens MD [email or web address] Historical LMR Provider 07/15/17 Shana Borges MD [address] [place] [address] Historical LMR Provider 07/15/[address] NP 22 [place] [address] Historical LMR Provider 07/15/17 Roselyn Crespo MD [address] [address] [email or web address] Historical LMR Provider 07/15/17 Mariza Helm MD [address] [address] Historical LMR Provider 07/15/17 Faisal Solomon MD [address] [place] [address] Historical LMR Provider 07/15/17 2 documented as of this encounter Additional Source Comments The information contained in this document represents components of the legal health record. It is not the complete legal health record.[facility]
--- OUTSIDE RECORDS SUMMARY | 2025-07-14 15:44 | XMS_ITS | Encounter Summary ---
Author Organization [facility] Address [address] [place] [address] Phone Care Team Providers Care Consulting Hr Professional Name Role Phone Julieth Quiroz Unavailable [phone] Justin Stephens MD Unavailable [email or web address] Mariza Helm MD Unavailable [phone] Latanya Blackman MD Primary Care Provider Nancy Thomas Primary Care Provider [phone] Encounter Details Date Type Department Care Team (Late st Contact Info) Description 02/19/2022 Transcribe Orders Virtual Department [address] [place] [address] Julieth Quiroz PA [address] [place] [address] [email or web address] Cough (Primary Dx) Social History Tobacco Use Types [...] Info) Description 07/19/2025 1:15 PM EDT Appointment [facility] [address] [place] [address] Julieth Quiroz PA [address] [place] [address] [email or web address] 08/16/2025 10:20 AM EST Office Visit [facility] [address] [place] [address] [place] [address] Mariza Helm MD [address] [place] [address], 1st [place] [address] 09/08/2025 9:30 AM EST Office Visit [facility] Rheumatology [address] [place] [address] [place] [address] Portia Kiser MD [address] [place] [address], [address] [place] [address] 11/16/2025 11:00 AM EST Nutrition [facility] [address] [place] [address] Scarlet Soares LDN [address] [place] [address], [address] [place] [address] documented as of this encounter Results * XR CHEST PA AND LATERAL 2 VIEWS (02/19/2022 10:19 AM EDT) Anatomical Region Laterality Modality Chest Computed Radiogr aphy 02/19/2022 12:5 5 PM EDT Impressions 02/19/2022 12:56 PM EDT Hyperinflation of the lungs without focal consolidation, suggestive of COPD. Narrative 02/19/2022 12:56 PM EDT XR CHEST PA AND LATERAL 2 VIEWS COMPARISON: 01/04/2022 FINDINGS: Devices/Tubes/Lines: None. Lungs: Hyperinflation of the lungs as before. No focal consolidation or pulmonary edema. Pleura: Normal. No pleural effusion or pneumothorax. Heart/Mediastinum: Normal heart and mediastinum. Bones/Soft Tissues: No acute skeletal abnormality. Procedure Note Cyril Holley MD - 02/19/2022 XR CHEST PA AND LATERAL 2 VIEWS COMPARISON: 01/04/2022 FINDINGS: Devices/Tubes/Lines: None. Lungs: Hyperinflation of the lungs as before. No focal consolidation orpulmonary edema. Pleura: Normal. No pleural effusion or pneumothorax. Heart/Mediastinum: Normal heart and mediastinum. Bones/Soft Tissues: No acute skeletal abnormality. IMPRESSION: Hyperinflation of the lungs without focal consolidation, suggestive ofCOPD. Julieth GARCIA IMG XR CHEST Final Result documented in this encounter Visit Diagnoses Diagnosis Cough- Primary Cough documented in this encounter Additional Health Concerns Infection Onset Date Last Indicated Resolved Time CoV-Risk 12/27/2023 12/27/2023 01/07/2024 1:22 AM EDT documented as of this encounter Care Teams Consulting Hr Professional Relationship Specialty Start Date End Date Latanya Blackman MD [address] [place] [address] PCP - General Internal Medicine 08/15/20 01/05/25 Nancy Thomas PA [address] [place] [address] PCP - General Physician Cultural Historian 01/06/25 Julieth Quiroz PA [address] [place] [address] Historical LMR Provider 07/15/1706/01 Justin Stephens MD [email or web address] Historical LMR Provider 07/15/17 Mariza Helm MD [address] [place] [address], [address] [place], [place] [id number] [email or web address] Historical LMR Provider 07/15/17 documented as of this encounter Additional Source Comments The information contained in this document represents components of the legal health record. It is not the complete legal health record.[facility]
--- OUTSIDE RECORDS SUMMARY | 2025-07-14 15:44 | XMS_ITS | Encounter Summary ---
Author Organization [facility] Address [address] [place] [address] Phone Care Team Providers Care Tobacco Blender Name Role Phone Julieth Quiroz Unavailable [phone] Scarlet Rhoades PICK UP MAN Unavailable Unavailable Justin Stephens MD Unavailable [email or web address] Shana Borges MD Unavailable [address] PICK UP MAN Unavailable Roselyn Crespo MD Unavailable Mariza Helm MD Unavailable [phone] Faisal Solomon MD Unavailable Latanya Blackman MD Primary Care Provider [phone] Latanya Blackman MD Primary Care Provider Nancy Thomas Primary Care Provider [phone] Encounter Details Date Type Department Care Team (Late st Contact Info) Description 10/17/2017 Ancillary Orders Virtual Department [address] [place] [address] Julieth Quiroz PA [address] [place] [address] [email or web address] Breast screening Social History Tobacco Use Types [...] Info) Description 07/19/2025 1:15 PM EDT Appointment [address] [address] Julieth Quiroz PA [address] [place] [address] 08/16/2025 10:20 AM EST Office Visit [facility] [address] [place] [address] Mariza Helm MD [address] [place] [address], [address] [place] [address] 09/08/2025 9:30 AM EST Office Visit [address] [address] Portia Kiser MD [address] [place] [address], [address] [place] [address] 11/16/2025 11:00 AM EST Nutrition [facility] [address] [place] [address] [place] [address] Scarlet Soares LDN [address] [place] [address], [address] [place] [address] documented as of this encounter Results * BI MAMMOGRAM SCREENING WITH TOMOSYNTHESIS WITH CAD (BILATERAL) (10/22/2018 11:50 AM EST) Anatomical Region Laterality Modality Breast Left, Breast Right, Breast Bilateral Bila teral Mammography 10/22/2018 12:5 1 PM EST Impressions 10/22/2018 12:53 PM EST No mammographic evidence of malignancy. BI-RADS CATEGORY: 1 - Negative. DENSITY: There are scattered fibroglandular densities. POS - CDHMAMA Narrative 10/22/2018 12:53 PM EST Standard digital full-field 2-D C view and two-plane tomographic imaging was performed and compared with multiple prior studies, most recently 10/17/2015, with utilization of computer-aided detection. The breasts are composed of scattered fibroglandular densities. The stromal markings are essentially unchanged in overall appearance and distribution. No dominant spiculated mass, suspicious clustered microcalcifications, or focal zone of pathologic skin thickening or retraction are noted to have arisen in the interim. Procedure Note Norma Lozoya MD - 10/22/2018 Standard digital full-field 2-D C view and two-plane tomographic imagingwas performed and compared with multiple prior studies, most ddpxqwop91/18/2016, with utilization of computer-aided detection. The breasts are composed of scattered fibroglandular densities. Thestromal markings are essentially unchanged in overall appearance anddistribution. No dominant spiculated mass, suspicious clusteredmicrocalcifications, or focal zone of pathologic skin thickening orretraction are noted to have arisen in the interim. IMPRESSION: No mammographic evidence of malignancy. BI-RADS CATEGORY: 1 - Negative. DENSITY: There are scattered fibroglandular densities. POS - CDHMAMA Julieth GARCIA IMG MG EXAMS Final Result [...] documented as of this encounter Care Teams Tobacco Blender Relationship Specialty Start Date End Date Latanya Blackman MD [address] [place] [address] [email or web address] PCP - General Internal Medicine 08/15/17 08/14/20 Latanya Blackman MD [address] [place] [address] [email or web address] PCP - General Internal Medicine 08/15/20 01/05/25 Nancy Thomsa PA [address] [place] [address] PCP - General Physician Processing Operator 01/06/25 Julieth Quiroz PA [address] [place] [address] Historical LMR Provider 07/15/1706/01 Scarlet Rhoades PICK UP MAN [address] [place] [address] Historical LMR Provider 07/15/1710/07 Justin Stephens MD [email or web address] Historical LMR Provider 07/15/17 Shana Borgse MD [address] [place] [address] Historical LMR Provider 07/15/[address] NP 22 [place] [address] Historical LMR Provider 07/15/17 Roselyn Crespo MD [address] [facility], [address] [place] [address] [email or web address] Historical LMR Provider 07/15/17 Mariza Helm MD [address] [facility], [address] [place] [address] [email or web address] Historical LMR Provider 07/15/17 Faisal Solomon MD [address] [place] [phone] Historical LMR Provider 07/15/17 2 documented as of this encounter Additional Source Comments The information contained in this document represents components of the legal health record. It is not the complete legal health record.[facility]
--- OUTSIDE RECORDS SUMMARY | 2025-07-14 15:44 | XMS_ITS | Encounter Summary ---
Author Organization [facility] Address [address] [place] [address] Phone Care Team Providers Care Academic Tutor Name Role Phone Julieth Quiroz Unavailable [phone] Justin Stephens MD Unavailable [email or web address] Mariza Helm MD Unavailable [phone] Latanya Blackman MD Primary Care Provider Nancy Thomas Primary Care Provider [phone] Encounter Details Date Type Department Care Team (Late st Contact Info) Description 02/15/2023 Ancillary Orders [facility], X-Ray - [address] [address] Julieth Quiroz PA [address] [place] [address] [email or web address] Finger injury, right, initial encounter Social History Tobacco Use Types Packs/Day Years [...] on file 01/25/2023 No 01/25/2023 No 01/25/2023 Comments No Sex and Gender Information Value Date Recorded Sex Assigned at Female 10/07/2023 4:10 AM EST Legal Sex Female 9:59 PM EDT Gender Identity Female 10/07/2023 4:10 AM EST Sexual Orientation Straight 12/08/2024 3: 48 AM EDT documented as of this encounter Plan of Treatment Upcoming Encounters Date Type Department Care Team (Late st Contact Info) Description 07/19/2025 1:15 PM EDT Appointment [facility] [address] [place] [address] Julieth Quiroz PA [address] [place] [address] [email or web address] 08/16/2025 10:20 AM EST Office Visit [facility] [address] [place] [address] [place] [address] Mariza Helm MD [address] [place] [address], [address] [place] [address] 09/08/2025 9:30 AM EST Office Visit [facility] Rheumatology [address] [place] [address] [place] [address] Portia Kiser MD [address] [place] [address], [address] [place] [address] 11/16/2025 11:00 AM EST Nutrition [facility] [address] [place] [address] Scarlet Soares LDN [address] [place] [address], [address] [place] [address] documented as of this encounter Results * XR HAND 3 OR MORE VIEWS (LEFT) (02/16/2023 8:29 AM EDT) Anatomical Region Laterality Modality Hand Left Computed Radiogr aphy 02/19/2023 11:0 3 AM EDT Impressions 02/19/2023 11:06 AM EDT No acute osseous abnormality. Advanced degenerative change in the radiocarpal joint. Concern for multifocal marginal erosions, centered in the MCP and long finger PIP. Findings raise suspicion for possible underlying inflammatory arthropathy. Narrative 02/19/2023 11:06 AM EDT XR HAND 3 OR MORE VIEWS (LEFT) COMPARISON: No relevant comparison. FINDINGS: No fracture or dislocation. Specifically, no sequela of trauma in the left small finger. There are findings concerning for multi-focal marginal erosions centered in the metacarpophalangeal joints, but also extending into the long finger PIP. Distal interphalangeal joints appear within normal limits. Advanced radiocarpal joint osteoarthritis. No substantial cystic change in the carpus. Diffuse osseous demineralization. No asymmetric soft tissue swelling. Procedure Note Luis Ulloa MD - 02/19/2023 XR HAND 3 OR MORE VIEWS (LEFT) COMPARISON: No relevant comparison. FINDINGS: No fracture or dislocation. Specifically, no sequela of trauma in the leftsmall finger. There are findings concerning for multi-focal marginalerosions centered in the metacarpophalangeal joints, but also extendinginto the long finger PIP. Distal interphalangeal joints appear withinnormal limits. Advanced radiocarpal joint osteoarthritis. No substantialcystic change in the carpus. Diffuse osseous demineralization. Noasymmetric soft tissue swelling. IMPRESSION: No acute osseous abnormality. Advanced degenerative change in theradiocarpal joint. Concern for multifocal marginal erosions, centered in the MCP and longfinger PIP. Findings raise suspicion for possible underlying inflammatoryarthropathy. Julieth GARCIA IMG XR UPPER EXTREMITY Final Re sult documented in this encounter Visit Diagnoses Diagnosis Finger injury, right, initial encounter Finger injury, right, initial encounter documented in this encounter Additional Health Concerns Infection Onset Date Last Indicated Resolved Time CoV-Risk 12/27/2023 12/27/2023 01/07/2024 1:22 AM EDT documented as of this encounter Care Teams Academic Tutor Relationship Specialty Start Date End Date Latanya Blackman MD 15 [place] [address] [email or web address] PCP - General Internal Medicine 08/15/20 01/05/25 Nancy Thomas PA [address] [place] [address] PCP - General Physician Milk Driver 01/06/25 Julieth Quiroz PA [address] [place] [address] [email or web address] Historical LMR Provider 07/15/1706/01 Justin Stephens MD [email or web address] Historical LMR Provider 07/15/17 Mariza Helm MD [address] [place] [address], [address] [place] [address] [email or web address] Historical LMR Provider 07/15/17 documented as of this encounter Additional Source Comments The information contained in this document represents components of the legal health record. It is not the complete legal health record.[facility]
--- OUTSIDE RECORDS SUMMARY | 2025-07-14 15:45 | XMS_ITS | Encounter Summary ---
Author Organization [facility] Address [address] [place] [address] Phone Care Team Providers Care Independent Film Maker Name Role Phone Julieth Quiroz Unavailable [phone] Scarlet Rhoades EMR TRAINER Unavailable Unavailable Justin Stephens MD Unavailable [email or web address] Shana Borges MD Unavailable Kiersten Way EMR TRAINER Unavailable Roselyn Crespo MD Unavailable [phone] Mariza Helm MD Unavailable [phone] Faisal Solomon MD Unavailable [phone] Latanya Blackman MD Primary Care Provider [phone] Latanya Blcakman MD Primary Care Provider Nancy Thomas Primary Care Provider [phone] Encounter Details Date Type Department Care Team (Late st Contact Info) Description 10/13/2018 Ancillary Orders [facility] - [address] [address] Julieth Quiroz PA [address] [place] [address] [email or web address] History Tobacco Use Types Packs/Day Years [...] Info) Description 07/19/2025 1:15 PM EDT Appointment [address] [address] Julieth Quiroz PA [address] [place] [address] [email or web address] 08/16/2025 10:20 AM EST Office Visit [facility] [address] [place] [phone] Mariza Helm MD [address] [place] [address], [address] [place] [phone] 09/08/2025 9:30 AM EST Office Visit [facility] [address] [place] [address] [place] [address] Portia Kiser MD [address] [place] [address], [address] [place] [address] 11/16/2025 11:00 AM EST Nutrition [facility] [address] [place] [address] [place] [address] Scarlet Soares LDN [address] [place] [address], [address] [place] [address] documented as of this encounter Results * XR FOOT 3 OR MORE VIEWS (RIGHT) (10/13/2018 2:17 PM EST) Anatomical Region Laterality Modality Foot Right Radiographic Amanda ging 10/13/2018 2:37 PM EST Impressions 10/13/2018 2:40 PM EST Recent fracture the base the fifth metatarsal with intra-articular involvement and 3-4 millimeters of distraction of the fracture fragment evident. No definitive bony bridging or bony union is noted. S/S: Base of fifth metatarsal fracture, trauma POS - [id number] Narrative 10/13/2018 2:40 PM EST COMPARISON: MRI right foot November 06, 2016 Right foot October 19, 2016 FINDINGS: 3 views of the right foot are obtained. There is a recent transverse fracture the base the fifth metatarsal with intra-articular involvement. Diffuse osteopenia is noted. No other acute fracture is seen. There is prominent calcaneal spurring noted which is unchanged. Procedure Note Severino Childs MD - 10/13/2018 COMPARISON: MRI right foot November 06, 2016 Right foot October 19, 2016 FINDINGS: 3 views of the right foot are obtained. There is a recent transverse fracture the base the fifth metatarsal withintra-articular involvement. Diffuse osteopenia is noted. No other acute fracture is seen. There is prominent calcaneal spurring noted which is unchanged. IMPRESSION: Recent fracture the base the fifth metatarsal with intra-articularinvolvement and 3-4 millimeters of distraction of the fracture fragmentevident. No definitive bony bridging or bony union is noted. S/S: Base of fifth metatarsal fracture, trauma POS - [id number] Julieth GARCIA IMG XR LOWER EXTREMITY Final Re sult * XR ANKLE 3 OR MORE VIEWS (RIGHT) (10/13/2018 2:16 PM EST) Anatomical Region Laterality Modality Ankle Right Radiographic Amanda ging 10/13/2018 2:40 PM EST Impressions 10/13/2018 2:42 PM EST Lateral soft tissue swelling with findings suggestive of an old injury to the lateral malleolus. The possibility of an acute component/avulsion cannot be completely excluded. S/S: Trauma, pain POS - [id number] Narrative 10/13/2018 2:42 PM EST COMPARISON: None FINDINGS: 3 views the right ankle are obtained. No ankle effusion is seen. There is plantar calcaneal spurring evident which is unchanged relative to prior foot x-rays. The ankle mortise is approximated. There is minor irregularity of the distal fibula suggesting prior injury. Adjacent soft tissue swelling is noted Procedure Note Severino Childs MD - 10/13/2018 COMPARISON: None FINDINGS: 3 views the right ankle are obtained. No ankle effusion is seen. There is plantar calcaneal spurring evident which is unchanged relative toprior foot x-rays. The ankle mortise is approximated. There is minor irregularity of the distal fibula suggesting prior injury.Adjacent soft tissue swelling is noted IMPRESSION: Lateral soft tissue swelling with findings suggestive of an old injury tothe lateral malleolus. The possibility of an acute component/avulsioncannot be completely excluded. S/S: Trauma, pain POS - [id number] Julieth GARCIA IMG XR LOWER EXTREMITY Final Re sult documented in this encounter Visit Diagnoses Diagnosis Pain Generalized pain Pain Generalized pain Pain Generalized pain documented in this encounter Additional Health Concerns Infection Onset Date Last Indicated Resolved Time MRSA Comment:Import to add expiration date of 12/16/2021 per Infection Control as part of historical infection status reconciliation 10/03/2010 10/03/2010 12/17/19 1:36 AM EDT CoV-Risk 01/04/2022 01/04/2022 01/15/2022 1:21 AM EDT CoV-Risk 12/27/2023 12/27/2023 01/07/2024 1:22 AM EDT documented as of this encounter Care Teams Independent Film Maker Relationship Specialty Start Date End Date Latanya Blackman MD [address] [place] [address] [email or web address] PCP - General Internal Medicine 08/15/17 08/14/20 Latanya Blackman MD [address] [place] [address] PCP - General Internal Medicine 08/15/20 01/05/25 Nancy Thomas PA [address] [place] [address] PCP - General Physician Special Service Officer 01/06/25 Julieth Quiroz PA [address] [place] [address] [email or web address] Historical LMR Provider 07/15/1706/01 Scarlet Rhoades EMR TRAINER [address] [place] [address] Historical LMR Provider 07/15/1710/07 Justin Stephens MD [email or web address] Historical LMR Provider 07/15/17 Shana Borges MD [address] [place] [address] Historical LMR Provider 07/15/17 Kiersten Luna NP [address] [place] [address] Historical LMR Provider 07/15/17 Roselyn Crespo MD [address] [facility], 2nd [place] [address] [email or web address] Historical LMR Provider 07/15/17 Mariza Helm MD [address] [facility], [address] [place] [address] [email or web address] Historical LMR Provider 07/15/17 Faisal Solomon MD [address] [place] [phone] Historical LMR Provider 07/15/17 2 documented as of this encounter Additional Source Comments The information contained in this document represents components of the legal health record. It is not the complete legal health record.[facility]
== END 2025-07-14 13:21 | disposition home or self-care (01) ==
LOC: HO.HMCFM 12:29
PROVIDERS: PCP Physician Assistant; Visit Provider Physician Assistant
DX: E10.8 Type 1 diabetes mellitus with unspecified complications (principal); Z96.41 Presence of insulin pump (external) (internal); E03.9 Hypothyroidism, unspecified; M06.9 Rheumatoid arthritis, unspecified; J45.909 Unspecified asthma, uncomplicated

== ENCOUNTER → 2025-07-14 12:28 | Outpatient (BNVA) | payer MEDICARE, OTHER, SELFPAY | PROVIDERS: PCP Physician Assistant; Visit Provider Physician Assistant | DX: E10.9 Type 1 diabetes mellitus without complications (principal); E03.9 Hypothyroidism, unspecified; J45.909 Unspecified asthma, uncomplicated; M06.9 Rheumatoid arthritis, unspecified; Z96.41 Presence of insulin pump (external) (internal); Z79.4 Long term (current) use of insulin; Z79.899 Other long term (current) drug therapy | CPT/HCPCS: 99212 ==